=== PATIENT | male | born 1945 | race Caucasian/White ===

== ENCOUNTER 2023-10-25 20:20 | Outpatient (CLI) | payer MEDICARE, OTHER, SELFPAY ==
--- OUTSIDE RECORDS SUMMARY | 2023-10-25 20:26 | XMS_ITS | Encounter Summary ---
Author Name [facility] Organization [facility] Address [address] [place] [id number] Care Team Providers Care Graduate Rn Name Role Phone DEBBIE SYED Primary Care Provider Unavailabl e Insurance Providers: All historical and current Section Date Range: From patient's date of to the date document was created. This section includes the names of all active insurance providers for the patient. Insurance Provider Type of Coverage Plan Name Start of Policy Coverage End of Policy Coverage Group Number Member ID Insurance Provider's Telephone Number Policy Hawkins's Name Patient's Relationship to Policy Hawkins [employer]ICA [facility] (WNR) MEDICARE ADVANTAGE [facility] (WNR) Apr 10, 2021 [id number] KAT NAZARIO PATIENT MEDICARE (WNR) MEDICARE (M) PART A May 11, 1991 PART A [id number] [facility] [phone] KAT NAZARIO PATIENT MEDICARE (WNR) MEDICARE (M) PART B May 11, 1991 PART B [id number] KAT NAZARIO PATIENT Selected Encounter This section includes the information on record at [place] for the Encounter. Date/Time Encounter Type Encounter Description Reason Provider Source Mar 22, 2023 03:00 PM OFFICE O/P EST [place] 40-54 MIN PRIMARY CARE/MEDICINE ICD-10-CM I25.5 Ischemic cardiomyopathy MATTHEW SYED H I[facility] Encounter Template Text not used by [place] Assessments - Encounter Diagnoses This section includes the primary and secondary diagnoses documented for the Encounter. Date/Time Primary/Secondary Diagnosis Diagnosis Name Provider Source Mar 22, 2023 05:13 PM PRIMARY Ischemic cardiomyopathy MATTHEW SYED [facility] Mar 22, 2023 05:13 PM SECONDARY Acute embolism and thrombosis of unspecified vein MATTHEW SYED [facility] Mar 22, 2023 05:13 PM SECONDARY Athscl heart disease of [place] coronary artery w/o ang pctrs [facility] Mar 22, 2023 05:13 PM SECONDARY Stauffer's esophagus without dysplasia [facility] Mar 22, 2023 05:13 PM SECONDARY Chronic obstructive pulmonary disease, unspecified [facility] Mar 22, 2023 05:13 PM SECONDARY Essential (primary) hypertension YAHAIRAMATTHEW [facility] Mar 22, 2023 05:13 PM SECONDARY Hyperlipidemia, unspecified [facility] Mar 22, 2023 05:13 PM SECONDARY Hypokalemia [facility] Mar 22, 2023 05:13 PM SECONDARY terminal operations manager (current) use of anticoagulants MATTHEW SYED [facility] Mar 22, 2023 05:13 PM SECONDARY Nasal congestion [facility] Mar 22, 2023 05:13 PM SECONDARY Presence of aortocoronary bypass graft [facility] Plan of Treatment: Future Appointments (+ 6 months) and Future Tests (+/- 45 days) The Plan of Treatment section includes future care activities for the patient from all [facility]. This section includes future appointments and future orders which are active, pending or scheduled. Future Appointments This section includes appointments that were scheduled to occur 6 months from the date of the Encounter, up to a maximum of 20 appointments. The data comes from all [facility]. Appointment Date/Time Appointment Type Appointme nt Facility Name May 17, 2023 10:00 AM AMBULATORY - PS[facility]RY [facility] Jul 05, 2023 09:30 AM AM[facility] Jul 12, 2023 02:00 PM AMBULATORY - SURGERY [facility] Jul 12, 2023 03:00 PM AMBULATORY - PSYCHIATRY [facility] Sep 13, 2023 10:00 AM AMBULATORY - PSYCHIATRY [facility] Lab Results: +/- 30 days of the encounter This section includes the Chemistry and Hematology Lab Results on record with [place] for the patient. Radiology Reports and Pathology Reports are provided separately, in subsequent sections. Lab Results This section contains the Chemistry/Hematology Results that were resulted 30 days before or 30 daysafter the date of the Encounter. Date/Time Source Result Type Result - Unit Interpretation Reference Range Comment Mar 22, 2023 01:45 PM [facility] HEMOGLOBIN A1C Specimen Type: BLOOD Comment: Values obtained from A1C measurements can vary. For typical A1C assays, a reported value of 7.0 could actually be between 6.7 and 7.3 if measured by a reference method. A reported value of 9.0 could actually be between 8.7 and 9.3. Ref: http://www.ngs p.org/CAPdata. asp Ordering Provider: DUSTIN PIKE Report Released Date/Time: Mar 25, 2022 01:22 PM Reporting Lab: [facility] [id number] Performing Lab: [facility] [id number] HEMOGLOBIN A1C 4.9 4.0-6.0 Mar 22, 2023 01:45 PM [facility] LIPID PANEL,NON-FASTING Specimen Type: PLASMA No comment entered. Ordering Provider: DUSTIN PIKE Report Released Date/Time: Mar 25, 2022 01:22 PM Reporting Lab: [facility] [id number] Performing Lab: [facility] [id number] CHOLESTEROL 112 mg/dL <199 .HDL 50 mg/dL >40 LDL CALCULATION 42 mg/dL <99 VLDL CALCULATION 20 mg/dL <29 NON HDL CHOLESTEROL 62 mg/dL <129 TRIG(NON FASTING) 99 mg/dL <149 Mar 22, 2023 01:45 PM [facility] BASIC METABOLIC PANEL+MG Specimen Type: PLASMA No comment entered. Ordering Provider: DUSTIN PIKE Report Released Date/Time: Mar 25, 2022 01:22 PM Reporting Lab: [facility] [id number] Performing Lab: [facility] [id number] CREATININE 1.2 mg/dL 0.7-1.2 UREA NITROGEN 15 mg/dL 8-26 GLUCOSE 91 mg/dL 70-100 SODIUM 147 mmol/L H 136-145 POTASSIUM 2.8 mmol/L L 3.5-5.1 CHLORIDE 107 mmol/L 98-107 CO2 31 mmol/L H 22-29 CALCIUM 9.7 mg/dL 8.4-10.2 MAGNESIUM 2.1 mg/dL 1.6-2.6 ANION GAP 9 mmol/L 5-15 .CREAT EGFR(CKD-EPI) 63 >60 Vital Signs: All taken on the encounter date This section contains inpatient and outpatient Vital Signs collected on the date of the Encounter. Date/Time Temperature Pulse Blood Pressure Respiratory Rate SP02 Pain Height Weight Body Mass Index Source Mar 22, 2023 02:55 PM 97.3 F 91 /min 137/85 mm[Hg] 20 /min 91 % 0 66 in 248.5 lb 40 [place] [facility] Social History: Smoking Status (Most current) and Tobacco Use (All prior to encounter date) This section includes the most current, and the historical, smoking and tobacco- related health factors from the [place] facility where the Encounter took place. Current Smoking Status This section includes the most current smoking, or tobacco-related health factor, from the [place] facility where the Encounter took place. Date/Time Current Smoking Status Comment Facil ity Mar 22, 2023 03:00 PM VA-TOBACCO FORMER USER [facility] Tobacco Use History This section includes a history of the smoking, or tobacco-related health factors, that were collected on or before the date of the Encounter. The data comes from the [place] facility where the Encounter took place. Date/Time Smoking Status/Tobacco Use Comment F acility Mar 22, 2023 03:00 PM VA-TOBACCO QUIT 15 YRS OR MORE [facility] Mar 25, 2022 12:45 PM VA-TOBACCO FORMER USER [facility] Mar 25, 2022 12:45 PM VA-TOBACCO QUIT 15 YRS OR MORE [facility] Mar 18, 2021 10:00 AM VA-TOBACCO FORMER USER [facility] Mar 18, 2021 10:00 AM VA-TOBACCO QUIT 15 YRS OR MORE [facility] Oct 16, 2018 11:06 AM VA-TOBACCO FORMER USER [facility] Oct 16, 2018 11:06 AM VA-TOBACCO QUIT 15 YRS OR MORE [facility] Sep 08, 2017 10:30 AM FORMER TOBACCO USER 7Y OR JAKEE R [facility] September 02, 2016 10:04 AM FORMER TOBACCO USER 7Y OR GREATE R [facility] August 27, 2015 12:32 AM FORMER TOBACCO USER 7Y OR TASNEEM [place] [facility] August 28, 2014 08:53 AM FORMER TOBACCO USER 7Y OR TASNEEM R [facility] Sep 25, 2013 09:48 AM FORMER TOBACCO USER 7Y OR TASNEEM R [facility] Apr 25, 2006 10:07 AM FORMER TOBACCO USER 7Y OR [facility] [place] [facility] Advance Directives: All historical and current Section Date Range: From patient's date of to the date document was created. This section includes ALL of a patient's completed or amended [place] Advance and Rescinded Directives. The entries below indicate that a directive exists for the patient, but an actual copy is not included with this document. The data comes from all [place] facilities. Date Advance Directives Provider Source Apr 20, 2004 ADVANCE DIRECTIVE BABITA DIGGS [facility] Encounter Notes: All associated encounter notes This section contains the clinical notes associated to the Encounter. Date/Time Encounter Note(s) Provider Source Mar 22, 2023 02:58 PM INTERNAL MEDICINE OUTPATIENT NOTE: LOCAL TITLE: MEDICINE CLINIC NURSING NOTE STANDARD TITLE: INTERNAL MEDICINE OUTPATIENT NOTE DATE OF NOTE: MAR 22, 2023@14:58 ENTRY DATE: MAR 22, 2023@14:58:57 AUTHOR: BRE SOLANO COSIGNER: URGENCY: STATUS: COMPLETED TYPE OF VISIT: Appointment Check In Type of appointment: In-person appointment REASON FOR VISIT: annual check up ALLERGIES: LISINOPRIL (September 02, 2010) VITAL SIGNS: Blood Pressure: 137/85 (03/22/2023 14:55) Pulse: 91 (03/22/2023 14:55) Respiration: 20 (03/22/2023 14:55) Temperature: 97.3 F [36.3 C] (03/22/2023 14:55) Weight: 248.5 lb [112.72 kg] (03/22/2023 14:55) Height: 66 in [167.6 cm] (03/22/2023 14:55) BMI: 40.2 O2 Sat: 91% (03/22/2023 14:55) Pain: 0 (03/22/2023 14:55) PAIN SCREEN: Patient is not having significant pain that they wish to discuss with their provider today. MEDICATION Patient reports the following changes regarding the current pharmacy list of medications: stopped Multivitamins Over the Counter/Herbal Medications: The patient states that they take some outside medications and/or herbals. Nursing Annual Screening: Fall History Screen During the past 12 months, have you had any falls? Patient does not report any falls in the past 12 months. MEDICATIONS: Patient is on one of the following medication classes: Antihypertensives, Antidepressants, Antipsychotics, Diuretics, or Controlled substance medication used for pain. FALL RISK ADVICE: Fall Risk Advice provided. Handout entitled Fall Prevention At Home reviewed and given to patient and/or significant other. Script Talk Screen Are you able to read your prescription bottles with your glasses, magnifiers or other aids? Yes or patient not taking any prescriptions. Skin Screen Patient reports any current pressure ulcers, a history of pressure ulcers, or a wound from a medical biller or Patient is bed-confined or a wheelchair-user or Patient requires assistance to transfer/change position No, Skin Screen is Negative Home Abuse/Violence Screen Is your home free of abuse and violence? Yes MOVE! Program Screen Body Mass Index (BMI)= 40.2 [place]: Collection DT Specimen Test Name Result Units Ref Range 03/22/2023 13:45 BLOOD !! HEMOGLOBIN A1C 4.9 % 4.0 - 6.0 !! Indicates COMMENTS AVAILABLE...Refer to Interim Lab Report. [facility] Hgb A1C: No data available [place] Hgb A1C: No data available Point of Care Hgb A1C: POC HGB A1C____ Outpatient Nutrition Screen Body Mass Index (BMI)= 40.2 [place]: Collection DT Specimen Test Name Result Units Ref Range 03/22/2023 13:45 BLOOD !! HEMOGLOBIN A1C 4.9 % 4.0 - 6.0 !! Indicates COMMENTS AVAILABLE...Refer to Interim Lab Report. [facility]y Hgb A1C: No data available [place] Hgb A1C: No data available Point of Care Hgb A1C: POC HGB A1C____ Is patient's BMI less than 18.5? No Does patient have swallowing, coughing, or chewing problems affecting oral intake? No Has patient experienced unplanned weight loss or gain greater than 10 pounds over the last 2 months? No Is patient's Hgb A1C (Glycosylated Hemoglobin) greater than 9.5? No Is patient receiving Total Parenteral Nutrition (TPN) or Tube Feedings? No Patient Health Education Screen BARRIERS/SPECIAL NEEDS: Visual limitations PREFERRED STYLE OF LEARNING: Watching something Client Assistive Service (MARTHA) Screen Does the patient require assistance with outpatient visit? No Tobacco Use Screening: The patient is a former tobacco user. The patient quit fifteen or more years ago. Homelessness/Food Insecurity Screen: In the past 2 months, have you been living in stable housing that you own, rent, or stay in as part of a household? Yes - Living in stable housing. Are you worried or concerned that in the next 2 months you may NOT have stable housing that you own, rent, or stay in as part of a household? No - Not worried about housing near future The [place] reports the following: Within the past 12 months, you worried whether your food would run out before you got money to buy more. Never true Within the past 12 months, the food you bought just didn't last and you didn't have money to get more. Never true Food Insecurity Resources /es/ BRE SOLANO LPN LICENSED PRACTICAL NURSE Signed: 03/22/2023 15:02 BRE SOLANO [facility] Mar 22, 2023 02:30 PM INTERNAL MEDICINE NOTE: LOCAL TITLE: MEDICINE CLINIC NOTE STANDARD TITLE: INTERNAL MEDICINE NOTE DATE OF NOTE: MAR 22, 2023@14:30 ENTRY DATE: MAR 21, 2023@16:53:10 AUTHOR: DEBBIE SYED COSIGNER: URGENCY: STATUS: COMPLETED SUBJECT: CLINIC VISIT GENERAL INTERNAL MEDICINE CLINIC PROGRESS NOTE JANN NAZARIO is a 78 year old MALE with the following CHIEF COMPLAINT: ESTABLISH CARE WITH A NEW PHYSICIAN THIS AN ESTABLISHED PATIENT IN THE PRIMARY CARE CLINIC HPI: Jann has a medical history notable for CAD (x/p CABG 1997), Ischemic cardiomyopathy, HLD, HTN, Mental health conditions (PTSD, BPDO, Social phobia, Depression, Insomnia), AUD in remission, Obesity, ED, GAYLA, DVT LLE, On anticoagulation, Stauffer's esophagus, Venous insufficiency, COPD, Allergic rhinitis, Co-managed care Non [place] clinicians: Dr Bre Pham [facility] phone #[phone] Cardiology: ?name [place] clinicians following: Mental health Today, we reviewed 's health history in detail, outside records (if applicable and available), pertinent chart notes, medications, any need for refills, pertinent test results, and routine HCM. Additional concerns today included: Had left knee replaced in Dec. Recovering as anticipated. Today's potassium came back low. Asymptomatic. Reports his PCP prevously had him on a potassium supplement, but not currently. Has some nasal congestion/throat phlegm Wants fresh pair of compression stockings Tutor has made some med changes (unknown what exactly) The following preventive care screening and other chronic disease management records were reviewed: Immunizations: offered any vaccines that are due, see rooming staff note Blood pressure trends (home, clinic): reviewed BMI: Diet, Exercise: reviewed Labs: See test results section See nursing note regarding the following screening: Pain, suicide, depression, alcohol use, toxic exposures, fall risk, skin screen, home abuse/violence, nutriton, health education, tobacco use use. Today's nurse's notes were reviewed. Active problems - Computerized Problem List is the source for the followin. Posttraumatic stress disorder (SNOMED CT 78500526) 2. Obesity 3. CHRONIC PERIODONTITIS 4. UNSPECIFIED DENTAL CARIES 5. BROKEN TOOTH 6. UNSP ACQUIRED ABSENCE TEETH 7. Erectile dysfunction 8. Bipolar disorder 9. Nondependent alcohol abuse in remission 10. DENTAL DISORDER NOS 11. Social phobia 12. Ectropion, Unspec 13. Thromboembolism of vein - LLE x 3, on coumadin since 1994 14. Long-term current use of anticoagulant (SNOMED CT 353512144) 15. History of coronary artery bypass grafting 16. Tremor 17. Coronary arteriosclerosis (SNOMED CT 39523151) - CABG 3v 1997 at [facility] 18. Hyperlipidemia 19. Essential hypertension 20. Cataract nos 21. Depressive disorder 22. Peripheral venous insufficiency 23. Stauffer's esophagus (SNOMED CT 779735823) 24. Chronic obstructive lung disease (SNOMED CT 23478897) 25. ACCRETIONS ON TEETH 26. Sleep apnea - AVAPS: Min IPAP 24, Max 27, EPAP: 16, Vt: 560, Rate: 14, Med F20 27. Primary localised osteoarthrosis of shoulder region 28. Ischemic cardiomyopathy SURGICAL HISTORY: 12/19/2022 Left total knee arthroplasty FAMILY HISTORY: SOCIAL HISTORY: Relationship/Living situation: Children Occupation: Enjoys: Substance use history: Tobacco use, smoking: former, quit more than 15 years ago Smokeless tobacco use: Vaping: Alcohol use: dependence, in remission Recreational drug use: hx: Active and Recently Outpatient Medications (including Supplies): Active Outpatient Medications Status 1) ALBUTEROL 90MCG (CFC-F) 200D ORAL INHL INHALE 1-2 ACTIVE PUFFS 90MCG/ACTUAT BY INHALATION EVERY 4 HOURS NEEDED FOR SHORTNESS OF BREATH *SHAKE WELL* (FOR IMMEDIATE RELIEF) 2) BUPROPION HCL 150MG 12HR SA TAB TAKE ONE TABLET BY ACTIVE MOUTH TWICE A DAY FOR YOUR MOOD 3) BUSPIRONE HCL 10MG TAB TAKE TWO TABLETS BY MOUTH ACTIVE TWICE A DAY FOR ANXIETY -MAY ALSO TAKE TWO ADDITIONAL TABLETS DAILY IF NEEDED -MAXIMUM OF 6 TABLETS PER DAY 4) CARVEDILOL 12.5MG TAB TAKE ONE TABLET BY MOUTH TWICE ACTIVE A DAY FOR HEART FAILURE .FULL TAB, NOTE DOSE INCREASE 5) CHOLECALCIF 25MCG (D3-1,000UNIT) TAB TAKE ONE TABLET ACTIVE BY MOUTH EVERY MORNING 6) FLUTICASONE PROP 50MCG 120D NASAL INHL SPRAY 1 SPRAY ACTIVE IN EACH NOSTRIL EVERY MORNING USE REGULARLY FOR RELIEF OF ALLERGIES/CONGESTION 7) FUROSEMIDE 40MG TAB TAKE TWO TABLETS BY MOUTH TWICE A ACTIVE DAY 8) OLODATEROL/TIOTROP 2.5MCG/ACTUAT 60D INH INHALE 2 ACTIVE PUFFS BY INHALATION EVERY DAY TO PREVENT TROUBLE BREATHING 9) OMEPRAZOLE 20MG EC CAP TAKE ONE CAPSULE BY MOUTH ACTIVE EVERY DAY TO DECREASE STOMACH ACID -TAKE ON AN EMPTY STOMACH, AT LEAST 30 MINUTES BEFORE A MEAL 10) PRAVASTATIN NA 10MG TAB TAKE ONE TABLET BY MOUTH ACTIVE EVERY DAY CHOLESTEROL FOR CHOLESTEROL 11) PRIMIDONE 50MG TAB TAKE TWO TABLETS BY MOUTH EVERY ACTIVE DAY FOR TREMOR 12) SPIRONOLACTONE 25MG TAB TAKE ONE TABLET BY MOUTH ACTIVE EVERY MORNING 13) VANICREAM TOP CREAM APPLY A THIN LAYER TO DRY SKIN ACTIVE TOPICALLY TWICE A DAY XEROSIS TO MOISTURIZE 14) ZOLPIDEM TARTRATE 10MG TAB TAKE ONE TABLET BY MOUTH ACTIVE AT BEDTIME NEEDED FOR SLEEP Active Non-VA Medications Status 1) Non-VA FISH OIL 1000MG (500MG DHA/EPA) CAP 1GM MOUTH ACTIVE TWICE A DAY 2) Non-VA MULTIVITAMIN/MINERALS SENIOR FORMULA TAB 1 ACTIVE TABLET MOUTH EVERY DAY 3) Non-VA MULTIVITAMIN/OPTH AREDS SINGLE STR TAB 2 ACTIVE TABLETS MOUTH TWICE A DAY 4) Non-VA WARFARIN (COUMADIN) NA 5MG TAB 5MG MOUTH EVERY ACTIVE DAY MEDICATION RECONCILIATION: completed Allergies listed below were also reviewed/updated for accuracy. ALLERGIES: LISINOPRIL (September 02, 2010) EXAM: VITAL SIGNS: Blood Pressure: 137/85 (03/22/2023 14:55) Pulse: 91 (03/22/2023 14:55) Respiration: 20 (03/22/2023 14:55) Temperature: 97.3 F [36.3 C] (03/22/2023 14:55) Weight: 248.5 lb [112.72 kg] (03/22/2023 14:55) Height: 66 in [167.6 cm] (03/22/2023 14:55) BMI: 40.2 O2 Sat: 91% (03/22/2023 14:55) GEN: Alert, no acute distress EENT: Pupils equal, round, reactive to light. No icterus. Ear canals patent w/o significant cerumen, TM's normal,nasal passages clear w/normal appearing turbinates, oral mucosa moist,pharynx without erythema or exudate Neck: Full active ROM, no cervical lymphadenopathy,thyroid smooth, symmetric, no nodules Lungs: Clear to auscultation throughout Cardiac: Regular rate and rhythm, no murmurs, rubs or gallops, no carotid bruits, JVP: normal/not elevated Abdomen: Normal bowel sounds, soft, non tender,no hepatosplenomegaly or masses, no CVA tenderness or masses Extremities: No peripheral edema, is wearing his compression stockings DP pulses 2+ Skin: No rashes or suspicious lesions on exposed surfaces, no jaundice MSK: No joint deformities noted on hands Neuro: CN's 2-12 intact, able to get on/off exam table without assistance. Strength grossly intact. No tremor noted. Psych: actively engaged in conversation, full range of affect, no psychomotor slowing, no signs of agitation TEST RESULTS: Collection time: Mar 22, 2023@13:45 Test Name Result Units Range --------- ------ ----- ----- SODIUM 147 H mmol/L 136 - 145 POTASSIUM 2.8 L mmol/L 3.5 - 5.1 CHLORIDE 107 mmol/L 98 - 107 CO2 31 H mmol/L 22 - 29 ANION GAP 9 mmol/L 5 - 15 GLUCOSE 91 mg/dL 70 - 100 UREA NITROGEN 15 mg/dL 8 - 26 CREATININE 1.2 mg/dL 0.7 - 1.2 CALCIUM 9.7 mg/dL 8.4 - 10.2 MAGNESIUM 2.1 mg/dL 1.6 - 2.6 CHOLESTEROL 112 mg/dL Ref: <=199 TRIG(NON FASTING) 99 mg/dL Ref: <=149 .HDL 50 mg/dL Ref: >=40 LDL CALCULATION 42 mg/dL Ref: <=99 HEMOGLOBIN A1C 4.9 % 4.0 - 6.0 Collection time: Mar 25, 2022@11:39 Test Name Result Units Range --------- ------ ----- ----- SODIUM 143 mmol/L 136 - 145 POTASSIUM 4.1 mmol/L 3.5 - 5.1 CHLORIDE 106 mmol/L 98 - 107 CO2 28 mmol/L 22 - 29 ANION GAP 9 mmol/L 5 - 15 GLUCOSE 102 H mg/dL 70 - 100 UREA NITROGEN 22 mg/dL 8 - 26 CREATININE 1.2 mg/dL 0.7 - 1.2 .CREAT EGFR(CKD-EPI) 63 Ref: >=60 CALCIUM 9.3 mg/dL 8.4 - 10.2 MAGNESIUM 2.0 mg/dL 1.6 - 2.6 CHOLESTEROL 136 mg/dL Ref: <=199 TRIG(NON FASTING) 91 mg/dL Ref: <=149 .HDL 51 mg/dL Ref: >=40 LDL CALCULATION 67 mg/dL Ref: <=99 HEMOGLOBIN A1C 5.1 % 4.0 - 6.0 Specimen Collection Date: Jun 16, 1999@10:03 Test name Result units Ref. range Site Code ANTI-HEP C(EIA) NEGATIVE Ref: -neg- [618] Patient was informed of available lab, imaging, and other study results associated with today's visit. ASSESSMENT AND PLAN: CAD (x/p CABG 1997), Ischemic cardiomyopathy, HLD, HTN, Mental health conditions (PTSD, BPDO, Social phobia, Depression), AUD in remission, Obesity, ED, GAYLA, Hx DVT LLE, On anticoagulation, Stauffer's esophagus, Venous insufficiency, COPD, Hypokalemia on today's labs Nasal congestion Co-managed care Plan: Print out provided on potassium rich foods. Instructed to have BMP drawn by PCP in [facility] at next INR draw (4-6 weeks). PACT RN: please reach out to 's PCP office and inform them of the above plan regarding hypokalemia. See contact info above. Neti pot saline irrigation prn Prosthetics for replacement compression stockings Gave pamphlet on co-managed care, will need cardiology records if wants their prescriptions through [place] RTC one year Patient/Surrogate indicates readiness to learn, verbalizes understanding, agreement and satisfaction with the treatment plan. REMINDERS: Medication Reconciliation: Education Evaluations *Was medication education provided for NEW medications or CHANGES to medications? (including medication name, dose, route, reason for use, and potential side effects). No new medications or medication changes during this encounter. TERATOGENIC MED & CONTRACEPTION REVIEW (Optional)... === MEDICATION RECONCILIATION === Review Done: The medication list shown below was verified for accuracy and it includes all pending medications/active medications/all medications or discontinued within the last 90 days/all remote medications and non-VA medications. If a given category (i.e. remote meds) is not shown, that means that a patient doesn't have a medication(s) in that category. Allergies listed below were also reviewed/updated for accuracy. Allergies/ADR from [facility] may not display in CPRS. Use JLV MRT5 - Allergies/ADRs FACILITY ALLERGY/ADR -------- No Remote Allergy/ADR Data available for this patient [facility] LISINOPRIL Active and Recently Outpatient Medications (including Supplies): Issue Date Status Last Fill Active Outpatient Medications Refills Expiration 1) ALBUTEROL 90MCG (CFC-F) 200D ORAL INHL ACTIVE Issu:11-14-22 Qty: 2 for 50 days Sig: INHALE 1-2 Refills: 3 Last:12-14-22 PUFFS 90MCG/ACTUAT BY INHALATION EVERY Expr:11-15-23 4 HOURS NEEDED FOR SHORTNESS OF BREATH *SHAKE WELL* (FOR IMMEDIATE RELIEF) 2) BUPROPION HCL 150MG 12HR SA TAB Qty: ACTIVE Issu:11-09-22 180 for 90 days Sig: TAKE ONE TABLET Refills: 2 Last:01-28-23 BY MOUTH TWICE A DAY FOR YOUR MOOD Expr:11-10-23 3) BUSPIRONE HCL 10MG TAB Qty: 360 for 90 ACTIVE Issu:11-09-22 days Sig: TAKE TWO TABLETS BY MOUTH Refills: 3 Last:12-22-22 TWICE A DAY FOR ANXIETY -MAY ALSO TAKE Expr:11-10-23 TWO ADDITIONAL TABLETS DAILY IF NEEDED -MAXIMUM OF 6 TABLETS PER DAY 4) CARVEDILOL 12.5MG TAB Qty: 180 for 90 ACTIVE Issu:03-25-22 days Sig: TAKE ONE TABLET BY MOUTH Refills: 0 Last:12-13-22 TWICE A DAY FOR HEART FAILURE .FULL Expr:03-26-23 TAB, NOTE DOSE INCREASE 5) CHOLECALCIF 25MCG (D3-1,000UNIT) TAB ACTIVE Issu:03-25-22 Qty: 100 for 90 days Sig: TAKE ONE Refills: 0 Last:02-25-23 TABLET BY MOUTH EVERY MORNING Expr:03-26-23 6) FLUTICASONE PROP 50MCG 120D NASAL INHL ACTIVE Issu:03-25-22 Qty: 2 for 90 days Sig: SPRAY 1 SPRAY Refills: 2 Last:06-16-22 IN EACH NOSTRIL EVERY MORNING USE Expr:03-26-23 REGULARLY FOR RELIEF OF ALLERGIES/CONGESTION 7) FUROSEMIDE 40MG TAB Qty: 360 for 90 ACTIVE Issu:03-25-22 days Sig: TAKE TWO TABLETS BY MOUTH Refills: 1 Last:12-07-22 TWICE A DAY Expr:03-26-23 8) OLODATEROL/TIOTROP 2.5MCG/ACTUAT 60D INH ACTIVE Issu:03-25-22 Qty: 1 for 30 days Sig: INHALE 2 Refills: 6 Last:12-07-22 PUFFS BY INHALATION EVERY DAY TO Expr:03-26-23 PREVENT TROUBLE BREATHING 9) OMEPRAZOLE 20MG EC CAP Qty: 90 for 90 ACTIVE Issu:03-25-22 days Sig: TAKE ONE CAPSULE BY MOUTH Refills: 0 Last:02-01-23 EVERY DAY TO DECREASE STOMACH ACID Expr:03-26-23 -TAKE ON AN EMPTY STOMACH, AT LEAST 30 MINUTES BEFORE A MEAL 10) PRAVASTATIN NA 10MG TAB Qty: 90 for 90 ACTIVE Issu:03-25-22 days Sig: TAKE ONE TABLET BY MOUTH Refills: 2 Last:07-30-22 EVERY DAY CHOLESTEROL FOR CHOLESTEROL Expr:03-26-23 11) PRIMIDONE 50MG TAB Qty: 180 for 90 days ACTIVE Issu:12-16-22 Sig: TAKE TWO TABLETS BY MOUTH EVERY Refills: 3 Last:12-21-22 DAY FOR TREMOR Expr:12-17-23 12) SPIRONOLACTONE 25MG TAB Qty: 90 for 90 ACTIVE Issu:03-25-22 days Sig: TAKE ONE TABLET BY MOUTH Refills: 0 Last:02-01-23 EVERY MORNING Expr:03-26-23 13) VANICREAM TOP CREAM Qty: 454 for 60 ACTIVE Issu:03-25-22 days Sig: APPLY A THIN LAYER TO DRY Refills: 5 Last:03-28-22 SKIN TOPICALLY TWICE A DAY XEROSIS TO Expr:03-26-23 MOISTURIZE 14) ZOLPIDEM TARTRATE 10MG TAB Qty: 30 for ACTIVE Issu:03-10-23 30 days Sig: TAKE ONE TABLET BY MOUTH Refills: 2 Last:03-17-23 AT BEDTIME NEEDED FOR SLEEP Expr:09-10-23 Issue Date Status Last Fill Pending Outpatient Medications Refills Expiration 1) CARVEDILOL 12.5MG TAB Qty: 180 Sig: PENDING TAKE ONE TABLET BY MOUTH TWICE A DAY Refills: 0 .FULL TAB, NOTE DOSE INCREASE 2) CHOLECALCIF 25MCG (D3-1,000UNIT) TAB PENDING Qty: 100 Sig: TAKE ONE TABLET BY Refills: 0 MOUTH EVERY MORNING 3) FUROSEMIDE 40MG TAB Qty: 360 Sig: TAKE PENDING TWO TABLETS BY MOUTH TWICE A DAY Refills: 0 4) OLODATEROL/TIOTROP 2.5MCG/ACTUAT 60D INH PENDING Qty: 1 Sig: INHALE 2 PUFFS BY Refills: 0 INHALATION EVERY DAY TO PREVENT TROUBLE BREATHING 5) OMEPRAZOLE 20MG EC CAP Qty: 90 Sig: PENDING TAKE ONE CAPSULE BY MOUTH EVERY DAY TO Refills: 0 DECREASE STOMACH ACID -TAKE ON AN EMPTY STOMACH, AT LEAST 30 MINUTES BEFORE A MEAL 6) PRAVASTATIN NA 10MG TAB Qty: 90 Sig: PENDING TAKE ONE TABLET BY MOUTH EVERY DAY FOR Refills: 0 CHOLESTEROL 7) SPIRONOLACTONE 25MG TAB Qty: 90 Sig: PENDING TAKE ONE TABLET BY MOUTH EVERY MORNING Refills: 0 8) VANICREAM TOP CREAM Qty: 454 Sig: PENDING APPLY A THIN LAYER TO DRY SKIN Refills: 0 TOPICALLY TWICE A DAY TO MOISTURIZE Issue Date Status Last Fill Inactive Outpatient Medications Refills Expiration 1) ALBUTEROL 90MCG (CFC-F) 200D ORAL INHL DISCONTINUED Issu:12-24-21 Qty: 2 for 50 days Sig: INHALE 1-2 Refills: 0 Last:11-09-22 PUFFS 90MCG/ACTUAT BY INHALATION EVERY Expr:12-25-22 4 HOURS NEEDED FOR SHORTNESS OF BREATH *SHAKE WELL* (FOR IMMEDIATE RELIEF) 2) BUPROPION HCL 150MG 12HR SA TAB Qty: DISCONTINUED Issu:07-04-22 180 for 90 days Sig: TAKE ONE TABLET Refills: 3 Last:07-07-22 BY MOUTH TWICE A DAY FOR YOUR MOOD Expr:07-05-23 3) BUSPIRONE HCL 10MG TAB Qty: 360 for 90 DISCONTINUED Issu:07-04-22 days Sig: TAKE TWO TABLETS BY MOUTH Refills: 2 Last:09-23-22 TWICE A DAY FOR ANXIETY -MAY ALSO TAKE Expr:07-05-23 TWO ADDITIONAL TABLETS DAILY IF NEEDED -MAXIMUM OF 6 TABLETS PER DAY 4) LOSARTAN 50MG TAB Qty: 90 for 90 days Issu:12-24-21 Sig: TAKE ONE TABLET BY MOUTH EVERY Refills: 0 Last:09-14-22 DAY FOR BLOOD PRESSURE Expr:12-25-22 5) PRIMIDONE 50MG TAB Qty: 135 for 90 days DISCONTINUED Issu:08-17-22 Sig: TAKE ONE AND ONE-HALF TABLETS BY (EDIT) Last:12-07-22 MOUTH EVERY DAY FOR TREMOR Refills: 2 Expr:08-18-23 6) PRIMIDONE 50MG TAB Qty: 90 for 90 days DISCONTINUED Issu:03-25-22 Sig: TAKE ONE TABLET BY MOUTH EVERY Refills: 2 Last:07-27-22 MORNING Expr:03-26-23 7) ZOLPIDEM TARTRATE 10MG TAB Qty: 30 for DISCONTINUED Issu:02-21-23 30 days Sig: TAKE ONE TABLET BY MOUTH Refills: 2 Last:02-25-23 AT BEDTIME NEEDED FOR SLEEP Expr:08-24-23 Start Date Active Non-VA Medications Refills Expiration 1) Non-VA FISH OIL 1000MG (500MG DHA/EPA) ACTIVE CAP SiGM MOUTH TWICE A DAY 2) Non-VA MULTIVITAMIN/MINERALS SENIOR ACTIVE FORMULA TAB Si TABLET MOUTH EVERY DAY 3) Non-VA MULTIVITAMIN/OPTH AREDS SINGLE ACTIVE STR TAB Si TABLETS MOUTH TWICE A DAY 4) Non-VA WARFARIN (COUMADIN) NA 5MG TAB ACTIVE SiMG MOUTH EVERY DAY 33 Total Medications Time spent today, including reviewing prior VA- and non-VA notes and test results, independently obtaining history, performing a medically appropriate exam and/or evaluation, documenting clinical information in the EHR progress note, updating the EHR problem list, independently interpreting results, communicating results, counseling and educating patient/surrogate, coordinating care with other health team members, entering orders, completing reminders and coding the encounter: Total Time: 45 min Debbie Syed MD General Internal Medicine [facility] VINCENZO Mcginnis /es/ Debbie Syed MD Physician Signed: 03/22/2023 17:13 DEBBIE SYED [facility]
--- OUTSIDE RECORDS SUMMARY | 2023-10-25 20:26 | XMS_ITS | Encounter Summary ---
Author Organization [facility] Address [address] [place] [address] Care Team Providers Care Flask Handler Name Role Phone Bre Pham MD Primary Care Provider [phone] Encounter Details Date Type Department Care Team (Late st Contact Info) Description 08/03/2023 Office Communication [facility] [address] [place] [address] Angel Bains MD [address] [place] [address] Social History Tobacco Use Types Packs/Day Years Used Date Smoking Tobacco: Former Cigarettes 1 20 1 977 - 1996 Smokeless Tobacco: Never Alcohol Use Standard Drinks/Week Comments Not Currently 0 (1 standard drink = 0.6 oz pure alcohol) Stopped drinking 31 years ago Sex and Gender Information Value Date Recorded Sex Assigned at Not on file Gender Identity Not on file Sexual Orientation Not on file documented as of this encounter Miscellaneous Notes * Telephone Encounter - Abiodun Das - 08/03/2023 12:37 PM CDT Second call attempt made to reach the patient for scheduling. Mailed the Established Patient Letter to the patient to schedule 6 mos follow up in October with Dr. Bains. documented in this encounter Plan of Treatment Not on file documented as of this encounter Visit Diagnoses Not on filedocumented in this encounter Care Teams Flask Handler Relationship Specialty Start Date End Date Bre Pham MD [address] [facility] [place] [address] PCP - General Internal Medicine 04/16/23 documented as of this encounter
--- OUTSIDE RECORDS SUMMARY | 2023-10-25 20:26 | XMS_ITS | Encounter Summary ---
Author Organization [facility] Address [address] [place] [address] Care Team Providers Care Ultrasound Technologist Name Role Phone Bre Pham MD Primary Care Provider [phone] Encounter Details Date Type Department Care Team (Late st Contact Info) Description 08/03/2023 Office Communication [facility] [place] [address] [place] [address] Angel Bains MD [address] [place] [address] Social History Tobacco Use Types [...] Telephone Encounter - Abiodun Das - 08/03/2023 12:34 PM CDT Second call attempt made to reach the patient for scheduling. Mailed the Established Patient Letter to the patient to schedule 6 mos follow up with [address]. Bains. documented in this encounter Plan of Treatment Not on file documented as of this encounter Visit Diagnoses Not on filedocumented in this encounter Care Teams Ultrasound Technologist Relationship Specialty Start Date End Date Bre Pham MD [address] [place] [address] PCP - General Internal Medicine 04/16/23 documented as of this encounter
--- OUTSIDE RECORDS SUMMARY | 2023-10-25 20:26 | XMS_ITS | Encounter Summary ---
Author Name [facility] Organization [facility] Address [address] [place] [address] Care Team Providers Care Marklogic Developer Name Role Phone ZOLTAN SYED Primary Care Provider Unavailabl e Insurance [...] Name Patient's Relationship to Policy Hawkins MEDICA [facility] (WNR) MEDICARE ADVANTAGE [facility] (WNR) Apr 10, 2021 [id number] [phone] [place]AT [place] PATIENT MEDICARE (WNR) MEDICARE (M) PART A May 11, 1991 PART A [id number] KAT NAZARIO PATIENT MEDICARE (WNR) MEDICARE (M) PART B May 11, 1989 PART B [id number] [phone] KAT NAZARIODiana PATIENT Selected Encounter This section includes the information on record at [place] for the Encounter. Date/Time Encounter Type Encounter Description Reason Pro vider Source Nov 01, 2022 05:56 PM Outpatient Encounter COMMUNITY CARE CONSULT IHE Encounter Template Text not used by VA Plan of Treatment: Future Appointments (+ 6 months) and Future Tests (+/- 45 days) The Plan of Treatment section includes future care activities for the patient from all VA treatmentfacilities. This section includes future appointments and future orders which are active, pending or scheduled. Future Appointments This section includes appointments that were scheduled to occur 6 months from the date of the Encounter, up to a maximum of 20 appointments. The data comes from all [place] treatment facilities. Appointment Date/Time Appointment Type Appointme nt Facility Name Nov 09, 2022 09:30 AM [place] [facility] Jan 09, 2023 10:00 AM [place] [facility] Mar 08, 2023 09:30 AM [place] [facility] Mar 22, 2023 01:45 PM [place] [facility] Mar 22, 2023 02:00 PM [place] [facility] Mar 22, 2023 03:00 [facility] Social History: Smoking Status (Most current) and Tobacco Use (All prior to encounter date) This section includes the most current, and the historical, smoking and tobacco- related health factors from the [place] facility where the Encounter took place. Current Smoking Status This section includes the most current smoking, or tobacco-related health factor, from the [place] facility where the Encounter took place. Date/Time Current Smoking Status Comment Facil ity Mar 25, 2022 12:45 PM VA-TOBACCO FORMER USER [facility] Tobacco Use History This section includes a history of the smoking, or tobacco-related health factors, that were collected on or before the date of the Encounter. The data comes from the [place] facility where the Encounter took place. Date/Time Smoking Status/Tobacco Use Comment F acility Mar 25, 2022 12:45 PM VA-TOBACCO QUIT 15 YRS OR MORE [facility] Mar 18, 2021 10:00 AM VA-TOBACCO FORMER USER [facility] Mar 18, 2021 10:00 AM VA-TOBACCO QUIT 15 YRS OR MORE [facility] Oct 16, 2018 11:06 AM VA-TOBACCO FORMER USER [facility] Oct 16, 2018 11:06 AM VA-TOBACCO QUIT 15 YRS OR MORE [facility] Sep 08, 2017 10:30 AM FORMER TOBACCO USER 7Y OR GREATE R [facility] September 02, 2016 10:04 AM FORMER TOBACCO USER 7Y OR [facility] August 27, 2015 12:32 AM FORMER TOBACCO USER 7Y OR [facility] August 28, 2014 08:53 AM FORMER TOBACCO USER 7Y OR [facility] Sep 25, 2013 09:48 AM FORMER TOBACCO USER 7Y OR [facility] Apr 25, 2006 10:07 AM FORMER TOBACCO USER 7Y OR [facility] Advance Directives: All historical and current Section Date Range: From patient's date of to the date document was created. This section includes ALL of a patient's completed or amended [place] Advance and Rescinded Directives. The entries below indicate that a directive exists for the patient, but an actual copy is not included with this document. The data comes from all [place] facilities. Date Advance Directives Provider Source Apr 20, 2004 ADVANCE DIRECTIVE BABITA DIGGS [facility] Encounter Notes: All associated encounter notes This section contains the clinical notes associated to the Encounter. Date/Time Encounter Note(s) Provider Source Nov 01, 2022 05:56 PM PHARMACY NOTE: LOCAL TITLE: PHARMACY NON [place] CARE MEDICATIONS STANDARD TITLE: PHARMACY NOTE DATE OF NOTE: NOV 01, 2022@17:56 ENTRY DATE: NOV 01, 2022@17:56:58 AUTHOR: ENRIQUE HILARIO EXP COSIGNER: URGENCY: STATUS: COMPLETED The [facility] RECEIVED electronic prescription(s) faxed from a NON-[place] Provider: Bre Pham Regarding Patient: JANN NAZARIO Date of : Feb Regarding PRESCRIPTION(s) written on 10/31/22 for: Medication:Primidone 50mg tab Medication: Medication: The NON-VA provider is unauthorized to write prescription(s) through the [facility] pharmacy. Prescription request REDIRECTED via FAX to one of the following for review: [x][facility] []Other: [] [facility] [] [facility] ([place] [] [facility] [] [facility] /[place]/ ENRIQUE HILARIO Process Engineering Intern Signed: 11/01/2022 17:57 ENRIQUE HILARIO [facility]
--- OUTSIDE RECORDS SUMMARY | 2023-10-25 20:26 | XMS_ITS | Encounter Summary ---
Author Organization [facility] Address [address] [place] [address] Care Team Providers Care Cleaning Maid Name Role Phone Bre Pham MD Primary Care Provider [phone] Reason for Visit * Reason Comments Follow-up Encounter Details Date Type Department Care Team (Late st Contact Info) Description 10/17/2023 11:00 AM EDT Office Visit [facility] [address] [place] [address] Angel Bains MD [address] [place] [address] Stage 3a chronic kidney disease (HCC) (Primary Dx); Hyperkalemia; Chronic systolic congestive heart failure (HCC) Social History Tobacco Use Types Packs/Day Years Used Date Smoking Tobacco: Former Cigarettes 977 - 1996 Smokeless Tobacco: Never Tobacco Cessation:Counseling Given: Not Answered Alcohol Use Standard Drinks/Week Comments Not Currently 0 (1 standard drink = 0.6 oz pure alcohol) Stopped drinking 31 years ago Sex and Gender Information Value Date Recorded Sex Assigned at Not on file Gender Identity Not on file Sexual Orientation Not on file documented as of this encounter Last Filed Vital Signs Vital Sign Reading Time Taken Comments Blood Pressure 122/58 10/17/2023 10:39 AM CDT Pulse 62 10/17/2023 10:39 AM CDT Temperature - - Respiratory Rate - - Oxygen Saturation 85% 10/17/2023 10:39 AM CDT Inhaled Oxygen Concentration - - Weight 108 kg (237 lb) 10/17/2023 10:39 AM CDT Height 160 cm (5' 3) 10/17/2023 10:39 AM CDT Body Mass Index 41.98 10/17/2023 10:39 AM CDT documented in this encounter Patient Instructions * Patient Instructions* Sylwia Gomez - 10/17/2023 11:00 AM CDT It was very nice to see both you and your today. Continue your current medications as you are taking at this time. We will plan for you to have a blood test towards the end of this week as scheduled along with your INR testing to address your potassium as well as your kidney function. Specifically since you were restarted on the spironolactone. If you need to be seen sooner or rehab if you have questions or concerns in the meantime, please do not hesitate to contact me at any time. We will contact you to schedule your 1 year follow up when the schedule becomes available. Labs should be completed 1-2 weeks prior. They will be faxed to Claudia Bains/DIYA Dao documented in this encounter Progress Notes * Angel Bains MD - 10/17/2023 11:00 AM CDT Images from the original note were not included. Patient: Alirio Bocanegra Date of : 1945 Chart: [id number] PCP: Bre Pham MD Cardiology: Ryan Barnhart Date of Service: 10/17/2023 Chief Complaint: Alirio Bocanegra returns in follow-up for CKD. Subjective: Patient returns in follow-up of the above. He was originally seen by me as a new patient in April2023. At that visit we confirmed stability in GFR and asked that he continue his usual cardiovascular medications which included MRA and Entresto. Blood work at that visit showed a creatinine of 1.02and a potassium of 3.8. In the interim he was admitted for 3 days in late August 2023 with an episode of near syncope. Just prior to this he underwent right [facility] with his postoperativecourse complicated by hyperkalemia. He was discharged on Entresto and carvedilol. Imaging of the chest has shown potentially worsening COPD. August 2023 labs showed a potassium of 4.4 and creatinine of 0.91. I note that his spironolactone was restarted on 21 September but follow-up BMP has not been performed toaddress both creatinine and potassium. He reports feeling well. He is visiting with his blueprinter later today. Assessment & Plan Problem List Stage 3a chronic kidney disease (HCC) - Primary Overview Erratic value stretching between 0.9-1.4 range from 2009-January 2013. There are no urinary records. CT of the chest July 2020: Normal adrenal glands. Probable renal parenchymal thinning incompletelyvisualized. Suspect underlying CKD from small vessel disease, hypertensive nephrosclerosis, and possible physiologic impact from cardiorenal syndrome. Certainly more erratic GFR as result of combination ARB and aldosterone blockade. With respect to future cares, he would refuse long- term dialysis if/when indicated. On the other hand he would consent to dialysis on an emergency basis if it meant that there was a chance for his kidneys to return. Current Assessment & Plan Stable. Planning to repeat blood work later this week when he has his INR done to assure stability and both potassium and creatinine. Continue current medications as ordered at this time. Relevant Orders Basic metabolic panel Chronic systolic congestive heart failure (HCC) Overview Echocardiogram June 2021: EF 40-45% with grade 2 pattern of LV diastolic dysfunction with no significant valve disease and aortic valve sclerosis. Ischemic cardiomyopathy (status post CABG in 1997). Status post PPM (2017) with upgrade to biventricular pacemaker (March 2020) Current Assessment & Plan Stable. Well compensated. Continue current medication regimen including Entresto, spironolactone, and loop diuretic. Hyperkalemia (Chronic) Current Assessment & Plan As noted in the narrative with hyperkalemia in August. Renal lactone restarted on 21 September but follow-up BMP has not been performed. Will plan for this follow-up blood work later this week. Return in about 1 year (around 10/16/2024) for Recheck. Angel Bains MD [facility] The following portions of the patient's chart were reviewed in this encounter and updated as appropriate: Tobacco Allergies Meds Problems Med Hx Surg Hx Fam Hx Review of Systems All other systems reviewed and are negative. Comprehensive ROS was obtained and negative unless otherwise noted in HPI Active Problems Patient Active Problem List Diagnosis Hypertensive chronic kidney disease with stage 1 through stage 4 chronic kidney disease, or unspecified chronic kidney disease Stage 3a chronic kidney disease (HCC) Obesity Elevated prostate specific antigen (PSA) Peripheral vascular disease (HCC) Chronic systolic congestive heart failure (HCC) Deep venous thrombosis (HCC) Pulmonary fibrosis (HCC) Adult obstructive sleep apnea Hyperkalemia History of Present Illness Past Medical History: Diagnosis Date Coronary atherosclerosis of unspecified type of vessel, [place] or graft Essential hypertension Other and unspecified hyperlipidemia Sleep apnea Past Surgical History: Procedure Laterality Date CARDIAC PACEMAKER PLACEMENT Family History Problem Relation Age of Onset Hypertension Mother Macular degeneration Mother Arthritis Mother Cancer Father No Known Problems Sister Cancer Sister No Known Problems Mother's Sister No Known Problems Maternal Grandmother No Known Problems Maternal Grandfather No Known Problems Paternal Grandmother No Known Problems Paternal Grandfather Social History Tobacco Use Smoking status: Former Current packs/day: 0.00 Average packs/day: 1 pack/day for 20.0 years (20.0 ttl pk-yrs) Types: Cigarettes Start date: 1976 Quit date: 1996 Years since quittin.5 Smokeless tobacco: Never Vaping Use Vaping status: Never Used Substance Use Topics Alcohol use: Not Currently Comment: Stopped drinking 31 years ago Drug use: Never Taking? Provider LT acetaminophen (TYLENOL) 500 MG tablet Murali Arias MD Take 1,000 mg by mouth if needed albuterol HFA (PROVENTIL HFA;VENTOLIN HFA) 108 (90 Base) MCG/ACT inhaler Murali Arias MD Inhale 2 puffs 4 (four) times a day if needed amoxicillin (AMOXIL) 500 MG tablet Murali Arias MD Take 4 capsules by mouth 1 (one) time if needed Take 4 capsule by mouth 1 hour prior to any dental procedure, including routine cleaning brimonidine-timolol (Combigan) 0.2-0.5 % ophthalmic solution Murali Arias MD Administer 1 drop into affected eye(s) in the morning and 1 drop in the evening. buPROPion SR (WELLBUTRIN SR) 150 MG 12 hr tablet Murali Arias MD Take 150 mg by mouth in the morning and 150 mg in the evening. busPIRone (BUSPAR) 10 MG tablet Murali Arias MD Take 20 mg by mouth in the morning and 20 mg in the evening. carvedilol (COREG) 12.5 MG tablet Murali Arias MD Take 1 tablet by mouth in the morning and 1 tablet in the evening. Take with meals. cholecalciferol (VITAMIN D-3) 25 MCG (1000 UT) capsule Murali Arias MD Take 1,000 Units by mouth in the morning. COD LIVER OIL PO Murali Arias MD Take 1 tablet by mouth 1 (one) time each day Empagliflozin (Jardiance) 10 MG tablet Murali Arias MD Take 1 tablet by mouth 1 (one) time each day fluticasone (FLONASE) 50 MCG/ACT nasal spray Murali Arias MD Administer 2 sprays into affected nostril(s) if needed furosemide (LASIX) 40 MG tablet Murali Arias MD Take 40 mg by mouth in the morning and 40 mg in the evening. latanoprost (XALATAN) 0.005 % ophthalmic solution Murali Arias MD Administer 1 drop into both eyes 1 (one) time each day omeprazole (PriLOSEC) [address] capsule Murali Arias MD Take 20 mg by mouth in the morning. primidone (MYSOLINE) 50 MG tablet Murali Arias MD Take 50 mg by mouth in the morning and 50 mg in the evening. rosuvastatin (CRESTOR) 20 MG tablet Murali Arias MD Take 1 tablet by mouth at bed time sacubitril-valsartan (Entresto) 49-51 MG per tablet Murali Arias MD Take 1 tablet by mouth in the morning and 1 tablet in the evening. senna-docusate (PERICOLACE) 8.6-50 MG per tablet Murali Arias MD Take 1-4 tablets by mouth 2 (two) times a day if needed spironolactone (ALDACTONE) 25 MG tablet Murali Arias MD Take 25 mg by mouth 1 (one) time each day Thiamine Mononitrate 100 MG tablet Murali Arias MD Take 100 mg by mouth in the morning. Vitamin B1 tab. Tiotropium [place]-Olodaterol 2.5-2.5 MCG/ACT aerosol solution Murali Arias MD Inhale 2 puffs if needed warfarin (COUMADIN) 5 MG tablet Murali Arias MD Take 5 mg by mouth Monday, , Monday 5 mg (1 tab), Monday, Monday, Monday, Monday 2.5 mg (0.5 tabs) zolpidem (AMBIEN) 10 MG tablet Murali Arias MD Take 10 mg by mouth at bed time Patient not taking: Allergies Allergen Reactions Lisinopril Other (see comments) Physical Exam BP 122/58 (BP Location: Left upper arm, Patient Position: Sitting, BP Cuff Size: Adult) Pulse 62 Ht 5' 3 (1.6 m) Wt 237 lb (108 kg) SpO2 (!) 85% BMI 41.98 kg/m?? Vitals reviewed. Constitutional: He is oriented to person, place, and time. Cardiovascular: Normal rate and regular rhythm. He exhibits no edema. Pulmonary/Chest: Effort normal and breath sounds normal. Abdominal: Soft. Bowel sounds are normal. Musculoskeletal: Normal range of motion. Neurological: He is alert and oriented to person, place, and time. Skin: Skin is warm and dry. Psychiatric: He has a normal mood and affect. His behavior is normal. Judgment normal. Chemistry and Bone Mineral Lab Units 04/17/23 1400 02/07/23 0000 10/12/22 0000 SODIUM mmol/L 146 144 140 POTASSIUM mmol/L 3.8 4.6 3.2* CHLORIDE mmol/L 105 107 102 CO2 mmol/L 29 27 29 CALCIUM mg/dL 9.8 9.8 9.6 GLUCOSE mg/dL 83 107* 106* BUN mg/dL 14 23 19 CREATININE mg/dL 1.02 1.33* 1.39* EGFR mL/min/1.73m2 76 56* 53* No lab exists for component: GLUCOSEUR, BILIRUBINUR, SPECGRAV, RBCUR, LEUKOCYTESUR, NITRITE I have performed a complete review of pertinent lab results. documented in this encounter Miscellaneous Notes * Assessment & Plan Note - Angel Bains MD - 10/17/2023 12:51 PM CDTAssociated Problem(s): Chronic systolic congestive heart failure (HCC) Stable. Well compensated. Continue current medication regimen including Entresto, spironolactone, and loop diuretic. * Assessment & Plan Note - Angel Bains MD - 10/17/2023 12:51 PM CDTAssociated Problem(s): Hyperkalemia As noted in the narrative with hyperkalemia in August. Renal lactone restarted on 21 September but follow-up BMP has not been performed. Will plan for this follow-up blood work later this week. * Assessment & Plan Note - Angel Bains MD - 10/17/2023 12:51 PM CDTAssociated Problem(s): Stage 3a chronic kidney disease (HCC) Stable. Planning to repeat blood work later this week when he has his INR done to assure stability and both potassium and creatinine. Continue current medications as ordered at this time. documented in this encounter Plan of Treatment Scheduled Orders Name Type Priority Associated Diagnoses Orde r Schedule Basic metabolic panel Lab Routine Stage 3a chronic kidney disease (HCC) Expected: 10/16/2024 (Approximate), Expires: 11/16/2024 documented as of this encounter Visit Diagnoses Diagnosis Stage 3a chronic kidney disease (HCC)- Primary Hyperkalemia Chronic systolic congestive heart failure (HCC) documented in this encounter Care Teams Cleaning Maid Relationship Specialty Start Date End Date Bre Pham MD [address] [facility] [place] [id number] PCP - General Internal Medicine 04/16/23 documented as of this encounter
--- OUTSIDE RECORDS SUMMARY | 2023-10-25 20:26 | XMS_ITS | Continuity of Care Document ---
Author Name [facility] Organization [facility] Care Team Providers Care Rd Mechanical Engineer Name Role Phone [facility] Unavailable Unavailable Problems Combined list of problems from Department of Defense and [facility] Affairs facilities. It does not include entries that were removed or entered in error. Problem Status Onset Date Problem Type Date of Resolution Comments Source ACCRETIONS ON TEETH Active Condition [place] [facility] Alcohol dependence Active Condition D 2022 Entered By: ZOLTAN YSED Comment: in remission [facility] Allergic rhinitis Active Condition [facility] Stauffer's esophagus (SNOMED CT 409682257) Active Condition [facility]ipolar disorder Active Condition [facility] BROKEN TOOTH Active Condition [facility] Cataract nos Active Condition [facility] Chronic obstructive lung disease (SNOMED CT 47372484) Active Condition [facility] CHRONIC PERIODONTITIS Active Condition [facility] Coronary arteriosclerosis (SNOMED CT 01671095) Active Condition Mar 21, 2023 Entered By: ZOLTAN SYED Comment: CABG 3v 1997 at [facility] DENTAL DISORDER NOS Active Condition [facility] Depressive disorder Active Condition [facility] Ectropion, Unspec Active Condition [facility] Erectile dysfunction Active Condition [facility] Essential hypertension Active Condition [facility] Exposure to potentially hazardous substance Active Condition Mar 21, 2023 Entered By: ZOLTAN SYED Comment: Agent [place] [facility] History of coronary artery bypass grafting Active Condition [facility] Hyperlipidemia [facility] Insomnia Active Condition [facility] Ischemic cardiomyopathy Active Condition [facility] Long-term current use of anticoagulant (SNOMED CT 126916810) Active Condition [facility] Obesity Active Condition Feb 27 Entered By: FREDI FLOREZ Comment: 10 [address] 04-27-12 276.5 --> 08-17-12 270.5 lbs [facility] Peripheral venous insufficiency Active Condition [facility] Posttraumatic stress disorder (SNOMED CT 82195989) Active Condition [facility] 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 [place] [facility] Sleep apnea Active Condition Dec 13, 2022 Entered By: JOHNY YEPEZ Comment: AVAPS: Min IPAP 24, Max 27, EPAP: 16, Vt: 560, Rate: 14, Med F20 [facility] Social phobia [facility] Thromboembolism of vein Active Condition Jul 07, 2004 Entered By: LEVI BRYAN Comment: LLE x 3, on coumadin since 1994 [facility] Tremor Active Condition [facility] UNSP ACQUIRED ABSENCE TEETH Active Condition [facility] UNSPECIFIED DENTAL CARIES Active Condition [facility] Tardive Dyskinesia Inactive Condition 02/17/2004 [facility] Diagnosis: ICD-10-CM F43.12 Post-traumatic stress disorder, chronic Active Diagnosis [facility] Diagnosis: ICD-10-CM G47.30 Sleep apnea, unspecified Active Diagnosis [facility] Diagnosis: ICD-10-CM K08.131 Complete loss of teeth due to caries, class I [facility] Diagnosis: ICD-10-CM I25.5 Ischemic cardiomyopathy Active Diagnosis [facility] Diagnosis: ICD-10-CM G47.33 Obstructive sleep apnea (adult) (pediatric) Active Diagnosis [facility] Diagnosis: ICD-10-CM R60.9 Edema, unspecified Active Diagnosis [facility] Diagnosis: ICD-10-CM I12.9 Hypertensive chronic kidney disease w 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 Medication Details Route Status Patient Instructions Prescription Expires Prescription Number Last Dispense Date Ordering Provider Order Date Order Qty Source ALBUTEROL 90MCG/ACTUA T (CFC-F) INHL,ORAL,8 .5GM DOSE COUNTER ALBUTERO L 90MCG/AC TUAT (CFC-F) INHL,ORA L,8.5GM DOSE COUNTER Active INHALE 1-2 PUFFS 90MCG/AC TUAT BY INHALATI ON EVERY 4 HOURS NEEDED FOR SHORTNES S OF BREATH *SHAKE WELL* (FOR IMMEDIAT E RELIEF) Nov 14, 2022 2 Nov 15, 2023 [id number] September 02, 2023 YAHA[place]A ZOL[place]AN [place] [facility] RESPIR ATORY (INHAL ATION) ACTIVE 11/15/2023 [id number] ZOLTAN SYED 2022 2 [place] [facility] ALBUTEROL 90MCG/ACTUA T (CFC-F) INHL,ORAL,8 .5GM DOSE COUNTER ALBUTERO L 90MCG/AC TUAT (CFC-F) INHL,ORA L,8.5GM DOSE COUNTER Disconti nued INHALE 1-2 PUFFS 90MCG/AC TUAT BY INHALATI ON EVERY 4 HOURS NEEDED FOR SHORTNES S OF BREATH *SHAKE WELL* (FOR IMMEDIAT E RELIEF) Dec 24, 2021 2 Dec 25, 2022 [id number] Nov 09, 2022 MARCIE PIKE [facility] RESPIR ATORY (INHAL ATION) DISCONT INUED 12/25/2022 [id number] MARCIE PIKE 2021 2 [place] [facility] BUPROPION HCL 150MG 12HR TAB,SA BUPROPIO N HCL 150MG 12HR TAB,SA Active TAKE ONE TABLET BY MOUTH TWICE A DAY FOR YOUR MOOD Jul 05, 2023 180 Jul 05, 2024 [id number] F Sep 23, 2023 INES LINARES RA [place] [facility] ORAL ACTIVE 07/05/2024 [id number] 4 ALICJA CRUZ 2023 180 [facility] BUPROPION HCL 150MG 12HR TAB,SA BUPROPIO N HCL 150MG 12HR TAB,SA Disconti nued TAKE ONE TABLET BY MOUTH TWICE A DAY FOR YOUR MOOD Nov 09, 2022 180 Nov 10, 2023 [id number] E Jan 28, 2023 INES LINARES RA [place] [facility] ORAL DISCONT INUED 11/10/2023 [id number] 3 ALICJA CRUZ 2022 180 [facility] [facility] BUSPIRONE HCL 10MG TAB BUSPIRON E HCL 10MG TAB Active TAKE TWO TABLETS BY MOUTH TWICE A DAY FOR ANXIETY -MAY ALSO TAKE TWO ADDITION AL TABLETS DAILY IF NEEDED -MAXIMUM OF 6 TABLETS PER DAY Jul 05, 2023 360 Jul 05, 2024 [id number] F Sep 23, 2023 INES LINARES RA [place] [facility] ORAL ACTIVE 07/05/2024 [id number] 4 ALICJA CRUZ 2023 360 [place] [facility] BUSPIRONE HCL 10MG TAB BUSPIRON E HCL 10MG TAB Disconti nued TAKE TWO TABLETS BY MOUTH TWICE A DAY FOR ANXIETY -MAY ALSO TAKE TWO ADDITION AL TABLETS DAILY IF NEEDED -MAXIMUM OF 6 TABLETS PER DAY Nov 09, 2022 360 Nov 10, 2023 [id number] E Mar 27, 2023 [facility]ES [facility]ES [facility] ORAL DISCONT INUED 11/10/2023 [id number] 3 ALICJA CRUZ 2022 360 [place] [facility] BUSPIRONE HCL 10MG TAB BUSPIRON E HCL 10MG TAB Disconti nued TAKE TWO TABLETS BY MOUTH TWICE A DAY FOR ANXIETY -MAY ALSO TAKE TWO ADDITION AL TABLETS DAILY IF NEEDED -MAXIMUM OF 6 TABLETS PER DAY Jul 04, 2022 360 Jul 05, 2023 [id number] D Sep 23, 2022 INES LINARES RA [place] [facility] ORAL DISCONT INUED 07/05/2023 [id number] 3 ALICJA CRUZ 2022 360 [place] [facility] CARVEDILOL 12.5MG TAB CARVEDIL OL 12.5MG TAB Active TAKE ONE TABLET BY MOUTH TWICE A DAY FOR HEART FAILURE FOR HEART FAILURE Mar 22, 2023 180 Mar 22, 2024 [id number] A Aug 04, 2023 Z[place]TAN SYED [place] [facility] ORAL [facility]IVE 03/22/2024 [id number] ZOLTAN SYED 2022 180 [place] [facility] CARVEDILOL 12.5MG TAB CARVEDIL OL 12.5MG TAB Disconti nued TAKE ONE TABLET BY MOUTH TWICE A DAY FOR HEART FAILURE .FULL TAB, NOTE DOSE INCREASE FOR HEART FAILURE Mar 25, 2022 180 Mar 26, 2023 [id number] Dec 13, 2022 PIKEMARCIE Arnold [facility] ORAL DISCONT INUED 03/26/2023 [id number] MARCIE PIEK [place] 2021 180 [facility] CHOLECALCIF RINA 25MCG (1,000UNIT) TAB CHOLECAL CIFEROL 25MCG (1,000UN IT) TAB Active TAKE ONE TABLET BY MOUTH EVERY MORNING Mar 22, 2023 100 Mar 22, 2024 [id number] B May 16, 2023 Z[facility]AN SYED [facility] ORAL ACTIVE 03/22/2024 [id number] 4 ZOLTAN SYED 2023 100 [facility] CHOLECALCIF RINA 25MCG (1,000UNIT) TAB CHOLECAL CIFEROL 25MCG (1,000UN IT) TAB Disconti nued TAKE ONE TABLET BY MOUTH EVERY MORNING Mar 25, 2022 100 Mar 26, 2023 [id number] A Feb 25, 2023 PIKE ,[facility] ORAL DISCONT INUED 03/26/2023 [id number] PIKE, MARCIE A 2022 100 [facility] FISH OIL 1000MG (500MG DHA/EPA) CAP,ORAL FISH OIL 1000MG (500MG DHA/EPA) CAP,ORAL Non-VA TAKE 1 CAPSULE BY MOUTH TWICE A DAY Mar 26, 2009 Non-VA Document ed by: EVERETT POWELL Document ed at: [facility]AL [facility]IVE [place] 2008 [facility] FUROSEMIDE 40MG TAB FUROSEMI DE 40MG TAB Active TAKE TWO TABLETS BY MOUTH TWICE A DAY Mar 22, 2023 360 Mar 22, 2024 [id number] Mar 23, 2023 [facility]AN SYED [facility] 03/22/2024 [id number] ZOLTAN SYED 2022 360 [facility] FUROSEMIDE 40MG TAB FUROSEMI DE 40MG TAB Disconti nued TAKE TWO TABLETS BY MOUTH TWICE A DAY Mar 25, 2022 360 Mar 26, 2023 [id number] Dec 07, 2022 MARCIE PIKE [facility] ORAL DISCONT INUED 03/26/2023 [id number] 3 MARCIE PIKE 2021 360 [facility] LOSARTAN 50MG TAB LOSARTAN 50MG TAB TAKE ONE TABLET BY MOUTH EVERY DAY FOR BLOOD PRESSURE Dec 24, 2021 90 Dec 25, 2022 [id number] B Sep 14, 2022 MARCIE PIKE [facility] ORAL 12/25/2022 [id number] MARCIE PIKE 2021 90 [facility] MULTIVITAMI N/MINERALS SENIOR FORMULA TAB MULTIVIT PAZ/MIN ERALS SENIOR FORMULA TAB Non-VA TAKE ONE TABLET BY MOUTH EVERY DAY Mar 20, 2007 Non-VA Document ed by: RITESH KELLY Document ed at: [facility] ORAL ACTIVE Diana KELLY [facility] 2006 [facility] MULTIVITAMI N/OPTH AREDS SINGLE STRENGTH TAB MULTIVIT PAZ/OPT H AREDS SINGLE STRENGTH TAB Non-VA TAKE TWO TABLETS BY MOUTH TWICE A DAY Oct 08, 2007 Non-VA Document ed by: Arsh MOJICA Document ed at: [facility] ORAL ACTIVE [place] 2007 [facility] OLODATEROL 2.5MCG/TIOT ROPIUM 2.5MCG/ACTU AT INHL,ORAL,6 0D,4GM OLODATER OL 2.5MCG/T IOTROPIU M 2.5MCG/A CTUAT INHL,ORA L,60D,4G M Active INHALE 2 PUFFS BY INHALATI ON EVERY DAY TO PREVENT TROUBLE BREATHIN G Mar 22, 2023 1 Mar 22, 2024 [id number] Jul 26, 2023 ZOLTAN SYED [facility] RESPIR ATORY (INHAL ATION) ACTIVE 03/22/2024 [id number] ZOLTAN SYED 2022 1 [facility] OLODATEROL 2.5MCG/TIOT ROPIUM 2.5MCG/ACTU AT INHL,ORAL,6 0D,4GM OLODATER OL 2.5MCG/T IOTROPIU M 2.5MCG/A CTUAT INHL,ORA L,60D,4G M Disconti nued INHALE 2 PUFFS BY INHALATI ON EVERY DAY TO PREVENT TROUBLE BREATHIN G Mar 25, 2022 1 Mar 26, 2023 [id number] B Dec 07, 2022 MARCIE PIKE [facility] RESPIR ATORY (INHAL ATION) DISCONT INUED 03/26/2023 [id number] 3 MARCIE PIKE 2021 1 [facility] OMEPRAZOLE 20MG CAP,EC OMEPRAZO LE 20MG CAP,EC Active TAKE ONE CAPSULE BY MOUTH EVERY DAY TO DECREASE STOMACH ACID -TAKE ON AN EMPTY STOMACH, AT LEAST 30 MINUTES BEFORE A MEAL Mar 22, 2023 90 Mar 22, 2024 [id number] Jul 26, 2023 ZOLTAN SYED [facility] ORAL ACTIVE 03/22/2024 [id number] ZOLTAN SYED 2023 90 [facility] OMEPRAZOLE 20MG CAP,EC OMEPRAZO LE 20MG CAP,EC Disconti nued TAKE ONE CAPSULE BY MOUTH EVERY DAY TO DECREASE STOMACH ACID -TAKE ON AN EMPTY STOMACH, AT LEAST 30 MINUTES BEFORE A MEAL Mar 25, 2022 90 Mar 26, 2023 [id number] Feb 01, 2023 MARCIE PIKE [facility] ORAL DISCONT INUED 03/26/2023 [id number] MARCIE PIKE 2022 90 [facility] PRAVASTATIN NA 10MG TAB PRAVASTA TIN NA 10MG TAB Active TAKE ONE TABLET BY MOUTH EVERY DAY FOR CHOLESTE ROL FOR CHOLESTE ROL Mar 22, 2023 90 Mar 22, 2024 [id number] Mar 23, 2023 ZOLTAN SYED [facility] ORAL ACTIVE 03/22/2024 [id number] ZOLTAN SYED 2022 90 [facility] PRAVASTATIN NA 10MG TAB PRAVASTA TIN NA 10MG TAB Disconti nued TAKE ONE TABLET BY MOUTH EVERY DAY CHOLESTE ROL FOR CHOLESTE ROL CHOLESTE ROL Mar 25, 2022 90 Mar 26, 2023 [id number] Jul 30, 2022 MARCIE PIKE [facility] ORAL DISCONT INUED 03/26/2023 [id number] MARCIE PIKE 2022 90 [facility] PRIMIDONE 50MG TAB PRIMIDON E 50MG TAB Active TAKE TWO TABLETS BY MOUTH EVERY DAY FOR TREMOR FOR TREMOR Dec 16, 2022 180 Dec 17, 2023 [id number] Sep 11, 2023 ZOLTAN SYED [facility] ORAL ACTIVE 12/17/2023 [id number] ZOLTAN SYED 2022 180 [facility] PRIMIDONE 50MG TAB PRIMIDON E 50MG TAB Disconti nued TAKE ONE AND ONE-HALF TABLETS BY MOUTH EVERY DAY FOR TREMOR FOR TREMOR August 17, 2022 135 August 18, 2023 [id number] Dec 07, 2022 ZOLTAN SYED [facility] ORAL DISCONT INUED (EDIT) 08/18/2023 [id number] ZOLTAN SYED 2022 135 [facility] PRIMIDONE 50MG TAB PRIMIDON E 50MG TAB Disconti nued TAKE ONE TABLET BY MOUTH EVERY MORNING Mar 25, 2022 90 Mar 26, 2023 [id number] A Jul 27, 2022 MARCIE PIKE [facility] ORAL DISCONT INUED 03/26/2023 [id number] MARCIE PIKE 2022 90 [facility] SPIRONOLACT ONE 25MG TAB SPIRONOL ACTONE 25MG TAB Active TAKE ONE TABLET BY MOUTH EVERY MORNING Mar 22, 2023 90 Mar 22, 2024 [id number] B Oct 14, 2023 ZOLTAN SYED [facility] ORAL ACTIVE 03/22/2024 [id number] ZOLTAN SYED 2023 90 [facility] SPIRONOLACT ONE 25MG TAB SPIRONOL ACTONE 25MG TAB Disconti nued TAKE ONE TABLET BY MOUTH EVERY MORNING Mar 25, 2022 90 Mar 26, 2023 [id number] A Feb 01, 2023 MARCIE PIKE [facility] ORAL DISCONT INUED 03/26/2023 [id number] MARCIE PIKE 2022 90 [facility] VANICREAM VANICREA M Active APPLY A THIN LAYER TO DRY SKIN TOPICALL Y TWICE A DAY XEROSIS TO MOISTURI ZE XEROSIS Mar 22, 2023 454 Mar 22, 2024 [id number] A Mar 23, 2023 ZOLTAN SYED [facility] TOPICA L ACTIVE 03/22/2024 [id number] ZOLTAN SYED 2022 454 [facility] WARFARIN NA 5MG TAB WARFARIN NA 5MG TAB Non-VA TAKE ONE TABLET BY MOUTH EVERY DAY Feb 23, 2009 Non-VA Document ed by: RITESH KELLY Document ed at: [facility] ORAL ACTIVE Diana KELLY [facility] 2008 [facility] ZOLPIDEM TARTRATE 10MG TAB ZOLPIDEM TARTRATE 10MG TAB Active TAKE ONE TABLET BY MOUTH AT BEDTIME NEEDED FOR SLEEP FOR SLEEP Sep 13, 2023 30 Mar 15, 2024 [id number] U Sep 23, 2023 INES LINARES RA [facility] ORAL ACTIVE 03/15/2024 [id number] 4 ALICJA CRUZ 2023 30 [facility] ZOLPIDEM TARTRATE 10MG TAB ZOLPIDEM TARTRATE 10MG TAB Disconti nued TAKE ONE TABLET BY MOUTH AT BEDTIME NEEDED FOR SLEEP FOR SLEEP Jul 05, 2023 30 Jan 05, 2024 [id number] T August 24, 2023 INES LINARES RA [facility] ORAL DISCONT INUED 01/05/2024 [id number] ALICJA CRUZ 2023 30 [place] [facility] [facility] ZOLPIDEM TARTRATE 10MG TAB ZOLPIDEM TARTRATE 10MG TAB Disconti nued TAKE ONE TABLET BY MOUTH AT BEDTIME NEEDED FOR SLEEP FOR SLEEP Mar 08, 2023 30 Sep 10, 2023 [id number] S May 12, 2023 INES LINARES RA [place] [facility] [facility] ORAL DISCONT INUED 09/10/2023 [id number] ALICJA CRUZ P 2022 30 [place] [facility] [facility] ZOLPIDEM TARTRATE 10MG TAB ZOLPIDEM TARTRATE 10MG TAB Disconti nued TAKE ONE TABLET BY MOUTH AT BEDTIME NEEDED FOR SLEEP FOR SLEEP Feb 21, 2023August 24, 2023 [id number] R Feb 25, 2023 INES LINARES RA [place] [facility] ORAL DISCONT INUED 08/24/2023 [id number] ALICJA CRUZ P 2022 30 [place] [facility] [facility] ZOLPIDEM TARTRATE 10MG TAB ZOLPIDEM TARTRATE 10MG TAB Disconti nued TAKE ONE TABLET BY MOUTH AT BEDTIME NEEDED FOR SLEEP FOR SLEEP Nov 09, 2022 30 May 12, 2023 [id number] Q Jan 26, 2023 INES LINARES RA [place] [facility] ORAL DISCONT INUED 05/12/2023 [id number] ALICJA CRUZ P 2022 30 [place] [facility] ZOLPIDEM TARTRATE 10MG TAB ZOLPIDEM TARTRATE 10MG TAB Disconti nued TAKE ONE TABLET BY MOUTH AT BEDTIME NEEDED FOR SLEEP FOR SLEEP Oct 21, 2022 30 Nov 20, 2022 [id number] P Oct 23, 2022 BEN PAINTER T [place] [facility] ORAL DISCONT INUED 11/20/2022 [id number] MADELYN PAINTER T 2022 30 [place] [facility] ZOLPIDEM TARTRATE 10MG TAB ZOLPIDEM TARTRATE 10MG TAB Disconti nued TAKE ONE TABLET BY MOUTH AT BEDTIME NEEDED FOR SLEEP FOR SLEEP Jul 04, 2022 30 Jan 04, 2023 [id number] O Oct 03, 2022 INES LINARES RA [facility] ORAL DISCONT INUED 01/04/2023 [id number] ALICJA CRUZ 2022 30 [facility] Allergies, Adverse Reactions, Alerts Combined list of allergies from Department of Defense and Veterans Affairs facilities. It does not include entries that were removed or entered in error. Substance Category Reaction Severity Reaction type Status Date Reported Comments Source LISINOPRIL Propensity to adverse reactions to drug (finding) active 1 [facility] Immunizations Combined list of available immunizations from the Department of Defense and Veterans Affairs facilities. Immunization Series Date Given Administered By Site Reaction Lot Number CVX Code Drug Psychiatric Nursing Aide Status Comments Source COVID-19 (MODERNA), MRNA, LNP-S, PF, 50 MCG/0.5 ML (AGES 12+ YEARS) [address] [facility] INFLUENZA VACCINE, QUADRIVALENT, ADJUVANTED [address] [facility] COVID-19 (PFIZER), MRNA, LNP-S, BIVALENT BOOSTER, PF, 30 MCG/0.3 ML DOSE [address] [facility] INFLUENZA VACCINE, QUADRIVALENT, ADJUVANTED [address] [facility] INFLUENZA, UNSPECIFIED FORMULATION [address] [facility] COVID-19 (PFIZER), MRNA, LNP-S, PF, 30 MCG/0.3 ML DOSE, ADE-SUCROSE (AGES 12+ YEARS) [address] [facility] TDAP [address] [facility] COVID-19 (PFIZER), MRNA, LNP-S, PF, 30 MCG/0.3 ML DOSE [address] [facility] INFLUENZA VACCINE, QUADRIVALENT, ADJUVANTED [address] [facility] INFLUENZA, UNSPECIFIED FORMULATION [address] [facility] COVID-19 (PFIZER), MRNA, LNP-S, PF, 30 MCG/0.3 ML DOSE 2 2020 208 complet ed PFR; [id number]; 1 [facility] COVID-19 (Moov cc.), MRNA, LNP-S, PF, 30 MCG/0.3 ML DOSE 1 2020 208 complet ed PFR; [id number]; 1 [facility] INFLUENZA VACCINE, QUADRIVALENT, ADJUVANTED 2019 205 complet ed [facility] INFLUENZA, SEASONAL, INJECTABLE 2018 141 complet ed [facility] INFLUENZA, TRIVALENT, ADJUVANTED 2018 168 complet ed [facility] ZOSTER RECOMBINANT 2 2018 187 complet ed [facility] ZOSTER RECOMBINANT 1 2018 187 complet ed [facility] INFLUENZA, TRIVALENT, ADJUVANTED 2017 168 complet ed [facility] INFLUENZA, HIGH DOSE SEASONAL 2016 135 complet ed [facility] INFLUENZA, TRIVALENT, ADJUVANTED 2016 168 complet ed [facility] INFLUENZA, HIGH DOSE SEASONAL 2015 135 complet ed [facility] INFLUENZA, HIGH DOSE SEASONAL 2015 135 complet ed [facility] PNEUMOCOCCAL CONJUGATE PCV 13 2015 133 complet ed [facility] [id number] exp 11/24 [facility] INFLUENZA, HIGH DOSE SEASONAL 2014 135 complet ed [facility] INFLUENZA, SEASONAL, INJECTABLE 2014 141 complet ed [facility] INFLUENZA, HIGH DOSE SEASONAL 2013 135 complet ed [facility] INFLUENZA, UNSPECIFIED FORMULATION 2013 88 complet ed [facility] INFLUENZA, SEASONAL, INJECTABLE 2012 141 complet ed [facility] INFLUENZA, UNSPECIFIED FORMULATION 2012 88 complet ed [facility] PNEUMOCOCCAL, UNSPECIFIED FORMULATION 2012 109 complet ed [employer], Lot-[id number], Exp-07/15 [facility] PNEUMOCOCCAL POLYSACCHARID E [id number] 2012 33 complet ed [facility] INFLUENZA, SEASONAL, INJECTABLE 2011 141 complet ed [facility] INFLUENZA, UNSPECIFIED FORMULATION 2011 88 complet ed [facility] TDAP 2011 115 complet ed [employer] navarro,AC5 [id number] 05/04/12 [facility] INFLUENZA, SEASONAL, INJECTABLE, PRESERVATIVE FREE 2010 140 complet ed [facility] INFLUENZA, UNSPECIFIED FORMULATION 2010 88 complet ed [facility] INFLUENZA, UNSPECIFIED FORMULATION 2009 88 complet ed [facility] NOVEL INFLUENZA-H1N 1-09, ALL FORMULATIONS 2009 128 complet ed [facility] NOVEL INFLUENZA-H1N 1-09, ALL FORMULATIONS 2008 128 complet ed [facility] INFLUENZA, UNSPECIFIED FORMULATION 2008 88 complet ed [facility] ZOSTER LIVE 2008 121 complet ed [facility] HEP B, ADULT 2008 43 complet ed [facility] HEP B, ADULT 2007 43 complet ed [facility] INFLUENZA, SEASONAL, INJECTABLE 2007 141 complet ed [facility] INFLUENZA, UNSPECIFIED FORMULATION 2007 88 complet ed [facility] HEP B, ADULT 2007 43 complet ed [facility] TDAP 2007 115 complet ed [facility] ZOSTER LIVE 2007 121 complet ed [facility] INFLUENZA (HISTORICAL) 2006 88 complet ed [facility] INFLUENZA, SEASONAL, INJECTABLE 2006 141 complet ed [facility] INFLUENZA (HISTORICAL) 2005 88 complet ed [facility] INFLUENZA, SEASONAL, INJECTABLE 2005 141 complet ed [facility] INFLUENZA, SEASONAL, INJECTABLE 2004 141 complet ed [facility] TD(ADULT) UNSPECIFIED FORMULATION 2004 NONE 139 complet ed [facility] INFLUENZA, UNSPECIFIED FORMULATION 2003 88 complet ed [facility] PNEUMOCOCCAL, UNSPECIFIED FORMULATION 2003 109 complet ed [facility] INFLUENZA, SEASONAL, INJECTABLE [address] [facility] INFLUENZA, UNSPECIFIED FORMULATION 1998 STAFF,NURSE [address] [facility] INFLUENZA (HISTORICAL) 1997 STAFF,NURSE [address] [facility] Results Combined list of recent chemistry, hematology and other laboratory results from Department of Defense and Veterans Affairs, ranging from 15 months to all on record, depending upon the facility. Order Name Results Value Reference Range Date Interpretation Specimen Comments Source HEMOGLOBI N A1C HEMOGLOBIN A1C/HEMOGLO BIN.TOTAL IN BLOOD 4.9 4.0 - 6.0 03/22 Specimen Type: BLOOD Comment: Values obtained from A1C measurement s can vary. For typical A1C assays, a reported value of 7.0 could actually be between 6.7 and 7.3 if measured by a reference method. A reported value of 9.0 could actually be between 8.7 and 9.3. Ref: [email or web address]/[place] Pdata.asp Ordering Provider: ME WINSTON PIKE Report Released Date/Time: Mar 25, 2022 01:22 PM Reporting Lab: [facility] [id number] Performing Lab: [facility] [id number] [place] [facility] LIPID PANEL,NON -FASTING CHOLESTEROL [MASS/VOLUM E] IN SERUM OR PLASMA 112 mg/dL <199 - 199 03/22 Specimen Type: PLASMA No comment entered. Ordering Provider: ME WINSTON PIKE Report Released Date/Time: Mar 25, 2022 01:22 PM Reporting Lab: [facility] [address] Performing Lab: [facility] [address] [place] [facility] LIPID PANEL,NON -FASTING CHOLESTEROL IN HDL [MASS/VOLUM E] IN SERUM OR PLASMA 50 mg/dL 40 03/22 Specimen Type: PLASMA No comment entered. Ordering Provider: ME WINSTON PIKE Report Released Date/Time: Mar 25, 2022 01:22 PM Reporting Lab: [facility] [address] Performing Lab: [facility] [address] [place] [facility] LIPID PANEL,NON -FASTING CHOLESTEROL IN LDL [MASS/VOLUM E] IN SERUM OR PLASMA BY CALCULATION 42 mg/dL <99 - 99 03/22 Specimen Type: PLASMA No comment entered. Ordering Provider: ME WINSTON PIKE Report Released Date/Time: Mar 25, 2022 01:22 PM Reporting Lab: [facility] [address] Performing Lab: [facility] [address] [place] [facility] LIPID PANEL,NON -FASTING CHOLESTEROL IN VLDL [MASS/VOLUM E] IN SERUM OR PLASMA BY CALCULATION 20 mg/dL <29 - 29 03/22 Specimen Type: PLASMA No comment entered. Ordering Provider: ME WINSTON PIKE Report Released Date/Time: Mar 25, 2022 01:22 PM Reporting Lab: [facility] [address] Performing Lab: [facility] [address] [place] [facility] LIPID PANEL,NON -FASTING CHOLESTEROL NON HDL [MASS/VOLUM E] IN SERUM OR PLASMA 62 mg/dL <129 - 129 03/22 Specimen Type: PLASMA No comment entered. Ordering Provider: ME WINSTON PIKE Report Released Date/Time: Mar 25, 2022 01:22 PM Reporting Lab: [facility] [address] Performing Lab: [facility] [address] [place] [facility] LIPID PANEL,NON -FASTING TRIGLYCERID E [MASS/VOLUM E] IN SERUM OR PLASMA 99 mg/dL <149 - 149 03/22 Specimen Type: PLASMA No comment entered. Ordering Provider: ME WINSTON PIKE Report Released Date/Time: Mar 25, 2022 01:22 PM Reporting Lab: [facility] [address] Performing Lab: [facility] [address] [place] [facility] BASIC METABOLIC PANEL+MG CREATININE [MASS/VOLUM E] IN SERUM OR PLASMA 1.2 mg/dL 0.7 - 1.2 03/22 Specimen Type: PLASMA No comment entered. Ordering Provider: ME WINSTON PIKE Report Released Date/Time: Mar 25, 2022 01:22 PM Reporting Lab: [facility] [address] Performing Lab: [facility] [address] [place] [facility] BASIC METABOLIC PANEL+MG UREA NITROGEN [MASS/VOLUM E] IN SERUM OR PLASMA 15 mg/dL 8 - 26 03/22 Specimen Type: PLASMA No comment entered. Ordering Provider: ME WINSTON PIKE Report Released Date/Time: Mar 25, 2022 01:22 PM Reporting Lab: [facility] [address] Performing Lab: [facility] [address] [place] [facility] BASIC METABOLIC PANEL+MG GLUCOSE [MASS/VOLUM E] IN SERUM OR PLASMA 91 mg/dL 70 - 100 03/22 Specimen Type: PLASMA No comment entered. Ordering Provider: ME WINSTON PIKE Report Released Date/Time: Mar 25, 2022 01:22 PM Reporting Lab: [facility] [address] Performing Lab: [facility] [address] [place] [facility] BASIC METABOLIC PANEL+MG SODIUM [MOLES/VOLU ME] IN SERUM OR PLASMA 147 mmol/L 136 - 145 03/22 H Specimen Type: PLASMA No comment entered. Ordering Provider: ME WINSTON PIKE Report Released Date/Time: Mar 25, 2022 01:22 PM Reporting Lab: [facility] [address] Performing Lab: [facility] [address] [place] [facility] BASIC METABOLIC PANEL+MG POTASSIUM [MOLES/VOLU ME] IN SERUM OR PLASMA 2.8 mmol/L 3.5 - 5.1 03/22 L Specimen Type: PLASMA No comment entered. Ordering Provider: ME WINSTON PIKE Report Released Date/Time: Mar 25, 2022 01:22 PM Reporting Lab: [facility] [address] Performing Lab: [facility] [address] [place] [facility] BASIC METABOLIC PANEL+MG CHLORIDE [MOLES/VOLU ME] IN SERUM OR PLASMA 107 mmol/L 98 - 107 03/22 Specimen Type: PLASMA No comment entered. Ordering Provider: ME WINSTON PIKE Report Released Date/Time: Mar 25, 2022 01:22 PM Reporting Lab: [facility] [address] Performing Lab: [facility] [address] [place] [facility] BASIC METABOLIC PANEL+MG CARBON DIOXIDE, TOTAL [MOLES/VOLU ME] IN SERUM OR PLASMA 31 mmol/L 22 - 29 03/22 H Specimen Type: PLASMA No comment entered. Ordering Provider: ME WINSTON PIKE Report Released Date/Time: Mar 25, 2022 01:22 PM Reporting Lab: [facility] [address] Performing Lab: [facility] [address] [place] [facility] BASIC METABOLIC PANEL+MG CALCIUM [MASS/VOLUM E] IN SERUM OR PLASMA 9.7 mg/dL 8.4 - 10.2 03/22 Specimen Type: PLASMA No comment entered. Ordering Provider: ME WINSTON PIKE Report Released Date/Time: Mar 25, 2022 01:22 PM Reporting Lab: [facility] [address] Performing Lab: [facility] [address] [place] [facility] BASIC METABOLIC PANEL+MG MAGNESIUM [MASS/VOLUM E] IN SERUM OR PLASMA 2.1 mg/dL 1.6 - 2.6 03/22 Specimen Type: PLASMA No comment entered. Ordering Provider: ME WINSTON PIKE Report Released Date/Time: Mar 25, 2022 01:22 PM Reporting Lab: [facility] [address] Performing Lab: [facility] [address] [place] [facility] BASIC METABOLIC PANEL+MG ANION GAP IN SERUM OR PLASMA 9 mmol/L 5 - 15 03/22 Specimen Type: PLASMA No comment entered. Ordering Provider: ME WINSTON PIKE Report Released Date/Time: Mar 25, 2022 01:22 PM Reporting Lab: [facility] [address] Performing Lab: [facility] [address] [place] [facility] BASIC METABOLIC PANEL+MG GLOMERULAR FILTRATION RATE/1.73 SQ M.PREDICTED [VOLUME RATE/AREA] IN SERUM, PLASMA OR BLOOD BY CREATININE- BASED FORMULA (CKD-EPI 2020) 63 60 03/22 Specimen Type: PLASMA No comment entered. Ordering Provider: ME WINSTON PIKE Report Released Date/Time: Mar 25, 2022 01:22 PM Reporting Lab: [facility] [address] Performing Lab: [facility] [address] [place] [facility] HEMOGLOBI N A1C HEMOGLOBIN A1C/HEMOGLO BIN.TOTAL IN BLOOD 5.1 4.0 - 6.0 03/25 Specimen Type: BLOOD Comment: Values obtained from A1C measurement s can vary. For typical A1C assays, a reported value of 7.0 could actually be between 6.7 and 7.3 if measured by a reference method. A reported value of 9.0 could actually be between 8.7 and 9.3. Ref: http://www. ngsp.org/[place] Pdata.asp Ordering Provider: ME WINSTON PIKE Report Released Date/Time: Mar 18, 2021 04:39 PM Reporting Lab: [facility] [address] Performing Lab: [facility] [address] [place] [facility] LIPID PANEL,NON -FASTING CHOLESTEROL [MASS/VOLUM E] IN SERUM OR PLASMA 136 mg/dL <199 - 199 03/25 Specimen Type: PLASMA No comment entered. Ordering Provider: ME WINSTON PIKE Report Released Date/Time: Mar 18, 2021 04:39 PM Reporting Lab: [facility] [address] Performing Lab: [facility] [address] [place] [facility] LIPID PANEL,NON -FASTING CHOLESTEROL IN HDL [MASS/VOLUM E] IN SERUM OR PLASMA 51 mg/dL 40 03/25 Specimen Type: PLASMA No comment entered. Ordering Provider: ME WINSTON PIKE Report Released Date/Time: Mar 18, 2021 04:39 PM Reporting Lab: [facility] [address] Performing Lab: [facility] [address] [place] [facility] LIPID PANEL,NON -FASTING CHOLESTEROL IN LDL [MASS/VOLUM E] IN SERUM OR PLASMA BY CALCULATION 67 mg/dL <99 - 99 03/25 Specimen Type: PLASMA No comment entered. Ordering Provider: ME WINSTON PIKE Report Released Date/Time: Mar 18, 2021 04:39 PM Reporting Lab: [facility] [address] Performing Lab: [facility] [address] [place] [facility] LIPID PANEL,NON -FASTING CHOLESTEROL IN VLDL [MASS/VOLUM E] IN SERUM OR PLASMA BY CALCULATION 18 mg/dL <29 - 29 03/25 Specimen Type: PLASMA No comment entered. Ordering Provider: ME WINSTON PIKE Report Released Date/Time: Mar 18, 2021 04:39 PM Reporting Lab: [facility] [address] Performing Lab: [facility] [address] [place] [facility] LIPID PANEL,NON -FASTING CHOLESTEROL NON HDL [MASS/VOLUM E] IN SERUM OR PLASMA 85 mg/dL <129 - 129 03/25 Specimen Type: PLASMA No comment entered. Ordering Provider: ME WINSTON PIKE Report Released Date/Time: Mar 18, 2021 04:39 PM Reporting Lab: [facility] [address] Performing Lab: [facility] [address] [place] [facility] LIPID PANEL,NON -FASTING TRIGLYCERID E [MASS/VOLUM E] IN SERUM OR PLASMA 91 mg/dL <149 - 149 03/25 Specimen Type: PLASMA No comment entered. Ordering Provider: ME WINSTON PIKE Report Released Date/Time: Mar 18, 2021 04:39 PM Reporting Lab: [facility] [address] Performing Lab: [facility] [address] [place] [facility] BASIC METABOLIC PANEL+MG CREATININE [MASS/VOLUM E] IN SERUM OR PLASMA 1.2 mg/dL 0.7 - 1.2 03/25 Specimen Type: PLASMA No comment entered. Ordering Provider: ME WINSTON PIKE Report Released Date/Time: Mar 18, 2021 04:39 PM Reporting Lab: [facility] [address] Performing Lab: [facility] [address] [place] [facility] BASIC METABOLIC PANEL+MG UREA NITROGEN [MASS/VOLUM E] IN SERUM OR PLASMA 22 mg/dL 8 - 26 03/25 Specimen Type: PLASMA No comment entered. Ordering Provider: ME WINSTON PIKE Report Released Date/Time: Mar 18, 2021 04:39 PM Reporting Lab: [facility] [address] Performing Lab: [facility] [address] [place] [facility] BASIC METABOLIC PANEL+MG GLUCOSE [MASS/VOLUM E] IN SERUM OR PLASMA 102 mg/dL 70 - 100 03/25 H Specimen Type: PLASMA No comment entered. Ordering Provider: ME WINSTON PIKE Report Released Date/Time: Mar 18, 2021 04:39 PM Reporting Lab: [facility] [address] Performing Lab: [facility] [address] [place] [facility] BASIC METABOLIC PANEL+MG SODIUM [MOLES/VOLU ME] IN SERUM OR PLASMA 143 mmol/L 136 - 145 03/25 Specimen Type: PLASMA No comment entered. Ordering Provider: ME WINSTON PIKE Report Released Date/Time: Mar 18, 2021 04:39 PM Reporting Lab: [facility] [address] Performing Lab: [facility] [address] [place] [facility] BASIC METABOLIC PANEL+MG POTASSIUM [MOLES/VOLU ME] IN SERUM OR PLASMA 4.1 mmol/L 3.5 - 5.1 03/25 Specimen Type: PLASMA No comment entered. Ordering Provider: ME WINSTON PIKE Report Released Date/Time: Mar 18, 2021 04:39 PM Reporting Lab: [facility] [address] Performing Lab: [facility] [address] [place] [facility] BASIC METABOLIC PANEL+MG CHLORIDE [MOLES/VOLU ME] IN SERUM OR PLASMA 106 mmol/L 98 - 107 03/25 Specimen Type: PLASMA No comment entered. Ordering Provider: ME WINSTON PIKE Report Released Date/Time: Mar 18, 2021 04:39 PM Reporting Lab: [facility] [address] Performing Lab: [facility] [address] [place] [facility] BASIC METABOLIC PANEL+MG CARBON DIOXIDE, TOTAL [MOLES/VOLU ME] IN SERUM OR PLASMA 28 mmol/L 22 - 29 03/25 Specimen Type: PLASMA No comment entered. Ordering Provider: ME WINSTON PIKE Report Released Date/Time: Mar 18, 2021 04:39 PM Reporting Lab: [facility] [address] Performing Lab: [facility] [address] [place] [facility] BASIC METABOLIC PANEL+MG CALCIUM [MASS/VOLUM E] IN SERUM OR PLASMA 9.3 mg/dL 8.4 - 10.2 03/25 Specimen Type: PLASMA No comment entered. Ordering Provider: ME WINSTON PIKE Report Released Date/Time: Mar 18, 2021 04:39 PM Reporting Lab: [facility] [address] Performing Lab: [facility] [address] [place] [facility] BASIC METABOLIC PANEL+MG MAGNESIUM [MASS/VOLUM E] IN SERUM OR PLASMA 2.0 mg/dL 1.6 - 2.6 03/25 Specimen Type: PLASMA No comment entered. Ordering Provider: ME WINSTON PIKE Report Released Date/Time: Mar 18, 2021 04:39 PM Reporting Lab: [facility] [address] Performing Lab: [facility] [address] [place] [facility] BASIC METABOLIC PANEL+MG ANION GAP IN SERUM OR PLASMA 9 mmol/L 5 - 15 03/25 Specimen Type: PLASMA No comment entered. Ordering Provider: ME WINSTON PIKE Report Released Date/Time: Mar 18, 2021 04:39 PM Reporting Lab: [facility] [address] Performing Lab: [facility] [address] [place] [facility] BASIC METABOLIC PANEL+MG GLOMERULAR FILTRATION RATE/1.73 SQ M.PREDICTED [VOLUME RATE/AREA] IN SERUM, PLASMA OR BLOOD BY CREATININE- BASED FORMULA (CKD-EPI) 63 60 03/25 Specimen Type: PLASMA No comment entered. Ordering Provider: ME WINSTON PIKE Report Released Date/Time: Mar 18, 2021 04:39 PM Reporting Lab: [facility] [address] Performing Lab: [facility] [address] [facility] Vital Signs Combined list of inpatient and outpatient Vital Signs from Department of Defense and Veterans Affairs, ranging from 12 months to all on record, depending upon the facility. Vital Sign Value Date Comments Source Encounters Combined list of: 1) Encounters from Department of Veterans Affairs facilities going back up to thelast 18 months. 2) Encounters from the Department of Defense facilities going back up to 280 months. Location Location Details Encounter Type Encounter Number Reason For Visit Attending Provider ADM Date DC Date Status Disposition Source [facility] PRO PHONE CALL 5-10 MIN [id number] Diagnos is: ICD-10- CM I12.9 Hyperte nsive chronic kidney disease w stg 1-4/uns p chr kdny
SHADES,MAR TY W 04/21 [facility] HC PRO PHONE CALL 11-20 MIN [id number] Diagnos is: ICD-10- CM I12.9 Hyperte nsive chronic kidney disease w stg 1-4/uns p chr kdny
SHADES,MAR TY W 05/09 [facility] Outpatient Encounter [id number] SA XIOMARA RA R 05/10 [facility] ORTHC/PROS TC MGMT SBSQ ENC [id number] Diagnos is: ICD-10- CM R60.9 Edema, unspeci fied
BETH MARTIN 05/13 [facility] PSYTX W PT 45 MINUTES [id number] Diagnos is: ICD-10- CM F43.12 Post-tr aumatic stress disorde r, chronic
Keith HILL 06/24 [facility] OFFICE O/P EST SF 10-19 MIN [id number] Diagnos is: ICD-10- CM F43.12 Post-tr aumatic stress disorde r, chronic
ALICJA ESPINO P 07/04 [facility] REPLACE SEMI PREC ATTACH [id number] Diagnos is: ICD-10- CM K08.131 Complet e loss of teeth due to caries, class I
DIYA LUX RY E 07/12 [facility] Outpatient Encounter [id number] Diagnos is: ICD-10- CM G47.33 Obstruc tive sleep apnea (adult) (pediat cj)
ALICIA PARKS AHAAlejandro 07/13 [facility] Outpatient Encounter [id number] 08/01 [facility] Outpatient Encounter [id number] 08/17 [facility] PSYTX W PT 45 MINUTES [id number] Diagnos is: ICD-10- CM F43.12 Post-tr aumatic stress disorde r, chronic
SERGIO,B TRISH 08/23 [facility] PSYTX W PT 45 MINUTES [id number] Diagnos is: ICD-10- CM F43.12 Post-tr aumatic stress disorde r, chronic
SERGIO,B TRISH 10/26 [facility] Outpatient Encounter [id number] 11/01 [facility] OFFICE O/P EST SF 10-19 MIN [id number] Diagnos is: ICD-10- CM F43.12 Post-tr aumatic stress disorde r, chronic
JAYASEKERA ,ALICJA P 11/09 [place] [facility] [place] [facility] Outpatient Encounter [id number] 12/13 [place] [facility] PT EDUCATION NOC INDIVID [id number] Diagnos is: ICD-10- CM G47.30 Sleep apnea, unspeci fied
JOHNY YEPEZ 12/13 [place] [facility] [place] [facility] Outpatient Encounter [id number] 12/16 [place] [facility] [place] [facility] Outpatient Encounter [id number] 12/19 [place] [facility] [place] [facility] Outpatient Encounter [id number] CAMERONVONDA [facility] 12/21 [place] [facility] PSYTX W PT 45 MINUTES [id number] Diagnos is: ICD-10- CM F43.12 Post-tr aumatic stress disorde r, chronic
Keith HILL TRISH 01/09 [facility] Outpatient Encounter [id number] 01/[address] [place] [address] [facility] Outpatient Encounter [id number] 02/14 [place] [facility] OFFICE O/P EST LOW 20-29 MIN [id number] Diagnos is: ICD-10- CM F43.12 Post-tr aumatic stress disorde r, chronic
ALICJA ESPINO P 03/08 [place] [facility] PSYTX W PT 45 MINUTES [id number] Diagnos is: ICD-10- CM F43.12 Post-tr aumatic stress disorde r, chronic
Keith HILL TRISH 03/22 [facility] OFFICE O/P EST HI 40-54 MIN [id number] Diagnos is: ICD-10- CM I25.5 Ischemi c cardiom yopathy
YAHAIRAJez ALLEGRA H 03/22 [facility] PSYTX W PT 45 MINUTES [id number] Diagnos is: ICD-10- CM F43.12 Post-tr aumatic stress disorde r, chronic
SERGIO,B TRISH 05/17 [facility] OFFICE O/P EST SF 10 MIN [id number] Diagnos is: ICD-10- CM F43.12 Post-tr aumatic stress disorde r, chronic
ALICJA ESPINO P 07/04 [facility] REPLACE SEMI PREC ATTACH [id number] Diagnos is: ICD-10- CM K08.131 Complet e loss of teeth due to caries, class I
DIYA LUX RY E 07/11 [facility] PSYTX W PT 45 MINUTES [id number] Diagnos is: ICD-10- CM F43.12 Post-tr aumatic stress disorde r, chronic
SERGIO,B TRISH 07/11 [facility] HC PRO PHONE CALL 11-20 MIN [id number] Diagnos is: ICD-10- CM G47.30 Sleep apnea, unspeci fied
MARTHA ROUSE S 08/17 [facility] PSYTX W PT 45 MINUTES [id number] Diagnos is: ICD-10- CM F43.12 Post-tr aumatic stress disorde r, chronic
SERGIO,B TRISH 09/12 [facility] Social History Combined list of available smoking, tobacco, and other social history from Department of Defense and [facility] Affairs facilities. Social History Type Response Date Comment Sourc e Tobacco smoking status NHIS VA-TOBACCO QUIT 15 YRS OR MORE 03/22/2023 [facility] History of tobacco use VA-TOBACCO FORMER USER 03/22/2023 [facility] History of tobacco use VA-TOBACCO FORMER USER 03/25/2022 [facility] History of tobacco use VA-TOBACCO FORMER USER 03/18/2021 [facility] History of tobacco use VA-TOBACCO QUIT 1 5 YRS OR MORE 10/16/2018 [facility] History of tobacco use FORMER TOBACCO US ER 7Y OR GREATER 09/08/2017 [facility] History of tobacco use FORMER TOBACCO US ER 7Y OR GREATER 09/02/2016 [facility] History of tobacco use FORMER TOBACCO US ER 7Y OR GREATER 08/27/2015 [facility] History of tobacco use FORMER TOBACCO US ER 7Y OR GREATER 08/28/2014 [facility] History of tobacco use FORMER TOBACCO US ER 7Y OR GREATER 09/25/2013 [facility] History of tobacco use FORMER TOBACCO US ER 7Y OR GREATER 04/25/2006 [facility] Plan of Care List of future care activities from Department [facility] facilities. Additional future care activities may be listed in the Assessment and Plan section. Date/Time Care Activity Care Activity Detail Facili ty 11/01/2023 AMBULATORY - PSYCHIATRY AMBULATORY - [facility] 11/29/2023 AMBULATORY - PSYCHIATRY AMBULATORY - [facility] Advance Directives List of completed, amended, or rescinded Advance Directives on record at Department [facility] Affairs facilities. An actual copy of the Directive is not included. Date Advance Directive Provider Source 04/20/2004 ADVANCE DIRECTIVE BABITA DIGGS [facility]
--- OUTSIDE RECORDS SUMMARY | 2023-10-25 20:26 | XMS_ITS | Encounter Summary ---
Author Name [facility] [place] Organization [facility] [place] Address [address] [place] [address] Care Team Providers Care Rough Rounder Machine Name Role Phone ZOLTAN SYED Primary Care [...] Name Patient's Relationship to Policy Hawkins MEDICA [facility] (WNR) MEDICARE ADVANTAGE [facility] (WNR) Apr 10, 2021 [id number] [phone] KAT NAZARIO PATIENT MEDICARE (WNR) MEDICARE (M) PART A May 11, 1991 PART A [id number] [facility] [phone] KAT NAZARIO PATIENT MEDICARE (WNR) MEDICARE (M) PART B May 11, 1989 PART B [id number] [facility] [phone] KAT NAZARIODiana PATIENT Selected Encounter This section includes the information on record at [place] for the Encounter. Date/Time Encounter Type Encounter Description Reason Provider Source Mar 08, 2023 09:30 AM OFFICE O/P EST LOW 20-29 MIN [facility] ICD-10-CM F43.12 Post-traumatic stress disorder, chronic CHASE ESPINO IHEmeli Encounter Template Text not used by ME Assessments - Encounter Diagnoses This section includes the primary and secondary diagnoses documented for the Encounter. Date/Time Primary/Secondary Diagnosis Diagnosis Name Provider Source Mar 24, 2023 03:25 PM PRIMARY Post-traumatic stress disorder, chronic CHASE ESPINO [facility] Plan of Treatment: Future Appointments (+ 6 months) and Future Tests (+/- 45 days) The Plan of Treatment section includes future care activities for the patient from all [place] treatmentfacilities. This section includes future appointments and future orders which are active, pending or scheduled. Future Appointments This section includes appointments that were scheduled to occur 6 months from the date of the Encounter, up to a maximum of 20 appointments. The data comes from all [place] treatment facilities. Appointment Date/Time Appointment Type Appointme nt Facility Name Mar 22, 2023 01:45 PM [facility] NONE [facility] Mar 22, 2023 02:00 PM AMBULATORY - PSYCHIATRY [facility] Mar 22, 2023 03:00 PM [facility] May 17, 2023 10:00 AM AMBULATORY - PSYCHIATRY [facility] Jul 05, 2023 09:30 AM AMBULATORY - PSYCHIATRY [facility] Jul 12, 2023 02:00 PM AMBULATORY - SURGERY [facility] Jul 12, 2023 03:00 PM AMBULATORY - PSYCHIATRY [facility] Lab Results: +/- 30 days of the encounter This section includes the Chemistry and Hematology Lab Results on record with ME for the patient. Radiology Reports and Pathology Reports are provided separately, in subsequent sections. Lab Results This section contains the Chemistry/Hematology Results that were resulted 30 days before or 30 daysafter the date of the Encounter. Date/Time Source Result Type Result - Unit Interpretation Reference Range Comment Mar 22, 2023 01:45 PM [facility] HEMOGLOBIN A1C Specimen Type: BLOOD [...] Mar 25, 2022 01:22 PM Reporting Lab: [facility] [id number] Performing Lab: [facility] [id number] HEMOGLOBIN A1C 4.9 4.0-6.0 Mar 22, 2023 01:45 PM [facility] LIPID PANEL,NON-FASTING Specimen Type: PLASMA No comment entered. Ordering Provider: DUSTIN PIKE Report Released Date/Time: Mar 25, 2022 01:22 PM Reporting Lab: [facility] [id number] Performing Lab: [facility] [id number] CHOLESTEROL 112 mg/dL <199 .HDL 50 mg/dL >40 LDL CALCULATION 42 mg/dL <99 VLDL CALCULATION 20 mg/dL <29 NON HDL CHOLESTEROL 62 mg/dL <129 TRIG(NON FASTING) 99 mg/dL <149 Mar 22, 2023 01:45 PM [facility] BASIC METABOLIC PANEL+MG Specimen Type: PLASMA No comment entered. Ordering Provider: DUSTIN PIKE Report Released Date/Time: Mar 25, 2022 01:22 PM Reporting Lab: [facility] [id number] Performing Lab: [facility] [id number] CREATININE 1.2 mg/dL 0.7-1.2 UREA NITROGEN 15 mg/dL 8-26 GLUCOSE 91 mg/dL 70-100 SODIUM 147 mmol/L H 136-145 POTASSIUM 2.8 mmol/L L 3.5-5.1 CHLORIDE 107 mmol/L 98-107 CO2 31 mmol/L H 22-29 CALCIUM 9.7 mg/dL 8.4-10.2 MAGNESIUM 2.1 mg/dL 1.6-2.6 ANION GAP 9 mmol/L 5-15 .CREAT EGFR(CKD-EPI) 63 >60 Social History: Smoking Status (Most current) and Tobacco Use (All prior to encounter date) This section includes the most current, and the historical, smoking and tobacco- related health factors from the [place] facility where the Encounter took place. Current Smoking Status This section includes the most current smoking, or tobacco-related health factor, from the [place] facility where the Encounter took place. Date/Time Current Smoking Status Lamonte sauer Mar 25, 2022 12:45 PM VA-TOBACCO FORMER USER [facility] Tobacco Use History This section includes a history of the smoking, or tobacco-related health factors, that were collected on or before the date of the Encounter. The data comes from the [place] facility where the Encounter took place. Date/Time Smoking Status/Tobacco Use Comment F acility Mar 25, 2022 12:45 PM ME-TOBACCO QUIT 15 YRS OR MORE [facility] Mar 18, 2021 10:00 AM VA-TOBACCO FORMER USER [facility] Mar 18, 2021 10:00 AM VA-TOBACCO QUIT 15 YRS OR MORE [facility] Oct 16, 2018 11:06 AM VA-TOBACCO FORMER USER [facility] Oct 16, 2018 11:06 AM VA-TOBACCO QUIT 15 YRS OR MORE [facility] Sep 08, 2017 10:30 AM FORMER TOBACCO USER 7Y OR GREATE R [facility] September 02, 2016 10:04 AM FORMER TOBACCO USER 7Y OR GREATE R [facility] August 27, 2015 12:32 AM FORMER TOBACCO USER 7Y OR GREATE R [facility] August 28, 2014 08:53 AM FORMER TOBACCO USER 7Y OR GREATE R [facility] Sep 25, 2013 09:48 AM FORMER TOBACCO USER 7Y OR GREATE R [facility] Apr 25, 2006 10:07 AM FORMER TOBACCO USER 7Y OR GREATE R [facility] Advance Directives: All historical and current Section Date Range: From patient's date of to the date document was created. This section includes ALL of a patient's completed or amended [place] Advance and Rescinded Directives. The entries below indicate that a directive exists for the patient, but an actual copy is not included with this document. The data comes from all [facility]. Date Advance Directives Provider Source Apr 20, 2004 ADVANCE DIRECTIVE BABITA DIGGS [facility] Encounter Notes: All associated encounter notes This section contains the clinical notes associated to the Encounter. Date/Time Encounter Note(s) Provider Source Mar 08, 2023 09:42 AM PSYCHIATRY E & M N OTE: LOCAL TITLE: PSYCHIATRIC EVALUATION & MANAGEMENT STANDARD TITLE: PSYCHIATRY E & M NOTE DATE OF NOTE: MAR 08, 2023@09:42 ENTRY DATE: MAR 08, 2023@09:42:13 AUTHOR: ALICJA ESPINO COSIGNER: URGENCY: STATUS: COMPLETED Medication management and supportive psychotherapy appointment Video visit; pt consented to format and confirmed location Time spent: 11 minutes Supportive Psychotherapy: 9 minutes ID: is a male with a history of PTSD who has been seen at the [facility] for many years. Subjective: Remains stable. No evidence of decompensation. Continues to utilize medications appropriately. No evidence of any SI/intent/plan. Deals with longstanding PTSD symptoms, but not of how to manage them. Continues to utilize sedative-hypnotic appropriately. We will continue with current regimen. Medications: Active Outpatient Medications (including Supplies): Active Outpatient Medications [...] TWICE ACTIVE A DAY FOR HEART FAILURE 5) CHOLECALCIF 25MCG (D3-1,000UNIT) TAB TAKE ONE TABLET ACTIVE (S) BY MOUTH EVERY MORNING 6) FLUTICASONE PROP [...] CAP TAKE ONE CAPSULE BY MOUTH ACTIVE (S) EVERY DAY TO DECREASE STOMACH ACID -TAKE ON AN EMPTY STOMACH, AT LEAST 30 MINUTES BEFORE A MEAL 10) PRAVASTATIN NA 10MG TAB TAKE ONE TABLET BY MOUTH ACTIVE EVERY DAY FOR CHOLESTEROL 11) PRIMIDONE 50MG TAB TAKE TWO TABLETS BY MOUTH EVERY ACTIVE DAY FOR TREMOR 12) SPIRONOLACTONE 25MG TAB TAKE ONE TABLET BY MOUTH ACTIVE (S) EVERY MORNING 13) VANICREAM TOP CREAM APPLY [...] 5MG TAB 5MG MOUTH EVERY ACTIVE DAY 18 Total Medications PSYCHIATRIC MEDICATION RECONCILIATION: Psychiatric medications were reviewed, list above is accurate Mental Status Exam (video): Speech: Clear and fluent. Mood: I am doing pretty good Affect: Nonlabile. Thought process: Linear. Thought content: No evidence of SI/HI/AH/VH. No delusions or paranoia elicited. Cognition: Appropriate. Insight: Appropriate. Judgment: Appropriate Risk assessment: (Unchanged from prior) Patient with history of PTSD, prior suicide attempt years ago via overdose, history of alcohol abuse in the past. However, no evidence of suicidal ideation, intent, or plan, patient remains active in [facility], has remained sober for many years. He is able to recognize his triggers and address them by seeking help. In a stable relationship, housing stable, patient engaged in many activities which he enjoys. As such the patient is deemed to be at low-risk for imminent self- harm and and chronic low risk for self-harm. Diagnosis: PTSD; alcohol dependence in full sustained remission Assessment and plan: [place] is a male with a history of PTSD and alcohol dependence in full sustained remission who presents for routine follow up appointment. Patient continues to manage well on his regimen, managing longstanding PTSD symptoms well, no evidence of abuse of sedative-hypnotic. Tolerating sedative-hypnotic well. Plan: -Continue bupropion 150 mg sustained action twice daily - Continue Buspar, Zolpidem, as prescribed above - Patient to continue therapy with SHELBIE Rzaa - Follow-up in 4 months via video - Patient has clinic contact information if experiencing decompensation. Alcohol Use Screen (AUDIT-C): Alcohol Screen: SCREEN FOR ALCOHOL (AUDIT-C) An alcohol screening test (AUDIT-C) was negative (score=0). 1. How often did you have a drink containing alcohol in the past year? Never 2. How many drinks containing alcohol did you have on a typical day when you were drinking in the past year? Response not required due to responses to other questions. 3. How often did you have six or more drinks on one occasion in the past year? Response not required due to responses to other questions. /francisco/ ALICJA ESPINO MD PSYCHIATRIST Signed: 03/24/2023 15:25 ALICJA ESPINO [facility]
--- OUTSIDE RECORDS SUMMARY | 2023-10-25 20:26 | XMS_ITS | Encounter Summary ---
Author Organization [facility] Address [address] [place] [address] Care Team Providers Care Hoseman Name Role Phone Bre Pham MD Primary Care Provider [phone] Encounter Details Date Type Department Care Team (Late st Contact Info) Description 09/22/2023 Office Communication [facility] [address] [place] [address] Sylwia Gomez [address] [place] [address] Social History Tobacco Use Types Packs/Day Years [...] encounter Miscellaneous Notes * Telephone Encounter - Sylwia Gomez - 10/10/2023 10:17 AM CDT Provider kuldip for pvls no orders received yet. RTC 10/16. Do they need pvls? * Telephone Encounter - Sylwia Gomez - 09/22/2023 2:59 PM CDT Patient RTC with you 10/16. Please order PVL if needed. documented in this encounter Plan of Treatment Not on file documented as of this encounter Visit Diagnoses Not on filedocumented in this encounter Care Teams Hoseman Relationship Specialty Start Date End Date Bre Pham MD [address] [place] [address] PCP - General Internal Medicine 04/16/23 documented as of this encounter
--- OUTSIDE RECORDS SUMMARY | 2023-10-25 20:26 | XMS_ITS | Encounter Summary ---
Author Name [facility] [place] Organization [facility] [place] Address [address] [place] [address] Care Team Providers Care Day Care Provider Name Role Phone ZOLTAN SYED Primary Care [...] Name Patient's Relationship to Policy Hawkins MEDICA [facility] (WNR) MEDICARE ADVANTAGE [facility] (WNR) Apr 10, 2021 [id number] KAT NAZARIO PATIENT MEDICARE (WNR) MEDICARE (M) PART A May 11, 1989 PART A [id number] [facility] [phone] KAT NAZARIO PATIENT MEDICARE (WNR) MEDICARE (M) PART B May 11, 1989 PART B [id number] [facility] [phone] KAT NAZARIO MIGUE PATIENT Selected Encounter This section includes the information on record at [place] for the Encounter. Date/Time Encounter Type Encounter Description Reason Provider Source Nov 09, 2022 09:30 AM OFFICE O/P EST SF 10-19 MIN [facility] ICD-10-CM F43.12 Post-traumatic stress disorder, chronic CHASE LEÓN IHEmeli Encounter Template Text not used by [place] Assessments - Encounter Diagnoses This section includes the primary and secondary diagnoses documented for the Encounter. Date/Time Primary/Secondary Diagnosis Diagnosis Name Provider Source Nov 09, 2022 10:19 AM PRIMARY Post-traumatic stress disorder, chronic CHASE LEÓN [facility] Plan of Treatment: Future Appointments (+ 6 months) and Future Tests (+/- 45 days) The Plan of Treatment section includes future care activities for the patient from [facility] [place] [facility]. This section includes future appointments and future orders which are active, pending or scheduled. Future Appointments This section includes appointments that were scheduled to occur 6 months from the date of the Encounter, up to a maximum of 20 appointments. The data comes from all [place] treatment facilities. Appointment Date/Time Appointment Type Appointme nt Facility Name Jan 09, 2023 10:00 AM AMBULATORY - PSYCHIATRY [facility] Mar 08, 2023 09:30 AM AMBULATORY - PSYCHIATRY [facility] Mar 22, 2023 01:45 PM [facility] Mar 22, 2023 02:00 PM AMBULATORY - PSYCHIATRY [facility] Mar 22, 2023 03:00 PM AMBULATORY - MEDICINE [facility] Social History: Smoking Status (Most current) and Tobacco Use (All prior to encounter date) This section includes the most current, and the historical, smoking and tobacco- related health factors from the [place] facility where the Encounter took place. Current Smoking Status This section includes the most current smoking, or tobacco-related health factor, from the [place] facility where the Encounter took place. Date/Time Current Smoking Status Comment Facil ity Mar 25, 2022 12:45 PM VA-TOBACCO FORMER USER [facility] Tobacco Use History This section includes a history of the smoking, or tobacco-related health factors, that were collected on or before the date of the Encounter. The data comes from the [place] facility where the Encounter took place. Date/Time Smoking Status/Tobacco Use Comment F acility Mar 25, 2022 12:45 PM VA-TOBACCO QUIT 15 YRS OR MORE [facility] Mar 18, 2021 10:00 AM VA-TOBACCO FORMER USER [facility] Mar 18, 2021 10:00 AM VA-TOBACCO QUIT 15 YRS OR MORE [facility] Oct 16, 2018 11:06 AM VA-TOBACCO FORMER USER [facility] Oct 16, 2018 11:06 AM VA-TOBACCO QUIT 15 YRS OR MORE [facility] Sep 08, 2017 10:30 AM FORMER TOBACCO USER 7Y OR GREATE R [facility] September 02, 2016 10:04 AM FORMER TOBACCO USER 7Y OR GREATE R [facility] August 27, 2015 12:32 AM FORMER TOBACCO USER 7Y OR GREATE R [facility] August 28, 2014 08:53 AM FORMER TOBACCO USER 7Y OR GREATE R [facility] Sep 25, 2013 09:48 AM FORMER TOBACCO USER 7Y OR GREATE R [facility] Apr 25, 2006 10:07 AM FORMER TOBACCO USER 7Y OR GREATE R [facility] Advance Directives: All historical and current Section Date Range: From patient's date of to the date document was created. This section includes ALL of a patient's completed or amended [place] Advance and Rescinded Directives. The entries below indicate that a directive exists for the patient, but an actual copy is not included with this document. The data comes from all [place] facilities. Date Advance Directives Provider Source Apr 20, 2004 ADVANCE DIRECTIVE BABITA DIGGS [facility] Encounter Notes: All associated encounter notes This section contains the clinical notes associated to the Encounter. Date/Time Encounter Note(s) Provider Source Nov 09, 2022 10:20 AM ACCOUNTING OF DISC LOSURES NOTE: LOCAL TITLE: STATE PRESCRIPTION DRUG MONITORING PROGRAM STANDARD TITLE: ACCOUNTING OF DISCLOSURES NOTE DATE OF NOTE: NOV 09, 2022@10:20:15 ENTRY DATE: NOV 09, 2022@10:20:15 AUTHOR: HEIDI LEÓN EXP COSIGNER: URGENCY: STATUS: COMPLETED This PDMP query was submitted by eHidi León MD. The clinical justification for this PDMP query is to review controlled substances prescribed outside of the [place], and any additional information that may become available, as an important component of standard clinical care, and in accordance with [facility] policy. Patient information was shared with the PDMP [place]. No prescription(s) for controlled substances outside the [place] were found in the last 90 days. /francisco/ HEIDI LEÓN MD PSYCHIATRIST Signed: 11/09/2022 10:20 HEIDI LEÓN [facility] Nov 09, 2022 09:35 AM PSYCHIATRY E & M N OTE: LOCAL TITLE: PSYCHIATRIC EVALUATION & MANAGEMENT STANDARD TITLE: PSYCHIATRY E & M NOTE DATE OF NOTE: NOV 09, 2022@09:35 ENTRY DATE: NOV 09, 2022@09:35:21 AUTHOR: HEIDI LEÓN COSIGNER: URGENCY: STATUS: COMPLETED Medication management and supportive psychotherapy appointment Video visit; pt consented to format and confirmed location Time spent: 18 minutes Supportive Psychotherapy: 16 minutes ID: [place] is a male with a history of PTSD who has been seen at the [facility] for many years. Subjective: Patient remained stable, managing PTSD symptoms, finding med regimen helpful. No evidence of abuse of medications, no sleepwalking with sedative hypnotic. Wishing to continue on his regimen. Clinical reminders completed. Remains active socially. Medications: Active Outpatient Medications (including Supplies): Active [...] BY MOUTH TWICE A ACTIVE DAY 8) LOSARTAN 50MG TAB TAKE ONE TABLET BY MOUTH EVERY DAY ACTIVE FOR BLOOD PRESSURE 9) OLODATEROL/TIOTROP 2.5MCG/ACTUAT 60D INH INHALE 2 ACTIVE PUFFS BY INHALATION EVERY DAY TO PREVENT TROUBLE BREATHING 10) OMEPRAZOLE 20MG EC CAP TAKE ONE CAPSULE BY MOUTH ACTIVE EVERY DAY TO DECREASE STOMACH ACID -TAKE ON AN EMPTY STOMACH, AT LEAST 30 MINUTES BEFORE A MEAL 11) PRAVASTATIN NA 10MG TAB TAKE ONE TABLET BY MOUTH ACTIVE EVERY DAY CHOLESTEROL FOR CHOLESTEROL 12) PRIMIDONE 50MG TAB TAKE ONE AND ONE-HALF TABLETS BY ACTIVE MOUTH EVERY DAY FOR TREMOR 13) SPIRONOLACTONE 25MG TAB TAKE ONE TABLET BY MOUTH ACTIVE EVERY MORNING 14) VANICREAM TOP CREAM APPLY A THIN LAYER TO DRY SKIN ACTIVE TOPICALLY TWICE A DAY XEROSIS TO MOISTURIZE 15) ZOLPIDEM TARTRATE 10MG TAB TAKE ONE TABLET [...] 5MG TAB 5MG MOUTH EVERY ACTIVE DAY 19 Total Medications PSYCHIATRIC MEDICATION RECONCILIATION: Psychiatric medications were reviewed, list above is accurate Mental Status Exam (video): Speech: Clear and fluent. Mood: I am doing fine Affect: Nonlabile. Thought process: Linear. Thought content: No evidence of SI/HI/AH/VH. No delusions or paranoia elicited. Cognition: Appropriate. Insight: Appropriate. Judgment: Appropriate Risk assessment: (Unchanged from prior) Patient with history of PTSD, prior suicide attempt years ago via overdose, history of alcohol abuse in the past. However, no evidence of suicidal ideation, intent, or plan, patient remains active in [facility], has remained sober for many years. He is able to recognize his triggers and address them by seeking help. In a stable relationship, housing stable, patient engaged in many activities which he enjoys. As such the patient is deemed to be at low-risk for imminent self- harm. Diagnosis: PTSD; alcohol dependence in full sustained remission Assessment and plan: [place] is a male with a history of PTSD and alcohol dependence in full sustained remission who presents for routine follow up appointment. Patient continues to function well on his regimen, no evidence of any abuse of sedative-hypnotic or any significant side effects -- willing to continue on his regimen, amenable to 4 tyrell f/u. Plan: -Continue bupropion 150 mg sustained action twice daily - Continue Buspar, Zolpidem, as prescribed above - Patient to continue therapy with SHELBIE Raza - Follow-up in 4 months via video - Patient has clinic contact information if experiencing decompensation. --------clinical reminders Suicide Screen: C-SSRS Screening Archuleta-Suicide Severity Rating Scale (C-SSRS Screener) 1. Over the past month, have you wished you were or wished you could go to sleep and not wake up? No 2. Over the past month, have you had any actual thoughts of killing yourself? No 3. Over the past month, have you been thinking about how you might do this? Response not required due to responses to other questions. 4. Over the past month, have you had these thoughts and had some intention of acting on them? Response not required due to responses to other questions. 5. Over the past month, have you started to work out or worked out the details of how to kill yourself? Response not required due to responses to other questions. 6. If yes, at any time in the past month did you intend to carry out this plan? Response not required due to responses to other questions. 7. In your lifetime, have you ever done anything, started to do anything, or prepared to do anything to end your life (for example, collected pills, obtained a gun, gave away valuables, went to the roof but didn't jump)? No 8. If YES, was this within the past 3 months? Response not required due to responses to other questions. Depression Screening: Perform PHQ-2 A PHQ-2 screen was performed. The score was 0 which is a negative screen for depression. Over the past two weeks, how often have you been bothered by the following problems? 1. Little interest or pleasure in doing things Not at all 2. Feeling down, depressed, or hopeless Not at all /es/ HEIDI LEÓN MD PSYCHIATRIST Signed: 11/09/2022 10:19 HEIDI LEÓN [facility]
--- OUTSIDE RECORDS SUMMARY | 2023-10-25 20:26 | XMS_ITS | Clinical Summary ---
Author Organization [facility] Address [place], [place] [address] Care Team Providers Care Lifter/Driver Name Role Phone Bre Pham MD Primary Care Provider [phone] Иван Pena MD Unavailable NaraAngel harris MD Unavailable [phone] Allergies Active Allergy Reactions Criticality Noted Date Comments Lisinopril Cough 07/14/2010 Medications Medication Sig Dispensed Refills Start Date End Date Status albuterol HFA (PRO-AIR,VENTOLIN, PROVENTIL) 90 mcg/Actuation inhaler Inhale 2 Puffs by mouth 4 times daily if needed. 1 Inhaler 0 08/25/19 11 Active omeprazole (PRILOSEC) 20 mg capsuleIndications :Stauffer esophagus Take 20 mg by mouth once daily before a meal. 60 capsule 0 08/28/19 11 Active zolpidem (AMBIEN) 10 mg tablet Take 10 mg by mouth at bedtime if needed for Sleep. Active busPIRone (BUSPAR) 10 mg tablet Take 20 mg by mouth 2 times daily. Take 2 additional tablets daily if needed (Maximum of 6 tablets per day) Active cholecalciferol (VITAMIN D3) 1,000 unit tablet Take 1,000 Units by mouth once daily. Active buPROPion (WELLBUTRIN SR) 150 mg Sustained-Release tabletIndications: Anxiety Take 1 tablet by mouth 2 times daily. 60 tablet 03/13/20 19 Active latanoprost (XALATAN) 0.005 % ophthalmic solution Place 1 Drop into right eye at bedtime. 02/18/20 20 Active artificial tears, peg 400-propylene glycol, (SYSTANE, PROPYLENE GLYCOL,) 0.4-0.3 % drop ophthalmicIndicati ons:Dry eyes Place 1 Drop into right eye 2 times daily if needed for Dry Eyes (When Patient eyes are feeling dry). 0.1 mL 03/17/20 20 Active dimethicone-zinc oxide (Vanicream Diaper Rash) 1.1-40 % oint 2 times daily if needed. 07/07/19 21 Active Combigan 0.2-0.5 % ophthalmic solution Place 1 Drop into right eye 2 times daily if needed. 11/13/19 21 Active fluticasone (50 mcg per actuation) nasal solution (FLONASE)Indicatio ns:Nasal congestion Inhale 2 Sprays to both nostrils once daily. 16 g 5 02/11/20 21 Active thiamine mononitrate, vit B1, (VITAMIN B1) 100 mg tabletIndications: Chronic systolic heart failure (HC) Take 1 Tablet (100 mg) by mouth once daily. 30 Tablet 11 07/14/19 23 Active primidone (MYSOLINE) 50 mg tabletIndications: Essential tremor Take 1 Tablet (50 mg) by mouth two times daily. 60 Tablet 11/19/19 23 Active rosuvastatin (CRESTOR) 20 mg tabletIndications: Other hyperlipidemia Take 1 Tablet (20 mg) by mouth at bedtime. 90 Tablet 3 03/24/20 23 Active empagliflozin (Jardiance) 10 mg tabletIndications: Chronic systolic heart failure (HC) TAKE ONE TABLET BY MOUTH EVERY DAY 90 Tablet 3 06/13/19 24 Active cod liver oiL cap Take 1 Capsule by mouth once daily. Active oxygen-air delivery systems (HOME OXYGEN)Indications :Pulmonary fibrosis (HC) Portable Oxygen concentrator for home use. Liters per minute: 3L pulse dose with activity. Frequency of use: Continuous with portability.;. Length of need: 99 Months. 08/14/19 24 Active BIPAPIndications:O bstructive sleep apnea New bPAP auto machine for home use at pressure: I: max 20 E min 5, PS4 cmw , Heated humidifier x 1 q 5 yr, Humidifier chamber x 1 q 6 mo, Full face mask x1 q 3mos, with cushion x 1 q mo, Heated tubing x 1 q 3 mo, Headgear x 1 q 6 mo, Filters: Disposable x 2 q mo non-disposable filters x1 q 6mo, O2 fed into bipap at 3L/min via full face mask Length of Need: 99 months, Frequency of use: Daily 1 Each 08/24/19 24 Active tiotropium-olodate roL (STIOLTO RESPIMAT) 2.5-2.5 mcg/actuation inhaler Inhale 2 Puffs by mouth once daily. Active acetaminophen (TYLENOL EXTRA STRGTH) 500 mg tabletIndications: Status post right knee replacement Take 2 Tablets (1,000 mg) by mouth every 6 hours. Max acetaminophen dose: 4000mg in 24 hrs. 100 Tablet 08/31/19 24 Active sennosides-docusat e (SENOKOT S) (8.6-50 mg) tabletIndications: Status post right knee replacement Take 1-3 Tablets by mouth two times daily. 100 Tablet 08/31/19 24 Active sacubitril-valsart an (ENTRESTO 49 MG-51 MG TABLET) 49-51 mg tabletIndications: Chronic systolic heart failure (HC) Take 1 Tablet by mouth two times daily. 09/08/19 24 Active carvediloL (COREG) 12.5 mg tablet Take 12.5 mg by mouth two times daily. 03/22/20 23 Active furosemide (LASIX) 40 mg tabletIndications: Chronic systolic heart failure (HC) Take 2 Tablets (80 mg) by mouth once daily in the morning. 09/22/19 24 Active warfarin (COUMADIN) 5 mg tabletIndications: History of deep venous thrombosis (DVT) of distal vein of left lower extremity,Anticoag ulation monitoring, INR range 2-3 Take by mouth 5 mg (5 mg x 1) every Mon, Elizabeth, Sat; 2.5 mg (5 mg x 0.5) all other days in the evening OR as directed 65 Tablet 10/19/19 24 Active warfarin (COUMADIN) 5 mg tabletIndications: History of deep venous thrombosis (DVT) of distal vein of left lower extremity,Anticoag ulation monitoring, INR range 2-3 Take by mouth; 5 mg every Mon, Elizabeth, Sat; 2.5 mg all other days OR as directed 09/01/19 24 024 Discontinued pravastatin (PRAVACHOL) 10 mg tablet Take 1 Tablet by mouth once daily. 03/22/20 024 Discontinued(*D iscontinued by another clinician) spironolactone (ALDACTONE) 25 mg tabletIndications: Ischemic cardiomyopathy,Chr onic systolic heart failure (HC) Take 1 Tablet (25 mg) by mouth once daily in the morning. 09/22/19 024 Discontinued(*A llergic/Adverse Rxn/Side Effects) Active Problems Problem Noted Date Diagnosed Date Near syncope 09/01/2023 Near syncope 09/01/2023 Primary osteoarthritis of right knee 08/30/2023 Asymmetrical sensorineural hearing loss 11/09/19 Restrictive lung disease 06/30/2022 Arthritis of left knee 03/28/2022 Arthritis of right knee 03/28/2022 Primary osteoarthritis of left knee 10/04/2021 Chronic pain of left knee 10/04/2021 Cardiac resynchronization th erapy pacemaker (BARREL LOADER-P) in place 07/31/2020 Pulmonary fibrosis 07/31/2020 GAYLA (obstructive sleep apnea) 03/13/2020 Overview: Diagnosed in [place]. Uses BiPap Anxiety 03/11/2019 Pacemaker 03/07/2018 Overview: -dual chamber PPM placed for CHB 05/22/2017 - 04/09/2020 upgrade to BARREL LOADER-P due to RV pacing induced CMP *attempts at CS/LV lead placement aborted with placement of a His/Purkinge RV lead instead *small pericardial effusion post procedure (challenging CS lead attempt) Chronic left shoulder pain 01/26/2018 Arthritis of shoulder 01/26/2018 Impingement syndrome of left shoulder 01/26/2018 Complete heart block 05/21/2017 Overview: S/p dual-chamber pacemaker placement Venous insufficiency 01/16/2017 History of deep venous throm bosis (DVT) of distal vein of left lower extremity 08/13/2014 Overview: 05/22/09: Evidence of valvular incompetence and reflux were noted in the left common femoral vein, popliteal and posterior tibial veins of the left leg. No reflux could be identified in the mid femoral vein. However, reflux is also noted throughout the greater saphenous vein and at the junction of the greater saphenous vein and common femoral vein. Reflux is noted throughout the greater saphenous and lesser saphenous veins. Anticoagulation monitoring, INR range 2-3 2012 Elevated diaphragm, right 08/28/2010 ACP (advance care planning) 12/25/2009 Overview: Patient has identified Health Care Agent(s): Yes Add Health Care Agents: Yes Health Care Agent(s): Primary Health Care Agent: Audie Stephens Relationship: sister Secondary Health Care Agent: Relationship: Phone: Conservator: Relationship: Phone: Guardian: Relationship: Phone: Patient has Advanced Care Plan Documents (Health Care Directive, POLST): Yes Advance Care Plan Documents: Health Care Directive Patient has identified Specific Treatment Preferences: Patient states that he has in his [facility] which he will bring to [facility] 01/01/10 to be scanned into his medical record. 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 Complete heart block. S/P BARREL LOADER implant 07/24/2020 Cardiomyopathy, ischemic 12/01/2009 Stauffer esophagus 12/01/2009 HTN (hypertension) 11/27/2009 PTSD (post-traumatic stress disorder) 11/27/2009 Overview: From [place]. On bupropion for anxiety and zolpidem for nightmares Intention tremor 11/27/2009 Overview: On propranolol Hyperlipidemia Resolved Problems Problem Noted Date Diagnosed Date Resolved Date Stauffer's esophagus determined by endoscopy 07/04/2023 08/13/2023 Obesity, morbid 09/14/2021 05/04/2023 Stage 3b chronic kidney disease 04/16/2020 02/22/2021 Acute deep vein thrombosis ( DVT) of femoral vein of left lower extremity 03/14/2020 04/16/2020 Postthrombotic syndrome with ulcer of left lower extremity 03/18/2019 04/23/2019 Acute congestive heart failure 03/11/2019 03/18/2019 Hypoxia 03/11/2019 04/23/2019 Viral pneumonia 03/11/2019 03/18/2019 Dyspnea on exertion 03/10/2019 03/18/20 19 Left leg cellulitis 01/16/2017 07/23/19 20 Venous ulcer-leg syndrome, left 01/16/2017 03/13/2018 GI bleed 11/27/2009 12/04/2009 Chest Pain 01/16/2017 Overview: hemoglobin 5.7 due to duodenal ulcer 12/01/09 Nuclear Stress test: Deep vein thrombosis (DVT) 0 09/22/2014 Overview: Recurrent deep vein thromboses Encounters Date Type Department Care Team Description 10/25/2023 Nurse Triage [address] [address] Bre Pham MD 10/20/2023 9:50 AM CDT Orders Only [address] [address] Lab, [facility] 10/20/[address] [place] [address] Ahsan Stallings MD Lab (Improved BMP--august resume Rx) 10/20/2023 Travel 10/19/2023 [address] [address] Bre Pham MD Refill Request (Warfarin) 10/18/2023 Telephone [facility] [address] [place] [address] Ahsan Stallings MD Results (Worsening renal functions. Advisements to hold aldactone, lasix, and entresto. Repeat labs on Monday.) 10/18/2023 Anticoagulation (warfarin) [address] [place] [address] 1, [facility] Anticoagulation 10/17/2023 2:30 PM CDT Orders Only [facility] [address] [place] [address] Lab, [place] [facility] 10/17/2023 2:00 PM CDT Office Visit [facility] [address] [place] [phone] Ahsan Stallings MD Follow Up (6 month follow up) 10/17/2023 Travel 10/17/2023 Orders Only [facility] [address] [place] [address] Angel Bains MD <No scans attached> 10/05/2023 Home Care Visit [place] [address] [place] [phone] Ruth Tam, RN SN - DISCIPLINE DISCHARGE 10/04/2023 3:00 PM CDT Orders Only [facility] [address] [place] [address] 1 scan: (1-Ord) ECHO TTE COMPLETE WO CONTRAST ([id number]) 10/03/2023 10:15 AM CDT Home Care Visit [place] [address] [place] [phone] Rena Keene, PT PT - OASIS DISCHARGE 10/03/2023 Home Care Visit [place] [address] [place] [phone] Ila Alexandra, OT OT - DISCIPLINE DISCHARGE 10/03/2023 Travel 09/30/2023 7:30 AM CDT Home Care Visit [place] [address] [place] [phone] Ruth Tam, RN SN - MISSED VISIT 09/29/2023 Telephone [facility] [address] [place] [address] Dorys Drummond, BUSINESS PROCESS MODELER Questions 09/27/2023 Home Care Visit [place] [address] [place] [phone] Ila Alexandra, OT CARE COORDINATION 09/26/2023 4:00 PM CDT Home Care Visit [facility] [address] [facility] [place] [address] Heidy Murguia COTA OT - HOME VISIT 09/26/2023 10:45 AM CDT Home Care Visit [facility] [address] [facility] [place] [address] Rena Keene, PT PT - HOME VISIT 09/26/2023 Travel 09/22/2023 2:15 PM CDT Home Care Visit [facility] [address] [facility] [place] [address] Aye Page WEB PRODUCTION ARTIST PT - HOME VISIT 09/22/2023 10:40 AM CDT Office Visit [address] [address] Bre Pham MD Follow Up (Knee Replacement.) 09/22/2023 Anticoagulation (warfarin) [address] [address] 1, [facility] Anticoagulation 09/22/2023 Travel 09/21/[address] [address] Bre Pham MD Anticoagulation (CHART UPDATE ) 09/20/2023 8:30 AM CDT Home Care Visit [facility] [address] [place] [address] Norah Rockwell RN SN - MISSED VISIT 09/18/2023 11:30 AM CDT Home Care Visit [facility] [address] [facility] [place] [address] Rena Keene, PT PT - HOME VISIT 09/18/2023 9:00 AM CDT Home Care Visit [facility] [address] [facility] [place] [address] Ila Alexandra, DEBRA OT - INITIAL ASSESSMENT 09/14/2023 12:45 PM CDT Home Care Visit [facility] [address] [facility] [place] [address] Rena Keene, PT PT - HOME VISIT 09/14/2023 4:00 AM CDT Home Care Visit [facility] [address] [facility] [place] [address] Ruth Tam, RN SN - MISSED VISIT 09/14/2023 Travel 09/12/2023 1:45 PM CDT Ancillary Procedure [facility] [address] [place] [address] 09/12/2023 1:30 PM CDT Office Visit [facility] [address] [place] [address] Maureen Knight PA Post-op (2 week post op right TKA 08/30/23) 09/12/2023 Home Care Visit [facility] [address] [facility] [place] [address] Ruth Tam, RN CARE COORDINATION 09/11/2023 10:15 AM CDT Home Care Visit [facility] [address] [facility] [place] [address] Rena Keene, PT PT - HOME VISIT 09/11/2023 Home Care Visit [facility] [address] [facility] [place] [address] Ila Alexandra, OT CARE COORDINATION 09/11/2023 Travel 09/09/2023 11:00 AM CDT Home Care Visit [facility] [address] [facility] [place] [address] Tony Barrios, RN SN - INITIAL ASSESSMENT 09/08/2023 10:40 AM CDT Office Visit [address] [place] [address] Bre Pham MD Hospital F/U (Knee Procedure. Fall at home) 09/07/2023 10:15 AM CDT Home Care Visit [facility] [address] [place] [address] Rena Keene, PT PT - HOME VISIT 09/07/2023 Home Care Visit [facility] [address] [place] [address] Ila Alexandra, OT CARE COORDINATION 09/07/2023 Travel 09/05/2023 11:30 AM CDT Home Care Visit [facility] [address] [place] [address] Rena Keene, PT PT - OASIS START OF CARE 09/05/2023 Telephone [facility] [address] [place] [address] Rena Keene, PT Home Care (Requesting additional homecare orders; /Severe medication interactions; /and O2 Sats below [facility]'s norms) 09/05/2023 Plan of Care Documentation [facility] [address] [place] [address] 09/05/2023 Home Care Visit [facility] [address] [place] [address] Donna Malloy, PT CARE COORDINATION 09/05/[address] [address] Bre Pham MD Hospital F/U 09/05/2023 Patient Outreach [address] [address] Emili Hurst RN Primary RN Care Management (Hospital DC: 09/01/23/LACE: 64/Arthritis of Right Knee also readmit for near syncope); Hospital F/U 09/03/2023 Home Care Visit [facility] [address] [place] [address] Lucila Modi, RN NOT TAKEN UNDER HOME CARE 09/02/2023 Travel 09/01/2023 5:48 PM CDT - 09/04/2023 4:21 PM CDT Hospital Encounter [facility] [address] [place] [address] Wilson Livingston MD Qadri, SOSA Hutton Marc Tollef, MD Cudak, Sarwat Ibrahim, DO Pantoja, Marva Rodriguez NP Syncope, unspecified syncope type (Primary Dx); Fall, initial encounter; Injury of head, initial encounter; Cardiomyopathy, ischemic; Chronic systolic heart failure (HC); Primary osteoarthritis of right knee Discharge Disposition: Home Health 09/01/2023 Telephone [facility] [address] [place] [address] Dorys Drummond NP Telehealth 08/30/2023 11:00 AM CDT - 08/30/2023 1:57 PM CDT Surgery [facility] [address] [place] [address] Minesh Carpenter MD RIGHT TOTAL KNEE ARTHROPLASTY 08/30/2023 10:52 AM CDT Anesthesia Event [facility] [address] [place] [address] Moe Roe MD Howard, Darwin Thomas, CRNA 08/30/2023 8:32 AM CDT - 09/01/2023 2:51 PM CDT Hospital Encounter [facility] [address] [place] [address] Minesh Carpenter MD [facility] NP Larsen, Brian David, MD Arthritis of right knee (Primary Dx); Status post right knee replacement; History of deep venous thrombosis (DVT) of distal vein of left lower extremity; Anticoagulation monitoring, INR range 2-3; Ischemic cardiomyopathy; Chronic systolic heart failure (HC) Discharge Disposition: Home Health 08/29/2023 Travel 08/23/2023 1:30 PM CDT Telemedicine [facility] [address] [place] [address] [facility] [address] [place] [address] Dorys Drummond NP Telehealth 08/23/2023 Travel 08/18/2023 Telephone [facility] [address], [place] [address] Bre Pham MD Questions 08/16/[address], [place] [address] Bre Pham MD Anticoagulation (Review orders) 08/16/2023 Travel 08/15/2023 Orders Only [address], [place] [address] Bre Pham MD 1 scan: (1-Ord) 08/14/2023 08/14/2023 2:15 PM CDT Ancillary Procedure [address] [place] [address] 08/14/2023 1:40 PM CDT Preop Visit [address], [place] [address] Bre Pham MD Preoperative Exam (Right Knee replacement, 08/30/23, Dr. Carpenter) 08/14/2023 Anticoagulation (warfarin) [address] [place] [address], [facility] Anticoagulation (Chart update) 08/14/2023 Travel 08/07/2023 11:40 AM CDT Orders Only [address] [place] [address] Lab [facility] Lab 08/07/2023 Anticoagulation (warfarin) [address] [place] [address] 1, [facility] Anticoagulation 08/07/2023 Travel 08/02/2023 11:45 AM CDT Office Visit [address] [place] [address] Alicja Massey MD congestion 08/02/2023 11:10 AM CDT Orders Only [address] [place] [address] Lab, [facility] 08/02/2023 Anticoagulation (warfarin) [facility] [address] [place] [address] 1, [facility] Anticoagulation (Office Visit ) 08/02/2023 Travel 08/01/2023 Telephone [facility] [address] [place] [address] Belinda Jasso, BENNY Preoperative Exam (Right total knee arthroplasty 08/30/23) 07/29/2023 Travel from Last 3 Months Immunizations Name Administration Dates Next Due COVID-19 Vaccine Spikevax (M oderna 50mcg/0.5mL) 12YO+ 9738-2827 Formula PF 01/25/2023 COVID-19 vaccine (Pfizer-Bio NTech 30mcg/0.3mL) 12YO+ BIVALENT PF, MDV 12/29/2021 COVID-19 vaccine (Pfizer-Bio NTech 30mcg/0.3mL) 12YO+ ADE-SUCROSE PF, MDV 07/16/2021 COVID-19 vaccine (Pfizer-Bio NTech 30mcg/0.3mL) PF, MDV 07/04/2020,06/13/2020 Hepatitis B (Adult) 06/02/2008,01/21/2008,200701/23/2008 Influenza A (H1N1), Inactivated 2009 Influenza A (H1N1), Inactiva carmelita (Age >=3 Years) 04/13/2009 Influenza Virus, Unspecified 12/27/2021, 01/15/2021,01/11/2020,12/09,01/17/2011,01/08/2011,01/09/2008 ,01/22/2007,02/17/2006,02/10/1998 Influenza, High-dose Inactivated 01/04/2016,01/09,01/13/2014 Influenza, IIV3 (Age >=3 years) 01/09/20 15,02/04/2013,12/26/2011,01/17,01/21/2008,01/22/2007,02/06/2006 ,01/31/2005,01/21/2003 Influenza, Inactivated AIIV4 (Age 65+ Years) Preserv Free 01/25/2023,12/27/2021,01/15/2021,01/10 Influenza, Inactivated IIV3 (Age 65+ Years) Preserv Free 01/08/2019,01/19/2018,01/11/2017,12/09 Pneumococcal Poly,23-Valent (Pneumovax) 08/22/2012,02/08/2004 Pneumococcal conj 13-Valent (Prevnar 13) 10/06/2015 Pneumococcal, Unspecified 08/24/2012,02/02/2004 TD, UNSPECIFIED 07/07/2004 Tdap 03/18/2021,08/24/2011,12/07/2007 Zoster (Shingrix-RZV, recombinant) 09/13/2018, Zoster (Zostavax-ZVL, live) 05/14/2007 Family History Medical History Relation Name Comments Cancer-pancreatic Father Arthritis Mother Macular degeneration Mother Lung cancer Sister 1 Lissett twin Relation Name Status Comments Father (Age 67) Mother (Age 82) Sister 1 Lissett Sister 2 Julia Alive Social History Tobacco Use Types Packs/Day Years Used Date Smoking Tobacco: Former Cigarettes 1 35 0 05/09/1961 - 05/09/1996 Smokeless Tobacco: Never Tobacco Cessation:Counseling Given: Yes Alcohol Use Standard Drinks/Week Comments No 0 (1 standard drink = 0.6 oz pur e alcohol) Quit 33 years ago PHQ-2 Answer Date Recorded PHQ-2 TOTAL SCORE 6 09/08/2023 Social Connections Answer Date Recorded Frequency of Communication with Friends and Fami ly 0 07/29/2023 Financial Resource Strain Answer Date R ecorded Difficulty of Paying Living Expenses 3 07/29/2023 Difficulty of Paying Living Expenses Not on file 07/29/2023 Food Insecurity Answer Date Recorded Worried About Running Out of Food in the Last Ye ar 1 07/29/2023 Transportation Needs Answer Date Record ed Lack of Transportation (Medical) 1 07/29/2023 Housing Stability Answer Date Recorded Unable to Pay for Housing in the Last Year 1 07/29/2023 Sex and Gender Information Value Date Recorded Sex Assigned at Not on file Gender Identity Not on file Sexual Orientation Not on file Obstetrics History Last Filed Vital Signs Vital Sign Reading Time Taken Comments Blood Pressure 93/63 10/17/2023 1:59 PM CDT Pulse 70 10/17/2023 1:59 PM CDT Temperature 36.3 ??C (97.4 ??F) 10/03/2023 10:28 AM C DT Respiratory Rate 18 10/03/2023 10:28 AM CDT Oxygen Saturation 90% 10/17/2023 1:59 PM CDT Inhaled Oxygen Concentration - - Weight 109 kg (240 lb 3.2 oz) 10/17/2023 1:59 PM CDT Height 160 cm (5' 3) 09/01/2023 5:57 PM CDT Body Mass Index 42.55 09/01/2023 5:57 PM CDT Plan of Treatment Upcoming Encounters Date Type Department Care Team (Late st Contact Info) Description 11/22/2023 2:20 PM CDT Office Visit [address] [address] Bre Pham MD [address] [place] [address] 11/29/2023 12:30 PM CDT Orders Only [address] [address] Lab, [facility] 11/29/2023 3:30 PM CDT Office Visit [facility] [address] [place] [address] Nelson Muller MD [address] [place] [place] [address] 12/14/2023 Cardiac Device Check [facility] [place] [facility] [place] [phone] Health Maintenance Due Date Last Done Comments Medicare Wellness for age 65+ 03/14/2019 03/13/2018 COVID-19 vaccine series ( season) 2023 01/25/2023, 12/29/2021, 07/16/2021, Additional history exists Influenza for age 65+ 12/10/2023 01/25/2023 , 12/27/2021, 12/27/2021, Additional history exists BMI (ht and wt on same day) for age 18+ 06/11/2024 06/12/2023, 05/03/2023, 02/10/2023, Additional history exists Depression screening for age 12+ 09/11/2024 09/12/2023, 09/08/2023, 09/05/2023, Additional history exists Tetanus booster 03/18/2031 03/18/2021, 08/08, 12/07/2007, Additional history exists Pneumococcal series for age 65+ Completed 10/06/2015, 08/24/2012, 08/22/2012, Additional history exists Hepatitis C screening for ag e 18-79 Completed 03/13/2018 Zoster (shingles) series for age 50+ Completed 09/13/2018, 06/19/2018, 05/14/2007 Tdap Completed 03/18/2021, 08/08, 12/07/2007 Medical Devices Implanted Type Area Telecasting Engineer Device Identifier Shelf Expiration Date Model / Serial / Lot Baseplate Tib Lt Sz 6 Carmen Ii Titnm Non Pors - [id number] Implanted:Qty: 1 on 12/19/2022 by Minesh Carpenter MD at [facility] Ortho Total Joint Left: Knee [employer] 07/22/2032 [id number] / / [id number] Baseplate Tib Rt Sz 6 Carmen Ii Titnm Non Pors - [id number] Implanted:Qty: 1 on 08/30/2023 by Minesh Carpenter MD at [facility] Ortho Total Joint Right: Knee [employer] 03/02/2032 [id number] / / [id number] Cmnt Bone 40g Simplex P Non Atb Mv - [id number] Implanted:Qty: 2 on 12/19/2022 by Minesh Carpenter MD at [facility] Left: Knee [employer] 11/07/2024 [id number] / / [id number] Bone Matrix 10cc Stimulan Kitrapid Cure - [id number] Implanted:Qty: 1 on 12/19/2022 by Minesh Carpenter MD at [facility] Left: Knee [employer] 08/07/2025 [id number] / / [id number] Fem Lt Sz 7 Legion Cruc Ret Cocr Non Pors - [id number] Implanted:Qty: 1 on 12/19/2022 by Minesh Carpenter MD at [facility] Left: Knee [employer] 08/13/2032 [id number] / / [id number] Patella 38mm Carmen Ii Resurf - [id number] Implanted:Qty: 1 on 12/19/2022 by Minesh Carpenter MD at [facility] Left: Knee [employer] 02/08/2032 [id number] / / [id number] Insert Knee Sz 5-6 12mm Legion Cruc Ret High Flex Xlpe - [id number] Implanted:Qty: 1 on 12/19/2022 by Minesh Carpenter MD at [facility] Left: Knee [employer] 09/30/2028 [id number] / / [id number] Carmen Ii Long Stem [id number] Implanted:Qty: 1 on 12/19/2022 by Minesh Carpenter MD at [facility] Left: Knee [id number] / / Description:CARMEN II LONG STEM [id number] Patella 35x7.5mm Carmen Ii Resurf - [id number] Implanted:Qty: 1 on 08/30/2023 by Minesh Carpenter MD at [facility] Right: Knee [employer] 05/14/2033 [id number] / / [id number] Fem Rt Sz 7 Legion Cruc Ret Cocr Non Pors - [id number] Implanted:Qty: 1 on 08/30/2023 by Minesh Carpenter MD at [facility] Right: Knee [employer] 01/25/2032 [id number] / / [id number] Insert Knee Sz 5-6 10mm Legion Cruc Ret High Flex Xlpe - [id number] Implanted:Qty: 1 on 08/30/2023 by Minesh Carpenter MD at [facility] Right: Knee [employer] 01/29/2033 [id number] / / [id number] Stem Long Carmen Ii Implanted:Qty: 1 on 08/30/2023 by Minseh Carpenter MD at [facility] Right: Knee 04/30/2033 [id number] / / [id number] Description:STEM LONG GENESI S II Cmnt Bone 40g Simplex P Non Atb Mv - [id number] Implanted:Qty: 2 on 08/30/2023 by Minesh Carpenter MD at [facility] Right: Knee [employer] 05/10/2025 [id number] / / [id number] Bone Matrix 10cc Stimulan [employer]ure - [id number] Implanted:Qty: 1 on 08/30/2023 by Minesh Carpenter MD at [facility] Right: Knee [employer] 04/09/2026 [id number] / / [id number] Procedures Procedure Name Priority Date/Time Associated Diagnosis Comments BASIC METABOLIC PANEL Routine 10/20/2023 9:19 AM CDT Chronic systolic heart failure (HC) PROTIME-INR STAT 10/17/2023 2:47 PM CDT History of deep venous thrombosis (DVT) of distal vein of left lower extremity Anticoagulation monitoring, INR range 2-3 BASIC METABOLIC PANEL Routine 10/17/2023 2:47 PM CDT Chronic systolic heart failure (HC) ECHO TTE COMPLETE WO CONTRAST Routine 10/04/2023 4:07 PM CDT Cardiomyopathy, ischemic PROTIME-INR STAT 09/22/2023 10:38 AM CDT History of deep venous thrombosis (DVT) of distal vein of left lower extremity Anticoagulation monitoring, INR range 2-3 SPINAL BLOCK Routine 09/15/2023 8:59 AM CDT XR KNEE WB 2 VIEWS BILATERAL AND 1 VIEW RIGHT Routine 09/12/2023 1:46 PM CDT Status post total right knee replacement with Dr. Carpenter 08/30/23 PROTIME-INR Routine 09/08/2023 12:47 PM CDT Anticoagulation monitoring, INR range 2-3 BASIC METABOLIC PANEL Routine 09/08/2023 12:47 PM CDT Chronic systolic heart failure (HC) HEMOGLOBIN Routine 09/08/2023 12:47 PM CDT Normocytic anemia SCAN-CARDIAC STRIP 09/04/2023 7: 57 AM CDT HEMOGLOBIN Early AM 09/04/2023 6:49 AM CDT CREATININE Early AM 09/04/2023 6:49 AM CDT POTASSIUM Early AM 09/04/2023 6:49 AM CDT SODIUM Early AM 09/04/2023 6:49 AM CDT PROTIME-INR Early AM 09/04/2023 6:49 AM CDT SCAN-CARDIAC STRIP 09/03/2023 9: 22 AM CDT ELECTROLYTE PANEL Early AM 09/03/2023 6:4 3 AM CDT PROCALCITONIN Early AM 09/03/2023 6:43 AM CDT HEMOGLOBIN Early AM 09/03/2023 6:43 AM CDT CREATININE Early AM 09/03/2023 6:43 AM CDT PROTIME-INR Early AM 09/03/2023 6:43 AM CDT HEPATIC FUNCTION PANEL NITA 09/02/2023 12:48 PM CDT BLOOD GAS,VENOUS Today 09/02/2023 12:48 PM CDT LACTATE VENOUS Today 09/02/2023 12:48 PM CDT HEMOGLOBIN Today 09/02/2023 12:48 PM CDT POTASSIUM Today 09/02/2023 12:48 PM CDT SCAN-CARDIAC STRIP 09/02/2023 8: 19 AM CDT PROTIME-INR Early AM 09/02/2023 7:00 AM CDT PLATELET COUNT Early AM 09/02/2023 7:00 AM CDT HEMOGLOBIN Early AM 09/02/2023 7:00 AM CDT BASIC METABOLIC PANEL Early AM 09/02/2023 7:00 AM CDT TYPE & SCREEN Today 09/02/2023 3:06 AM CDT HEMOGLOBIN Today 09/02/2023 3:06 AM CDT SCAN-CARDIAC STRIP 09/02/2023 2: 04 AM CDT CORTISOL TOTAL Timed 09/02/2023 12:09 AM CDT TROPONIN T (HS) ONE TIME Timed 09/01/2023 9:[address] SPINE CERVICAL WO STAT 09/01/2023 7:[address] HEAD BRAIN WO STAT 09/01/2023 7:[address] CHEST PE STUDY STAT 09/01/2023 7:0 7 PM CDT PROTIME-INR STAT 09/01/2023 6:44 PM CDT PRO-BNP STAT 09/01/2023 6:44 PM CDT TROPONIN T (HS) ACUTE W/2HR REFLEX STAT 09/01/2023 6:44 PM CDT LACTATE VENOUS Today 09/01/2023 6:44 PM CDT BASIC METABOLIC PANEL STAT 09/01/2023 6:44 PM CDT CBC W PLT NO DIFF STAT 09/01/2023 6:4 4 PM CDT BEDSIDE US STUDY ARCHIVE Routine 09/01/2023 6:02 PM CDT EKG 12 LEAD STAT 09/01/2023 5:55 PM CDT CREATININE Early AM 09/01/2023 8:52 AM CDT POTASSIUM Early AM 09/01/2023 8:52 AM CDT SODIUM Early AM 09/01/2023 8:52 AM CDT PROTIME-INR Early AM 09/01/2023 8:52 AM CDT HEMOGLOBIN Early AM 09/01/2023 8:52 AM CDT SCAN-PACER 09/01/2023 12:00 AM CDT SCAN-PACER 09/01/2023 12:00 AM CDT POTASSIUM STAT 08/31/2023 5:14 PM CDT POTASSIUM Today 08/31/2023 10:44 AM CDT CREATININE Early AM 08/31/2023 6:37 AM CDT POTASSIUM Early AM 08/31/2023 6:37 AM CDT SODIUM Early AM 08/31/2023 6:37 AM CDT HEMOGLOBIN Early AM 08/31/2023 6:37 AM CDT PROTIME-INR Early AM 08/31/2023 6:37 AM CDT Arthritis of right knee XR KNEE 2 VIEWS RIGHT PORTABLE NITA 08/30/2023 2:05 PM CDT ARTHROPLASTY KNEE Elective 08/30/2023 10:36 AM CDT Primary osteoarthritis of right knee Case Notes SPINAL/ADDUCTOR CANAL SINGLE SHOT BLOCKSUPINE ON REGULAR TABLESMITH AND NEPHEW LEGION/INHOUSE Special Needs Will need consent day of surgery.BMI 42.91 PERIPHERAL BLOCK Routine 08/30/2023 10:35 AM CDT PERIPHERAL BLOCK Routine 08/30/2023 10:35 AM CDT GLUCOSE METER Timed 08/30/2023 9:46 AM CDT GLUCOSE METER Timed 08/30/2023 9:37 AM CDT PROTIME-INR Today 08/30/2023 9:15 AM CDT BEDSIDE US STUDY ARCHIVE Routine 08/30/2023 9:00 AM CDT SCAN-CARDIAC STRIP 08/30/2023 12:00 AM CDT XR CHEST 2 VIEWS PA AND LATERAL Routine 08/14/2023 2:37 PM CDT OLIVAS (dyspnea on exertion) CBC W PLT NO DIFF Routine 08/14/2023 2:1 3 PM CDT OLIVAS (dyspnea on exertion) BASIC METABOLIC PANEL Routine 08/14/2023 2:13 PM CDT Cardiomyopathy, ischemic EKG 12 LEAD Routine 08/14/2023 12:00 AM CDT Cardiomyopathy, ischemic PROTIME-INR STAT 08/07/2023 11:38 AM CDT 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 SODIUM 140 136 - 145 mmol/L 10/20/2023 10:15 AM [facility] POTASSIUM 4.4 3.5 - 5.1 mmol/L 10/20/2023 10:15 AM [facility] CHLORIDE 105 98 - 107 mmol/L 10/20/2023 10:15 AM [facility] CO2,TOTAL 27 22 - 29 mmol/L 10/20/2023 10:15 AM [facility] ANION GAP 8 5 - 18 10/20/2023 10:15 AM [facility] GLUCOSE 106(H) 70 - 99 mg/dL 10/20/2023 10:15 AM [facility] CALCIUM 10.3(H) 8.8 - 10.2 mg/dL 10/20/2023 10:15 AM [facility] BUN 30(H) 8 - 23 mg/dL 10/20/2023 10:15 AM [facility] CREATININE 1.10 0.70 - 1.20 mg/dL 10/20/2023 10:15 AM [facility] BUN/CREAT RATIO 27(H) 10 - 20 10:15 AM [facility] eGFR 70(L) >90 mL/min/1.7 3m2 10/20/2023 10:15 AM [facility] Comment:As of 2021, eG FR is calculated by the CKD-EPI creatinine equation without race adjustment. ??eGFR can be influenced by muscle mass, exercise, and diet. ??The reported eGFR is an estimation only and is only applicable if the renal function is stable. Blood BLOOD SPECIMEN / Unknown Venipuncture / Unknown 10/20/2023 9:19 AM CDT 10/20/2023 9:41 AM CDT Ahsan Stallings MD CHEMISTRY Performing Organization Address [facility]/ZIP Co de Phone Number [facility] [address] [place] [address] * (ABNORMAL) PROTIME-INR (10/17/2023 2:47 PM CDT) Only the most recent of12 resultswithin the time period is included. INR 2.9(H) <1.3 10/17/2023 10:08 PM CDT [facility] PROTIME 31.2(H) 10.3 - 12.3 sec 10/17/2023 10:08 PM CDT [facility] Blood BLOOD SPECIMEN / Unknown Venipuncture / Unknown 10/17/2023 2:47 PM CDT 10/17/2023 2:48 PM CDT Narrative [facility] - 10/17/2023 10:08 PM CDT ?Therapeutic Range 2.0-3.0 for most anticoagulated patients 2.5-3.5 or 4.0 for high risk patients The INR is only used for patients on stable oral anticoagulant therapy. It makes no significant contribution to the diagnosis or treatment of patients whose Protime is prolonged for other reasons. INR results are increased when heparin levels exceed 1.0 U/mL, which corresponds to an aPTT >125 seconds if the patient is on UFH. Bre Pham MD HEMATOLOGY Performing Organization Address [facility]/ZIP Co de Phone Number [facility] [address] [place] [address], * ECHO TTE COMPLETE WO CONTRAST (10/04/2023 4:07 PM CDT) AORTIC VALVE MEAN PG 4 mmHg PEAK TR VELOCITY 3.1 m/s LVEDD 5.5 cm EJECTION FRACTION 50 - 55% Anatomical Region Laterality Modality Ultrasound 10/04/2023 3:10 PM CDT Narrative 10/04/2023 4:54 PM CDT ECHOCARDIOGRAM JANN NAZARIO ? Accession#: ?? [id number] : ?1945 78 years Study Date: ?? 10/04/2023 3:10:32 PM Gender: M ?BP: ? 110/60 mmHg Height: 160.00 cm ?BSA: ?2.13 m? ? ? Weight: 114.00 kg ?Tech: ? MBW ? Referring MD: BRE PHAM Site: ? [facility] Reading Location: Mobile-OP Patient Location: Outpatient. Procedure: 2D, Color Doppler and Spectral Doppler. Indication for study: Cardiomyopathy, ischemic (Pacemaker) Cardiac Rhythm: Regular.Study quality: Technically limited. Imaging limitations: This study was subject to imaging limitations due to being supine (pt unable to lay on left side due to shoulder pain). Final Impressions: 1. Technically limited exam. 2. Normal LV size, low normal global systolic function with an estimated EF of 50%. 3. Right ventricular cavity size is normal, global systolic RV function is mildly reduced. 4. Mildly enlarged left atrium. 5. Moderate tricuspid regurgitation. Comparison Compared to prior exam of , there has been no significant change. Chamber Sizes and Function Normal left ventricular size, borderline wall thickness, low normal global systolic function with an estimated EF of 50 - 55%. Left atrial size is mildly enlarged. Right ventricular cavity size is normal, global systolic RV function is mildly reduced. Pacing wire/catheter visualized in the right ventricle. The right atrium is normal. Right atrial area is 21 cm? ? ?. The pulmonary artery is not well visualized. The sinus of Valsalva is normal sized. The ascending aorta is normal sized. Valves, RV Pressures and Diastolic Function The aortic valve is normal in structure and trileaflet, no stenosis and no regurgitation. The mitral valve is normal in structure, trace mitral regurgitation. Indeterminate pattern of LV diastolic filling. The tricuspid valve is not well visualized. Tricuspid regurgitation is moderate. The tricuspid regurgitant velocity is 3.1 m/s, the estimated right ventricular systolic pressure is 38 mmHg plus right atrial pressure. The pulmonic valve is not well visualized. Mild pulmonary regurgitation. Masses, Effusion, Shunts There is no pericardial effusion. The inferior vena cava is not well visualized, respiratory size variation not well visualized. Interatrial septum is not well visualized. MEASUREMENTS AND CALCULATIONS 2-D Measurements and LV Function: LVID (d) 5.5 cm LV FS% (2D) ?? 23 % LVID (s) 4.2 cm LVOT diameter 2.1 cm IVS (d) ??1.2 cm HR ?72 bpm LVPW (d) 0.9 cm LA Vol index ??30 ml/m2 Ao Sinus 3.6 cm RA area ? 21 cm? ? ? Asc Ao ?? 3.8 cm RV Max 4C (d) 4.4 cm LA ? 5.1 cm Diastology: Mitral ?Tissue Doppler E Peak 0.7 m/s ??e', Septum ? 0.07 m/s A Peak 0.8 m/s ??e', Lateral ?0.08 m/s E/A ?0.9 ?E/e' Average ?? 9.43 DT ? 196 msec Aortic Valve: Vmax ? 1.5 m/s ??JANIYA (V) ?? 2.45 cm? ? ? VTI ?0.29 m ?? JANIYA (I) ?? 2.29 cm? ? ? LVOT V max ? 1.0 m/s ??Max PG ?8 mmHg LVOT VTI ? 0.19 m ?? Mean PG ?? 4 mmHg SV ? 65 ml ?Dim Index 0.67 SV index ? 31 ml/m? ? ? CO ?4.7 l/min AV Ejection Time 0.30 sec CI ?2.2 l/min/m? ? ? AV Flow Rate ? 215 ml/s Mitral Valve: MVA ? 3.9 cm? ? ? MV P 1/2 ??57 msec MV Mean G 1 mmHg MV VTI ?0.22 m Tricuspid Valve and estimated PA pressures: TR Vmax 3.1 m/s TAPSE 1.9 cm TR maxG 38 mmHg . This study was interpreted by an [facility] accredited facility. ??Final ?? Procedure Note Reginaldo Stern MD - 10/04/2023 ECHOCARDIOGRAM JANN NAZARIO : 1945 78 years Study Date: 10/04/2023 3:10:32 PM Gender: M BP: 110/60 mmHg Height: 160.00 cm BSA: 2.13 m? ? ? Weight: 114.00 kg Tech: CIARRA Referring MD: BRE PHAM Site: [facility] Reading Location: Mobile-OP Patient Location: Outpatient. Procedure: 2D, Color Doppler and Spectral Doppler. Indication for study: Cardiomyopathy, ischemic (Pacemaker) Cardiac Rhythm: Regular.Study quality: Technically limited. Imaging limitations: This study was subject to imaging limitations due tobeing supine (pt unable to lay on left side due to shoulder pain). Final Impressions: 1. Technically limited exam. 2. Normal LV size, low normal global systolic function with an estimatedEF of 50%. 3. Right ventricular cavity size is normal, global systolic RV functionis mildly reduced. 4. Mildly enlarged left atrium. 5. Moderate tricuspid regurgitation. Comparison Compared to prior exam of , there has been no significant change. Chamber Sizes and Function Normal left ventricular size, borderline wall thickness, low normal globalsystolic function with an estimated EF of 50 - 55%. Left atrial size ismildly enlarged. Right ventricular cavity size is normal, global systolicRV function is mildly reduced. Pacing wire/catheter visualized in theright ventricle. The right atrium is normal. Right atrial area is 21 cm? ? ?.The pulmonary artery is not well visualized. The sinus of Valsalva isnormal sized. The ascending aorta is normal sized. Valves, RV Pressures and Diastolic Function The aortic valve is normal in structure and trileaflet, no stenosis and noregurgitation. The mitral valve is normal in structure, trace mitralregurgitation. Indeterminate pattern of LV diastolic filling. Thetricuspid valve is not well visualized. Tricuspid regurgitation ismoderate. The tricuspid regurgitant velocity is 3.1 m/s, the estimatedright ventricular systolic pressure is 38 mmHg plus right atrial pressure.The pulmonic valve is not well visualized. Mild pulmonary regurgitation. Masses, Effusion, Shunts There is no pericardial effusion. The inferior vena cava is not wellvisualized, respiratory size variation not well visualized. Interatrialseptum is not well visualized. MEASUREMENTS AND CALCULATIONS 2-D Measurements and LV Function: LVID (d) 5.5 cm LV FS% (2D) 23 % LVID (s) 4.2 cm LVOT diameter 2.1 cm IVS (d) 1.2 cm HR 72 bpm LVPW (d) 0.9 cm LA Vol index 30 ml/m2 Ao Sinus 3.6 cm RA area 21 cm? ? ? Asc Ao 3.8 cm RV Max 4C (d) 4.4 cm LA 5.1 cm Diastology: Mitral Tissue Doppler E Peak 0.7 m/s e', Septum 0.07 m/s A Peak 0.8 m/s e', Lateral 0.08 m/s E/A 0.9 E/e' Average 9.43 DT 196 msec Aortic Valve: Vmax 1.5 m/s JANIYA (V) 2.45 cm? ? ? VTI 0.29 m JANIYA (I) 2.29 cm? ? ? LVOT V max 1.0 m/s Max PG 8 mmHg LVOT VTI 0.19 m Mean PG 4 mmHg SV 65 ml Dim Index 0.67 SV index 31 ml/m? ? ? CO 4.7 l/min AV Ejection Time 0.30 sec CI 2.2 l/min/m? ? ? AV Flow Rate 215 ml/s Mitral Valve: MVA 3.9 cm? ? ? MV P 1/2 57 msec MV Mean G 1 mmHg MV VTI 0.22 m Tricuspid Valve and estimated PA pressures: TR Vmax 3.1 m/s TAPSE 1.9 cm TR maxG 38 mmHg . This study was interpreted by an [facility] accredited facility. Final Bre Pham MD ECHO ORD * HCHG TRAY PR10 (09/15/2023 8:59 AM CDT) Narrative Moe Roe MD - 09/15/2023 8:59 AM CDT Moe Roe MD ? 09/15/2023 ??9:01 AM Spinal Block Patient location during procedure: OR Start time: 08/30/2023 10:57 AM End time: 08/30/2023 3:09 PM Reason for block: primary anesthetic PreProcedure Checklist Completed: patient identified, risks and benefits discussed, timeout performed, hand hygiene performed, chloraprep used and completely dried prior to procedure, IV checked, surgical consent and hand hygiene performed Spinal Block Patient position: sitting Prep: chloraprep Patient monitoring: continuous pulse oximetry, ECG and blood pressure Supplemental O2: yes Approach: midline Skin Infiltration: lidocaine 1% Location: L3-4 Needle Needle type: pencil-point Needle gauge: 24 G Needle length: 3.5 in Assessment Sensory level: T8 Events: no complications. Additional Notes SAB actually performed on 08/30/2023. [facility] doesn't allow charting a procedure greater than 25 hours in arrears Moe Roe MD ANESTHESIA P X NOTE ORDERABLES * XR KNEE WB 2 VIEWS BILATERAL AND 1 VIEW RIGHT (09/12/2023 1:46 PM CDT) Anatomical Region Laterality Modality KNEES, KNEE R Digital Radiogra phy Impressions 09/12/2023 3:17 PM CDT Stable right total knee arthroplasty without complication (DOS: 08/30/23) Maureen Knight PA-C 09/12/2023 Narrative 09/12/2023 3:17 PM CDT This radiology exam was performed at [facility] and interpreted by Maureen Knight PA-C HISTORY: A 78 y.o. year - old male with history of right TKA (DOS: 08/30/23) ?? TECHNIQUE Three views of the right knee were obtained today including: weightbearing bilateral AP, lateral and sunrise views. FINDINGS: Right S&N TKA in acceptable alignment. No change in position as compared to previous films. ??No obvious evidence of loosening. ??Patella is resurfaced. ??Patellar tracking within normal limits. ??No acute fracture or dislocation. ? [facility] * HEMOGLOBIN (09/08/2023 12:47 PM CDT) Only the most recent of8 resultswithin the time period is included. HEMOGLOBIN 13.5 13.5 - 17.5 g/dL 09/08/2023 1:03 PM CDT [facility] MCV 97 80 - 100 fL 09/08/2023 1:03 PM CDT [facility] Blood BLOOD SPECIMEN / Unknown Venipuncture / Unknown 09/08/2023 12:47 PM CDT 09/08/2023 12:47 PM CDT Bre Pham MD HEMATOLOGY Performing Organization Address [facility] Co de Phone Number [facility] [address] [place] [address] * SCAN-CARDIAC STRIP (09/04/2023 7:57 AM CDT) Scanner OTHER * SODIUM (09/04/2023 6:49 AM CDT) Only the most recent of3 resultswithin the time period is included. SODIUM 141 136 - 145 mmol/L 09/04/2023 7:39 AM CDT [facility] Blood BLOOD SPECIMEN / Unknown Venipuncture / Unknown 09/04/2023 6:49 AM CDT 09/04/2023 6:58 AM CDT Sarwat Gonzalez DO CHEMISTRY Performing Organization Address [facility]/ZIP Co de Phone Number [facility] [address] [place] [address] * POTASSIUM (09/04/2023 6:49 AM CDT) Only the most recent of6 resultswithin the time period is included. Pathologist [facility] POTASSIUM 4.4 3.5 - 5.1 mmol/L 09/04/2023 7:39 AM CDT [facility] Blood BLOOD SPECIMEN / Unknown Venipuncture / Unknown 09/04/2023 6:49 AM CDT 09/04/2023 6:58 AM CDT Sarwat Dextermaegan Barrazacorona CHEMISTRY Performing Organization Address [facility] Co de Phone Number [facility] [address] [place] [address] * CREATININE (09/04/2023 6:49 AM CDT) Only the most recent of4 resultswithin the time period is included. [facility] eGFR >90 >90 mL/min/1.7 3m2 09/04/2023 7:39 AM CDT [facility] Comment:As of 2021, eG FR is calculated by the CKD-EPI creatinine equation without race adjustment. ??eGFR can be influenced by muscle mass, exercise, and diet. ??The reported eGFR is an estimation only and is only applicable if the renal function is stable. CREATININE 0.82 0.70 - 1.20 mg/dL 09/04/2023 7:39 AM CDT [facility] Blood BLOOD SPECIMEN / Unknown Venipuncture / Unknown 09/04/2023 6:49 AM CDT 09/04/2023 6:58 AM CDT Sarwat Dextermaegan Carlos CHEMISTRY Performing Organization Address City/[facility]/ZIP Co de Phone Number [facility] [address] [place] [address] * SCAN-CARDIAC STRIP (09/03/2023 9:22 AM CDT) Scanner OTHER * PROCALCITONIN (09/03/2023 6:43 AM CDT) [facility] PROCALCITONIN 0.08 ng/ml 09/03/2023 7:46 AM CDT [facility] Blood BLOOD SPECIMEN / Unknown Venipuncture / Unknown 09/03/2023 6:43 AM CDT 09/03/2023 6:58 AM CDT [facility] - 09/03/2023 7:46 AM CDT Procalcitonin for initial assessment of Lower Respiratory Tract Infection: Results Interpretation <0.10 ng/mL Antibiotic therapy strongly discoraged. ??Indicates absent of bacterial infection. * 0.10 - 0.25 ng/mL Antibiotic therapy discouraged. ??Bacterial infection unlikely. * 0.26 - 0.50 ng/mL Antibiotic therapy encouraged. ??Bacterial infection possible. >0.50 ng/mL Antibiotic therapy strongly encouraged. ??Suggestive of presence of bacterial infection. *Antibiotic therapy should be considered regardless of PCT result if the patient is clinically unstable, is at high risk for adverse outcome, has strong evidence of bacterial pathogen, or the clinical context indicates antibiotic therapy is warranted. ??If antibiotics are withheld, reassess if symptoms persist/worsen and/or repeat PCT measurement within 6-24 hours. ? In order to assess treatment success and to support a decision to discontinue antibiotic therapy, follow up samples should be tested once every 1-2 days, based upon physician discretion taking into account patient's evolution and progress. Procalcitonin for initial assessment of severe sepsis risk: Results Interpretation <0.5 ng/ml A PCT level below 0.5 ng/ml on the first day of ICU admission is associated with a low risk for progression to severe sepsis and/or septic shock. > 2.0 ng/mL A PCT level above 2.0 ng/mL on the first day of ICU admission is associated with a high risk for progression to severe sepsis and/or septic shock. Note: Concentrations < 0.5 ng/mL do not exclude an infection, on account of localized infections (without systemic signs) which can be associated with such low concentrations, or a systemic infection in its initial stages(< 6 hours). Furthermore, increased procalcitonin can occur without infection. PCT concentrations between 0.5 and 2.0 ng/mL should be interpreted taking into account the patient's history. It is recommended to retest PCT within 6-24 hours if any concentrations < 2 ng/mL are obtained. Sarwat Gonzalez DO SEND OUTS Performing Organization Address [facility] de Phone Number [facility] [address] [place] [address] * ELECTROLYTE PANEL (09/03/2023 6:43 AM CDT) SODIUM 140 136 - 145 mmol/L 09/03/2023 7:33 AM CDT [facility] POTASSIUM 4.5 3.5 - 5.1 mmol/L 09/03/2023 7:33 AM CDT [facility] CHLORIDE 107 98 - 107 mmol/L 09/03/2023 7:33 AM CDT [facility] CO2,TOTAL 25 22 - 29 mmol/L 09/03/2023 7:33 AM CDT [facility] ANION GAP 8 5 - 18 09/03/2023 7:33 AM CDT [facility] Blood BLOOD SPECIMEN / Unknown Venipuncture / Unknown 09/03/2023 6:43 AM CDT 09/03/2023 6:58 AM CDT Sarwat Isaccmaeagn Buidonyacorona [facility] CHEMISTRY Performing Organization Address [facility] de Phone Number [facility] [address] [place] [address] * LACTATE VENOUS (09/02/2023 12:48 PM CDT) Only the most recent of2 resultswithin the time period is included. LACTATE,VENOUS 0.8 0.5 - 2.0 mmol/L 09/02/2023 1:14 PM CDT [facility] Blood BLOOD SPECIMEN / Unknown Venipuncture / Unknown 09/02/2023 12:48 PM CDT 09/02/2023 12:51 PM CDT Sarwat Ericfab Buijanette CHEMISTRY Performing Organization Address [facility] Co de Phone Number [facility] [address] [place] [address] * (ABNORMAL) BLOOD GAS,VENOUS (09/02/2023 12:48 PM CDT) PH, VENOUS 7.31(L) 7.32 - 7.43 09/02/2023 1:03 PM CDT [facility] PCO2, VENOUS 52(H) 41 - 51 mmHg 09/02/2023 1:03 PM T [facility] PO2, VENOUS 78(H) 35 - 40 mmHg 09/02/2023 1:03 PM T [facility] HCO3,VENOUS 26 22 - 29 mmol/L 09/02/2023 1:03 PM T [facility] BASE EXCESS, VENOUS, POCT -0.8 -2.0 - 3.0 09/02/2023 1:03 PM T [facility] O2 SATURATION, VENOUS 97(H) 70 - 75 % 09/02/2023 1:03 PM T [facility] PATIENT TEMPERATURE 37.0 Degrees C 09/02/2023 1:03 PM [facility] Blood VENOUS BLOOD SPECIMEN / Unknown Venipuncture / Unknown 09/02/2023 12:48 PM CDT 09/02/2023 12:51 PM CDT Sarwat Gonzalez DO CHEMISTRY Performing Organization Address [facility]/ZIP Co de Phone Number [facility] [address] [place] [address] * (ABNORMAL) HEPATIC FUNCTION PANEL (09/02/2023 12:48 PM CDT) ALBUMIN 3.4(L) 4.0 - 4.9 g/dL 09/02/2023 3:24 PM CDT [facility] PROTEIN,TOTAL 5.6(L) 6.0 - 8.0 g/dL 09/02/2023 3:24 PM CDT [facility] BILIRUBIN,TOTAL 0.8 0.0 - 1.2 mg/dL 09/02/2023 3:24 PM CDT [facility] BILIRUBIN,DIRECT 0.3 0.0 - 0.3 mg/dL 09/02/2023 3:24 PM CDT [facility] BILIRUBIN,INDIRE CT 0.5 0.2 - 0.8 mg/dL 09/02/2023 3:24 PM CDT [facility] ALK PHOSPHATASE 55 40 - 129 IU/L 09/02/2023 3:24 PM CDT [facility] ALT (SGPT) <5(L) 10 - 50 IU/L 09/02/2023 3:24 PM CDT [facility] AST (SGOT) 23 10 - 50 IU/L 09/02/2023 3:24 PM CDT [facility] Blood BLOOD SPECIMEN / Unknown Venipuncture / Unknown 09/02/2023 12:48 PM CDT 09/02/2023 12:51 PM CDT Sarwat Gonzalez DO CHEMISTRY [facility] [address] [place] [address] * SCAN-CARDIAC STRIP (09/02/2023 8:19 AM CDT) Scanner OTHER * (ABNORMAL) PLATELET COUNT (09/02/2023 7:00 AM CDT) Pathologist [facility] PLATELET COUNT 111(L) 140 - 440 thou/cu mm 09/02/2023 8:20 AM CDT [facility] MPV 11.2(H) 6.5 - 11.0 fL 09/02/2023 8:20 AM CDT [facility] Blood BLOOD SPECIMEN / Unknown Butterfly / Unknown 09/02/2023 7:00 AM CDT 09/02/2023 7:16 AM CDT Ty Skinnerdri [facility] Performing Organization Address City/[facility]/ZIP Co de Phone Number [facility] [address] [place] [address] * TYPE & SCREEN (09/02/2023 3:06 AM CDT) ABORH A Rh Positive 09/02/2023 3:59 AM CDT [facility] BLOOD BANK ANTIBODY SCREEN Negative Negative 09/02/2023 3:59 AM CDT [facility] BLOOD BANK SPECIMEN EXPIRATION DATE/TIME 09/05/23 23:59 09/02/2023 3:59 AM CDT [facility] BLOOD BANK Blood BLOOD SPECIMEN / Unknown Butterfly / Unknown 09/02/2023 3:06 AM CDT 09/02/2023 3:13 AM CDT Ty Griggs [facility] BLOOD BANK Performing Organization Address City/[facility]/ZIP Co de Phone Number [facility] BLOOD BANK [address] [place] [address] * SCAN-CARDIAC STRIP (09/02/2023 2:04 AM CDT) Scanner OTHER * CORTISOL TOTAL (09/02/2023 12:09 AM CDT) Pathologist [facility] CORTISOL,TOTAL 6.1 ug/dL 09/02/2023 2:48 PM CDT [facility] Blood BLOOD SPECIMEN / Unknown Butterfly / Unknown 09/02/2023 12:09 AM CDT 09/02/2023 12:31 AM CDT Narrative [facility] - 09/02/2023 2:48 PM CDT Cortisol ?Morning Hours ?6:00 ??AM - 10:00 AM ?(4.8-19.5 ug/dL) Cortisol ?Afternoon Hours ??4:00 ??PM - ??8:00 PM ?(2.5-11.9 ug/dL) ? Biotin supplements may cause clinically significant interference for this test assay. ??If interference is suspected, it is strongly recommended that biotin is discontinued for at least one week prior to retesting. Donald Reeves MD CHEMISTRY [facility] [address] [place] [address], * (ABNORMAL) TROPONIN T (HS) ONE TIME (09/01/2023 9:05 PM CDT) TROPONIN T HS 26(H) 6-15 ng/L ng/L 09/01/2023 9:30 PM CDT [facility] Blood BLOOD SPECIMEN / Unknown Butterfly / Unknown 09/01/2023 9:05 PM CDT 09/01/2023 9:08 PM CDT Wilson Livingston MD CHEMISTRY Performing Organization Address [facility]/ZIP Co de Phone Number [facility] [address] [place] [address] * CT SPINE CERVICAL WO (09/01/2023 7:09 PM CDT) Anatomical Region Laterality Modality CERVICAL SPINE, NECK, Spine Comp uted Tomography 09/01/2023 7:28 PM CDT Narrative 09/01/2023 7:28 PM CDT For Patients: ??As a result of the Century Cures Act, medical imaging exams and procedure reports are released immediately into your electronic medical record. ??You may view this report before your referring provider. ??If you have questions, please contact your health care provider. Indication: fall Technique: Noncontrast axial CT of the cervical spine with coronal and sagittal reformats are provided. Comparison: No prior studies available for comparison at this institution. Findings: Degenerative retrolisthesis at C3-4 anterolisthesis at C4-5 and C7-T1. No acute osseous or ligamentous abnormality. The craniocervical junction is unremarkable. Severe disc height loss at C3-4, C5-6 and C6-7. Moderate interspace narrowing at C4-5. C1-2: No spinal canal stenosis C2-3: Advanced right and moderate left facet arthrosis. Uncovertebral joint hypertrophy. No significant spinal canal stenosis. Moderate left and mild to moderate right neural foraminal narrowing. C3-4: Disc osteophyte complex, retrolisthesis, severe disc height loss, uncovertebral joint hypertrophy and facet arthrosis. Severe right and moderate severe left neural foraminal narrowing. Moderate-severe central canal stenosis. C4-5: Grade 1 anterolisthesis. Advanced disc height loss. Uncovertebral joint hypertrophy and facet arthrosis. Moderate left and mild right neural foraminal narrowing. Mild spinal canal stenosis. C5-6: Severe disc height loss. Disc osteophyte complex and uncovertebral joint hypertrophy. Moderate right neural foraminal narrowing. Moderate spinal canal stenosis. C6-7: Severe disc height loss. Uncovertebral joint hypertrophy. Severe left and mild right neural foramen narrowing. Moderate facet arthrosis. C7-T1: Grade 1 anterolisthesis. Advanced right and mild left facet arthrosis. No significant spinal canal stenosis or neural foraminal narrowing. Centrilobular emphysema partially visualized in the lungs bilaterally. Partially visualized cardiac pulse generator wires in the left anterior chest. Impression: 1. No convincing radiographic evidence of acute osseous injury. 2. Scattered degenerative changes of the cervical spine. Please note that all CT scans at this facility use dose modulation, iterative reconstruction, and/or weight-based dosing when appropriate to reduce radiation dose to as low as reasonably achievable. Dictated by Abiodun Law MD @ 09/01/2023 7:28:35 PM (Electronically Signed) Procedure Note Abiodun Law MD - 09/01/2023 For Patients: As a result of the 21st Century Cures Act, medical imagingexams and procedure reports are released immediately into your electronicmedical record. You may view this report before your referring provider.If you have questions, please contact your health care provider. Indication: fall Technique: Noncontrast axial CT of the cervical spine with coronal and sagittalreformats are provided. Comparison: No prior studies available for comparison at this institution. Findings: Degenerative retrolisthesis at C3-4 anterolisthesis at C4-5 and C7-T1. Noacute osseous or ligamentous abnormality. The craniocervical junction isunremarkable. Severe disc height loss at C3-4, C5-6 and C6-7. Moderateinterspace narrowing at C4-5. C1-2: No spinal canal stenosis C2-3: Advanced right and moderate left facet arthrosis. Uncovertebraljoint hypertrophy. No significant spinal canal stenosis. Moderate left andmild to moderate right neural foraminal narrowing. C3-4: Disc osteophyte complex, retrolisthesis, severe disc height loss,uncovertebral joint hypertrophy and facet arthrosis. Severe right andmoderate severe left neural foraminal narrowing. Moderate-severe centralcanal stenosis. C4-5: Grade 1 anterolisthesis. Advanced disc height loss. Uncovertebraljoint hypertrophy and facet arthrosis. Moderate left and mild right neuralforaminal narrowing. Mild spinal canal stenosis. C5-6: Severe disc height loss. Disc osteophyte complex and uncovertebraljoint hypertrophy. Moderate right neural foraminal narrowing. Moderatespinal canal stenosis. C6-7: Severe disc height loss. Uncovertebral joint hypertrophy. Severeleft and mild right neural foramen narrowing. Moderate facet arthrosis. C7-T1: Grade 1 anterolisthesis. Advanced right and mild left facetarthrosis. No significant spinal canal stenosis or neural foraminalnarrowing. Centrilobular emphysema partially visualized in the lungs bilaterally.Partially visualized cardiac pulse generator wires in the left anteriorchest. Impression: 1. No convincing radiographic evidence of acute osseous injury. 2. Scattered degenerative changes of the cervical spine. Please note that all CT scans at this facility use dose modulation,iterative reconstruction, and/or weight-based dosing when appropriate toreduce radiation dose to as low as reasonably achievable. Dictated by Abiodun Law MD @ 09/01/2023 7:28:35 PM (Electronically Signed) Wilson Livingston MD CT * CT HEAD BRAIN WO (09/01/2023 7:07 PM CDT) Anatomical Region Laterality Modality HEAD, BRAIN Computed Tomogra phy 09/01/2023 7:23 PM CDT Narrative 09/01/2023 7:23 PM CDT Indication: Fall Technique: CT of the head without contrast. Coronal and sagittal reformats. Bone and soft tissue windows. Comparison: No prior studies available for comparison at this institution. Findings: No acute intracranial hemorrhage or extra-axial collection. No evidence of acute cortical infarction. No mass effect or midline shift. Normal cerebral volume. The ventricles are normal in size, shape and contour. There is normal snell and white matter differentiation. Carotid siphon atherosclerosis. There is a right scleral buckle. ??No calvarial fractures. No lytic or sclerotic osseous lesions within the calvarium or skull base. Scalp and other imaged soft tissue structures are normal. ??Mastoid air cells are clear. Paranasal sinuses are well aerated. Impression: No acute intracranial abnormality. Please note that all CT scans at this facility use dose modulation, iterative reconstruction, and/or weight-based dosing when appropriate to reduce radiation dose to as low as reasonably achievable. Dictated by Abiodun Law MD @ Sep 01 2023 ??7:23PM (Electronically Signed) Neuroradiologist ?? Procedure Note Abiodun Law MD - 09/02/2023 Indication: Fall Technique: CT of the head without contrast. Coronal and sagittal reformats. Bone andsoft tissue windows. Comparison: No prior studies available for comparison at this institution. Findings: No acute intracranial hemorrhage or extra-axial collection. No evidence ofacute cortical infarction. No mass effect or midline shift. Normalcerebral volume. The ventricles are normal in size, shape and contour.There is normal snell and white matter differentiation. Carotid siphonatherosclerosis. There is a right scleral buckle. No calvarial fractures.No lytic or sclerotic osseous lesions within the calvarium or skull base.Scalp and other imaged soft tissue structures are normal. Mastoid aircells are clear. Paranasal sinuses are well aerated. Impression: No acute intracranial abnormality. Please note that all CT scans at this facility use dose modulation,iterative reconstruction, and/or weight-based dosing when appropriate toreduce radiation dose to as low as reasonably achievable. Dictated by Abiodun Law MD @ Sep 01 2023 7:23PM (Electronically Signed) Neuroradiologist Wilson Livingston MD CT * CT CHEST PE STUDY (09/01/2023 7:07 PM CDT) Anatomical Region Laterality Modality CHEST, THORAX, HEART Computed To mography 09/01/2023 7:57 PM CDT Narrative 09/01/2023 7:57 PM CDT For Patients: ??As a result of the Cures Act, medical imaging exams and procedure reports are released immediately into your electronic medical record. ??You may view this report before your referring provider. ??If you have questions, please contact your health care provider. Indication: syncope, fall, recent knee replacement Technique: CTA chest, pulmonary embolism protocol, utilizing 100 mL Omnipaque 350 Comparison: CT chest on July 17, 2020 Findings: No thyroid nodules. No pathologically enlarged lymph nodes throughout the thorax. The heart is at the upper limits of normal in size. No pericardial effusion. Coronary artery calcifications. Left chest wall 3 lead pacemaker. The thoracic aorta and pulmonary artery are normal in caliber. No central pulmonary embolism. Regions of decreased attenuation within the left lower lobe segmental pulmonary arteries are favored to represent contrast mixing artifact, and less likely small pulmonary emboli. No focal airspace consolidation, pleural effusion, or pneumothorax. Atelectatic changes in the right lung base with elevation of the right hemidiaphragm. Progression of emphysematous and fibrotic changes compared to prior exam. No suspicious pulmonary nodules or masses. The airways are clear. The visualized upper abdomen is without acute process. Bilateral gynecomastia. Degenerative changes of the spine. Postsurgical changes of median sternotomy with multiple fractured sternal wires. Impression: 1. No central pulmonary embolism. Regions of decreased attenuation within the left lower lobe segmental pulmonary arteries are favored to represent contrast mixing artifact, and less likely small pulmonary emboli. 2. Progression of emphysematous and fibrotic changes of the lung. Please note that all CT scans at this facility use dose modulation, iterative reconstruction, and/or weight-based dosing when appropriate to reduce radiation dose to as low as reasonably achievable. Dictated by Vitaly Faria MD @ 09/01/2023 7:57:11 PM (Electronically Signed) Procedure Note Vitaly Faria MD - 09/01/2023 For Patients: As a result of the Cures Act, medical imagingexams and procedure reports are released immediately into your electronicmedical record. You may view this report before your referring provider.If you have questions, please contact your health care provider. Indication: syncope, fall, recent knee replacement Technique: CTA chest, pulmonary embolism protocol, utilizing 100 mL Omnipaque 350 Comparison: CT chest on July 17, 2020 Findings: No thyroid nodules. No pathologically enlarged lymph nodes throughout thethorax. The heart is at the upper limits of normal in size. No pericardialeffusion. Coronary artery calcifications. Left chest wall 3 leadpacemaker. The thoracic aorta and pulmonary artery are normal in caliber.No central pulmonary embolism. Regions of decreased attenuation within theleft lower lobe segmental pulmonary arteries are favored to representcontrast mixing artifact, and less likely small pulmonary emboli. No focal airspace consolidation, pleural effusion, or pneumothorax.Atelectatic changes in the right lung base with elevation of the righthemidiaphragm. Progression of emphysematous and fibrotic changes comparedto prior exam. No suspicious pulmonary nodules or masses. The airways areclear. The visualized upper abdomen is without acute process. Bilateral gynecomastia. Degenerative changes of the spine. Postsurgicalchanges of median sternotomy with multiple fractured sternal wires. Impression: 1. No central pulmonary embolism. Regions of decreased attenuation withinthe left lower lobe segmental pulmonary arteries are favored to representcontrast mixing artifact, and less likely small pulmonary emboli. 2. Progression of emphysematous and fibrotic changes of the lung. Please note that all CT scans at this facility use dose modulation,iterative reconstruction, and/or weight-based dosing when appropriate toreduce radiation dose to as low as reasonably achievable. Dictated by Vitaly Faria MD @ 09/01/2023 7:57:11 PM (Electronically Signed) Wilson Livingston MD CT * (ABNORMAL) TROPONIN T (HS) ACUTE W/2HR REFLEX (09/01/2023 6:44 PM CDT) TROPONIN T HS 30(H) 6-15 ng/L ng/L 09/01/2023 7:16 PM CDT [facility] Blood BLOOD SPECIMEN / Unknown Butterfly / Unknown 09/01/2023 6:44 PM CDT 09/01/2023 6:48 PM CDT [facility] - 09/01/2023 7:16 PM CDT hs-cTnT (Elecsys Troponin T Gen 5) concentration (s) above the sex-specific 99th percentile (16 ng/L or greater for males or 11 ng/L or greater for females) are indicative of myocardial injury. If initial hs-cTnT <=100 ng/L at presentation, a 0h/2h ABSOLUTE (ng/L) delta change (rising or falling) of >=10 ng/L suggests a significant change, whereas a 0h/2h delta change <=3 ng/L suggests no significant change. If initial hs-cTnT >100 ng/L at presentation, a 0h/2h/ RELATIVE (percent, %) delta change of 20% is suggested to distinguish patients with acute vs. chronic myocardial injury. There are multiple etiologies that can cause hs-cTnT increases above the 99th percentile (myocardial injury) other than acute myocardial infarction. Clinical context and careful clinical evaluation are critical for diagnosis and risk-stratification. The diagnosis of acute myocardial infarction requires a rising and/or falling pattern in hs-cTnT concentrations with at least one value above the sex-specific 99th percentile PLUS at least one of the following clinical criteria: ischemic symptoms, new or presumed new significant ST-T wave changes or new LBBB, development of pathological Q waves, imaging evidence of new loss of viable myocardium or new regional wall motion abnormality, or identification of intracoronary atherothrombosis or an acute angiographic culprit on coronary angiography. In appropriate low-risk patients with a non-ischemic electrocardiogram without active chest pain with a symptom onset >3-hours without recurrence, a single initial hs-cTnT<6 ng/L identifies patient with a very low risk in emergency department patient population. Wilson Livingston MD CHEMISTRY [facility] [address] [place] [address] * (ABNORMAL) CBC W PLT NO DIFF (09/01/2023 6:44 PM CDT) Only the most recent of2 resultswithin the time period is included. WHITE BLOOD COUNT 8.9 4.5 - 11.0 thou/cu mm 09/01/2023 6:51 PM CDT [facility] RED BLOOD COUNT 4.47 4.30 - 5.90 mil/cu mm 09/01/2023 6:51 PM CDT [facility] HEMOGLOBIN 13.7 13.5 - 17.5 g/dL 09/01/2023 6:51 PM CDT [facility] HEMATOCRIT 44.4 37.0 - 53.0 % 09/01/2023 6:51 PM CDT [facility] MCV 99 80 - 100 fL 09/01/2023 6:51 PM CDT [facility] MCH 30.6 26.0 - 34.0 pg 09/01/2023 6:51 PM T [facility] MCHC 30.9(L) 32.0 - 36.0 g/dL 09/01/2023 6:51 PM T [facility] RDW 16.5(H) 11.5 - 15.5 % 09/01/2023 6:51 PM T [facility] PLATELET COUNT 114(L) 140 - 440 thou/cu mm 09/01/2023 6:51 PM T [facility] MPV 11.3(H) 6.5 - 11.0 fL 09/01/2023 6:51 PM T [facility] Blood BLOOD SPECIMEN / Unknown Butterfly / Unknown 09/01/2023 6:44 PM CDT 09/01/2023 6:48 PM CDT Wilson Livingston MD HEMATOLOGY Performing Organization Address City/State/[facility] Co de Phone Number [facility] [address] [place] [phone] * (ABNORMAL) PRO-BNP (09/01/2023 6:44 PM CDT) [facility] PRO-BNP 471(H) <450 pg/mL 09/01/2023 7:19 PM CDT [facility] Blood BLOOD SPECIMEN / Unknown Butterfly / Unknown 09/01/2023 6:44 PM CDT 09/01/2023 6:48 PM CDT Narrative [facility] - 09/01/2023 7:19 PM CDT The following cut-points have been suggested for the use of proBNP for the diagnostic evaluation of heart failure (HF) in patient with acute dyspnea. Patients with eGFR >= 60 Diagnosis (rule in CHF) ? <50 Years Old ?450 pg/mL 50 - 75 Years Old ?900 pg/mL >75 Years Old ? 1800 pg/mL Exclusion (rule out CHF) Age Independent ?300 pg/mL A cutoff of 1200 pg/mL for patients with an eGFR <60 yields a diagnostic sensitivity of 89% and specificity of 72% for acute congestive heart failure. ? Wilson Livingston MD SEND OUTS [facility] [address] [place] [address] * EKG 12 LEAD (09/01/2023 5:55 PM CDT) Only the most recent of2 resultswithin the time period is included. Interpretation Atrial-sensed ventricular-pa oskar rhythm Biventricular pacemaker detected Abnormal ECG When compared with ECG of 25-JUL-2020 06:45, No significant change was found BEYOND NOW Ventricular Rate 93 BPM BEYOND NOW Atrial Rate 93 BPM BEYOND NOW P-R Interval 208 ms BEYOND NOW QRS Duration 94 ms BEYOND NOW QT 334 ms BEYOND NOW QTc 415 ms BEYOND NOW P [place] 12 degrees BEYOND NOW R [place] 136 degrees BEYOND NOW T [place] 70 degrees BEYOND NOW 09/01/2023 5:55 PM CDT 09/02/2023 7:52 AM CDT Wilson Livingston MD EKG ORD BEYOND NOW [place], [place] * SCAN-PACER (09/01/2023 12:00 AM CDT) Narrative 09/01/2023 12:00 AM CDT Ordered by an unspecified provider. Other Clinical Staff OTHER * SCAN-PACER (09/01/2023 12:00 AM CDT) Narrative 09/01/2023 12:00 AM CDT Ordered by an unspecified provider. Other Clinical Staff OTHER * XR KNEE 2 VIEWS RIGHT PORTABLE (08/30/2023 2:05 PM CDT) Anatomical Region Laterality Modality KNEE R Digital Radiogra phy Narrative 08/30/2023 2:07 PM CDT Indication: Evaluate prosthesis/appliance. Technique: 2 portable postoperative images of the right knee. Findings: Right total knee arthroplasty with patellar resurfacing. ??The components are adequately aligned and well-seated. ??Surgical drain in place. ??Anterior surgical staple line. ??Air within the soft tissues and joint space related to the surgery. Impression: Postsurgical change of the right total knee arthroplasty. ??The components are adequately aligned and well-seated. [facility] * [facility] NDL PR10, HCHG ANES BLOCK INJ PERIPH (08/30/2023 10:35 AM CDT) Narrative Moe Roe MD - 08/30/2023 10:35 AM CDT Moe Roe MD ? 09/15/2023 ??9:00 AM Peripheral Block Patient location during procedure: pre-op Start time: 08/30/2023 10:30 AM End time: 08/30/2023 10:33 AM Reason for block: at surgeon's request and post-op pain Requesting provider: Minesh Carpenter MD PreProcedure Checklist Completed: patient identified, site marked, risks and benefits discussed, surgical consent, timeout performed and hand hygiene performed. Peripheral Block Patient position: supine Prep: chloraprep Patient monitoring: continuous pulse oximetry, ECG and blood pressure Supplemental O2: yes Neuro Status: alert Block type: adductor canal and lower extremity , regional analgesia techniques Lower extremity block type: adductor canal block of the femoral nerve Laterality: right Injection technique: single injection Skin Infiltration: lidocaine 1% Injection assessment: incremental Needle Needle type: short-bevel Needle gauge: 18 G Needle length: 4 in Unilateral needle localization (ultrasound): live ultrasound guidance, needle and nerve visualized, no pathologic findings, local anesthetic visualized surrounding nerve, nerve appears normal and permanent images obtained. Catheter Catheter used:no Events: no complications. Moe Roe MD ANESTHESIA P X NOTE ORDERABLES * (ABNORMAL) GLUCOSE METER (08/30/2023 9:46 AM CDT) Only the most recent of2 resultswithin the time period is included. [facility] GLUCOSE METER 103(H) 65 - 100 mg/dL 08/30/2023 9:47 AM CDT [facility] Blood BLOOD SPECIMEN / Unknown 08/30/2023 9:46 AM CDT 08/30/2023 9:47 AM CDT Minesh Carpenter MD CHEMISTRY [facility] [address] [place] [id number], * SCAN-CARDIAC STRIP (08/30/2023 12:00 AM CDT) Narrative 08/30/2023 12:00 AM CDT Ordered by an unspecified provider. Other Clinical Staff OTHER * XR CHEST 2 VIEWS PA AND LATERAL (08/14/2023 2:37 PM CDT) Anatomical Region Laterality Modality CHEST, THORAX, Lung, HEART Compu carmelita Radiography 08/15/2023 6:38 AM CDT Impressions 08/15/2023 6:38 AM CDT Soft infiltrates at both lung bases similar to previous studies. Dictated by Carlos Cowart MD @ 08/15/2023 6:38:52 AM (Electronically Signed) Narrative 08/15/2023 6:38 AM CDT For Patients: ??As a result of the Cures Act, medical imaging exams and procedure reports are released immediately into your electronic medical record. ??You may view this report before your referring provider. ??If you have questions, please contact your health care provider. INDICATION: Dyspnea on exertion. TECHNIQUE: Chest 2 views. COMPARISON: Chest x-ray 07/25/2020. CT chest 07/17/2020. FINDINGS: Cardiovascular and mediastinum: Sternotomy and pacemaker with multiple leads. Heart size and vasculature are normal in caliber and appearance. Mediastinum is within normal limits. Lungs and pleural spaces: Chronic elevation right hemidiaphragm. Soft infiltrates at both lung bases some of which represents chronic fibrosis and atelectasis as noted on previous chest x-ray and CT. No pleural effusion or pneumothorax Bones and soft tissues: Bony structures difficult to evaluate Procedure Note Calvin Cowart MD - 08/15/2023 For Patients: As a result of the Cures Act, medical imagingexams and procedure reports are released immediately into your electronicmedical record. You may view this report before your referring provider.If you have questions, please contact your health care provider. INDICATION: Dyspnea on exertion. TECHNIQUE: Chest 2 views. COMPARISON: Chest x-ray 07/25/2020. CT chest 07/17/2020. FINDINGS: Cardiovascular and mediastinum: Sternotomy and pacemaker with multipleleads. Heart size and vasculature are normal in caliber and appearance.Mediastinum is within normal limits. Lungs and pleural spaces: Chronic elevation right hemidiaphragm. Softinfiltrates at both lung bases some of which represents chronic fibrosisand atelectasis as noted on previous chest x-ray and CT. No pleuraleffusion or pneumothorax Bones and soft tissues: Bony structures difficult to evaluate IMPRESSION: Soft infiltrates at both lung bases similar to previous studies. Dictated by Carlos Cowart MD @ 08/15/2023 6:38:52 AM (Electronically Signed) Bre Pham MD GENERAL IMAGING * ANTI HCV [94415.2] (03/13/2018 12:00 PM HOSPITALITY COORDINATOR) HEPATITIS C ANTIBODY Non-React lauryn Non-React lauryn 03/14/2018 1:50 AM HOSPITALITY COORDINATOR [facility] Comment:Antibodies to HCV no t detected; does not exclude the possibility of exposure to HCV. Blood BLOOD SPECIMEN / Unknown Venipuncture / Unknown 03/13/2018 12:00 PM HOSPITALITY COORDINATOR 03/13/2018 12:06 PM HOSPITALITY COORDINATOR Bre Pham MD SEND OUTS [facility] [address] [place] [address], [place] from Last 3 Months or Most Recently Relevant to Health Maintenance Advance Directives Documents on File Type Date Recorded Patient Picker/Puller Expl anation POLST 02/13/2023 2:09 PM 01/30/23 POLST 01/13/2023 12:00 AM Healthcare Directive 06/06/2008 HEALTH CARE DIRECTIVE, [facility], [facility], 05/19/2008 * Full Code (Latest Code Status on File) Date Activated Date Inactivated Comments 09/02/2023 12:51 AM 09/04/2023 6:26 PM Question Answer Comments Code Status Discussion: Reviewed Preferences * Full Code Date Activated Date Inactivated Comments 08/30/2023 9:01 AM 09/01/2023 4:57 PM Question Answer Comments Code Status Discussion: Unable to Assess Preferences, Provider to review later * Full Code Date Activated Date Inactivated Comments 07/04/2023 10:25 AM 07/04/2023 3:47 PM Question Answer Comments Code Status Discussion: Discussed * Full Code Date Activated Date Inactivated Comments 12/19/2022 10:07 AM 12/20/2022 10:46 PM Question Answer Comments Code Status Discussion: Unable to Assess Preferences, Provider to review later * Full Code Date Activated Date Inactivated Comments 07/24/2020 2:08 PM 07/25/2020 4:06 PM Question Answer Comments Code Status Discussion: Not Discussed Care Teams Lifter/Driver Relationship Specialty Start Date End Date Bre Pham MD [address] [place] [address] [place] [address] PCP - General 07/27/05 Иван Pena MD [address] [facility] [address] [place] [address] Pulmonary Medicine 05/03/23 Angel Bains MD [address] [facility] [address] [place] [address] Consulting Physician Nephrology 10/16/23
--- OUTSIDE RECORDS SUMMARY | 2023-10-25 20:26 | XMS_ITS | Encounter Summary ---
Author Name [facility] [place] [facility] [place] Address [address] [place] [address] Care Team Providers Care Associate Manager Affiliate Marketing Name Role Phone ZOLTAN SYED Primary Care [...] Name Patient's Relationship to Policy Hawkins [employer]ICA [facility] (WNR) MEDICARE ADVANTAGE [facility] (WNR) Apr 10, 2021 [id number] [phone] KAT NAZARIO PATIENT MEDICARE (WNR) MEDICARE (M) PART A May 11, 1991 PART A [id number] [facility] [phone] KAT NAZARIO PATIENT MEDICARE (WNR) MEDICARE (M) PART B May 11, 1991 PART B [id number] KAT NAZARIODiana PATIENT Selected Encounter This section includes the information on record at CT for the Encounter. Date/Time Encounter Type Encounter Description Reason Provider Source Jul 05, 2023 09:30 AM OFFICE O/P EST SF 10 [facility] - IND ICD-10-CM F43.12 Post-traumatic stress disorder, chronic CHASE ESPINO P IHEmeli Encounter Template Text not used by CT Assessments - Encounter Diagnoses This section includes the primary and secondary diagnoses documented for the Encounter. Date/Time Primary/Secondary Diagnosis Diagnosis Name Provider Source Jul 05, 2023 09:56 AM PRIMARY Post-traumatic stress disorder, chronic CHASE ESPINO [facility] Plan of Treatment: Future Appointments (+ 6 months) and Future Tests (+/- 45 days) The Plan of Treatment section includes future care activities for the [facility] This section includes future appointments and future orders which are active, pending or scheduled. Future Appointments This section includes appointments that were scheduled to occur 6 months from the date of the Encounter, up to a maximum of 20 appointments. The data comes from all [place] treatment facilities. Appointment Date/Time Appointment Type Appointme nt Facility Name Jul 12, 2023 02:00 PM AMBULATORY - SURGERY [facility] Jul 12, 2023 03:00 PM AMBULATORY - PSYCHIATRY [facility] Sep 13, 2023 10:00 AM AMBULATORY - PSYCHIATRY [facility] Nov 01, 2023 09:30 AM AMBULATORY - PSYCHIATRY [facility] Nov 29, 2023 10:00 AM AMBULATORY - PSYCHIATRY [facility] Social History: Smoking Status (Most current) and Tobacco Use (All prior to encounter date) This section includes the most current, and the historical, smoking and tobacco- related health factors from the [place] facility where the Encounter took place. Current Smoking Status This section includes the most current smoking, or tobacco-related health factor, from the [place] facility where the Encounter took place. Date/Time Current Smoking Status Comment Facil ity Mar 22, 2023 03:00 PM VA-TOBACCO QUIT 15 YRS OR MORE [facility] Tobacco Use History This section includes a history of the smoking, or tobacco-related health factors, that were collected on or before the date of the Encounter. The data comes from the [place] facility where the Encounter took place. Date/Time Smoking Status/Tobacco Use Comment F acility Mar 22, 2023 03:00 PM VA-TOBACCO QUIT 15 YRS OR MORE [facility] Mar 25, 2022 12:45 PM VA-TOBACCO FORMER USER [facility] Mar 25, 2022 12:45 PM VA-TOBACCO QUIT 15 YRS OR MORE [facility] Mar 18, 2021 10:00 AM VA-TOBACCO FORMER USER [facility] Mar 18, 2021 10:00 AM VA-TOBACCO QUIT 15 YRS OR MORE [facility] Oct 16, 2018 11:06 AM VA-TOBACCO FORMER USER [facility] Oct 16, 2018 11:06 AM VA-TOBACCO QUIT 15 YRS OR MORE [facility] Sep 08, 2017 10:30 AM FORMER TOBACCO USER 7Y OR GREATE R [facility] September 02, 2016 10:04 AM FORMER TOBACCO USER 7Y OR GREATE R [facility] August 27, 2015 12:32 AM FORMER TOBACCO USER 7Y OR GREATE R [facility] August 28, 2014 08:53 AM FORMER TOBACCO USER 7Y OR GREATE R [facility] Sep 25, 2013 09:48 AM FORMER TOBACCO USER 7Y OR GREATE R [facility] Apr 25, 2006 10:07 AM FORMER TOBACCO USER 7Y OR GREATE R [facility] Advance Directives: All historical and current Section Date Range: From patient's date of to the date document was created. This section includes ALL of a patient's completed or amended CT Advance and Rescinded Directives. The entries below indicate that a directive exists for the patient, but an actual copy is not included with this document. The data comes from all CT facilities. Date Advance Directives Provider Source Apr 20, 2004 ADVANCE DIRECTIVE BABITA DIGGS [facility] Encounter Notes: All associated encounter notes This section contains the clinical notes associated to the Encounter. Date/Time Encounter Note(s) Provider Source Jul 05, 2023 09:59 AM ADDENDUM: LOCAL TITLE: Addendum STANDARD TITLE: ADDENDUM DATE OF NOTE: JUL 05, 2023@09:59:48 ENTRY DATE: JUL 05, 2023@09:59:49 AUTHOR: ALICJA ESPINO EXP COSIGNER: URGENCY: STATUS: COMPLETED Patient states he received a letter from [place] [facility] re: a sleep study and a number to call, states he called back but didn't receive a return call - if you are able to pass along message to facilitate call back, he would appreciate it. Thanks! /francisco/ ALICJA ESPINO MD PSYCHIATRIST Signed: 07/05/2023 10:01 Receipt Acknowledged By: 07/10/2023 15:17 /francisco/ JUANA BARNES RN REGISTERED NURSE --- Original Document --- 07/05/23 PSYCHIATRIC EVALUATION & MANAGEMENT: Medication management and supportive psychotherapy appointment Video visit; pt consented to format and confirmed location Time spent: 14 minutes Supportive Psychotherapy: 12 minutes ID: [place] is a male with a history of PTSD who has been seen at the [facility] for many years. Subjective:patient is stable, denies any decompensation, no concerning side effects from zolpidem, denies any sleepwalking, denies any falls. He feels good with regimen and wishing to continue, PTSD symptoms are manageable and he is used to dealing with them. He remains connected to [facility] Laguer[facility]. Strongly denies any SI/intent/plan. Running out of bupropion and zolpidem, we will expedite. Also asking for me to relay a message to sleep clinic as he states he received a letter from them and call back, but has not heard from them. Medications: Active Outpatient Medications (including Supplies): Active [...] Clear and fluent. Mood: I am doing great. Affect: Nonlabile. Thought process: Linear. Thought content: No evidence of SI/HI/AH/VH. No delusions or paranoia elicited. Cognition: Appropriate. Insight: Appropriate. Judgment: Appropriate Risk assessment: (Unchanged from prior) Patient with history of PTSD, prior suicide attempt years ago via overdose, history of alcohol abuse in the past. However, no evidence of suicidal ideation, intent, or plan, patient remains active in [facility], has remained sober for many years. [...] in full sustained remission Assessment and plan: is a male with a history of PTSD and alcohol dependence in full sustained remission who presents for routine follow up appointment. Patient continues to be stable with regimen, no evidence of any problems or abuse of sedative-hypnotic, we will expedite bupropion and zolpidem due to patient running short. Amenable for 4-month follow-up. Plan: -Continue bupropion 150 mg sustained action twice daily - Continue Buspar, Zolpidem, as prescribed above - Patient to continue therapy with SHELBIE Raza - Follow-up in 4 months via video - Patient has clinic contact information if experiencing decompensation. /es/ ALICJA ESPINO MD PSYCHIATRIST Signed: 07/05/2023 09:57 ALICJA SEPINO [facility] Jul 05, 2023 09:33 AM PSYCHIATRY E & M N OTE: LOCAL TITLE: PSYCHIATRIC EVALUATION & MANAGEMENT STANDARD TITLE: PSYCHIATRY E & M NOTE DATE OF NOTE: JUL 05, 2023@09:33 ENTRY DATE: JUL 05, 2023@09:33:08 AUTHOR: ALICJA ESPINO EXP COSIGNER: URGENCY: STATUS: COMPLETED PSYCHIATRIC EVALUATION & MANAGEMENT Has ADDENDA Medication management and supportive psychotherapy appointment Video visit; pt consented to format and confirmed location Time spent: 14 minutes Supportive Psychotherapy: 12 minutes ID: [place]f is a male with a history of PTSD who has been seen at the [facility] for many years. Subjective:patient is stable, denies any decompensation, no concerning side effects from zolpidem, denies any sleepwalking, denies any falls. He feels good with regimen and wishing to continue, PTSD symptoms are manageable and he is used to dealing with them. He remains connected to [facility] Lag[facility]. Strongly denies any SI/intent/plan. Running out of bupropion and zolpidem, we will expedite. Also asking for me to relay a message to sleep clinic as he states he received a letter from them and call back, but has not heard from them. Medications: Active Outpatient Medications (including Supplies): Active [...] Clear and fluent. Mood: I am doing great. Affect: Nonlabile. Thought process: Linear. Thought content: No evidence of SI/HI/AH/VH. No delusions or paranoia elicited. Cognition: Appropriate. Insight: Appropriate. Judgment: Appropriate Risk assessment: (Unchanged from prior) Patient with history of PTSD, prior suicide attempt years ago via overdose, history of alcohol abuse in the past. However, no evidence of suicidal ideation, intent, or plan, patient remains active in [facility], has remained sober for many years. [...] in full sustained remission Assessment and plan: is a male with a history of PTSD and alcohol dependence in full sustained remission who presents for routine follow up appointment. Patient continues to be stable with regimen, no evidence of any problems or abuse of sedative-hypnotic, we will expedite bupropion and zolpidem due to patient running short. Amenable for 4-month follow-up. Plan: -Continue bupropion 150 mg sustained action twice daily - Continue Buspar, Zolpidem, as prescribed above - Patient to continue therapy with SHELBIE Raza - Follow-up in 4 months via video - Patient has clinic contact information if experiencing decompensation. /francisco/ ALICJA ESPINO MD PSYCHIATRIST Signed: 07/05/2023 09:57 07/05/2023 ADDENDUM STATUS: COMPLETED Patient states he received a letter from [place] [facility] re: a sleep study and a number to call, states he called back but didn't receive a return call - if you are able to pass along message to facilitate call back, he would appreciate it. Thanks! /francisco/ ALICJA ESPINO MD PSYCHIATRIST Signed: 07/05/2023 10:01 Receipt Acknowledged By: * AWAITING SIGNATURE * JUANA BARNES RASIKA P [facility]
--- OUTSIDE RECORDS SUMMARY | 2023-10-25 20:26 | XMS_ITS | Clinical Summary ---
Author Organization [facility] [place] Address [address] [place] [address] Phone Care Team Providers Care Breaker Machine Operator Name Role Phone Bre Pham MD Primary Care Provider [phone] Allergies Active Allergy Reactions Criticality Noted Date Comments Lisinopril Other (see comments) 07/14/2010 Medications Medication Sig Dispensed Refills Start Date End Date Status brimonidine-timolo l (Combigan) 0.2-0.5 % ophthalmic solution Administer 1 drop into affected eye(s) in the morning and 1 drop in the evening. 11/12/2020 Active fluticasone (FLONASE) 50 MCG/ACT nasal spray Administer 2 sprays into affected nostril(s) if needed 02/10/2021 Active senna-docusate (PERICOLACE) 8.6-50 MG per tablet Take 1-4 tablets by mouth 2 (two) times a day if needed 12/20/2022 Active zolpidem (AMBIEN) 10 MG tablet Take 10 mg by mouth at bed time Active spironolactone (ALDACTONE) 25 MG tablet Take 25 mg by mouth 1 (one) time each day 12/21/2022 Active furosemide (LASIX) 40 MG tablet Take 40 mg by mouth in the morning and 40 mg in the evening. 03/23/2020 Active sacubitril-valsart an (Entresto) 49-51 MG per tablet Take 1 tablet by mouth in the morning and 1 tablet in the evening. 09/20/2022 Active carvedilol (COREG) 12.5 MG tablet Take 1 tablet by mouth in the morning and 1 tablet in the evening. Take with meals. Active rosuvastatin (CRESTOR) 20 MG tablet Take 1 tablet by mouth at bed time Active Empagliflozin (Jardiance) 10 MG tablet Take 1 tablet by mouth 1 (one) time each day Active primidone (MYSOLINE) 50 MG tablet Take 50 mg by mouth in the morning and 50 mg in the evening. 11/18/2022 Active warfarin (COUMADIN) 5 MG tablet Take 5 mg by mouth Monday, , Monday 5 mg (1 tab), Monday, Monday, Monday, Monday 2.5 mg (0.5 tabs) 01/03/2023 Active albuterol HFA (PROVENTIL HFA;VENTOLIN HFA) 108 (90 Base) MCG/ACT inhaler Inhale 2 puffs 4 (four) times a day if needed 08/24/2010 Active busPIRone (BUSPAR) 10 MG tablet Take 20 mg by mouth in the morning and 20 mg in the evening. Active acetaminophen (TYLENOL) 500 MG tablet Take 1,000 mg by mouth if needed 12/20/2022 Active buPROPion SR (WELLBUTRIN SR) 150 MG 12 hr tablet Take 150 mg by mouth in the morning and 150 mg in the evening. 03/13/2019 Active omeprazole (PriLOSEC) [address] capsule Take 20 mg by mouth in the morning. 08/27/2010 Active Thiamine Mononitrate 100 MG tablet Take 100 mg by mouth in the morning. Vitamin B1 tab. 07/13/2022 Active cholecalciferol (VITAMIN D-3) 25 MCG (1000 UT) capsule Take 1,000 Units by mouth in the morning. Active amoxicillin (AMOXIL) 500 MG tablet Take 4 capsules by mouth 1 (one) time if needed Take 4 capsule by mouth 1 hour prior to any dental procedure, including routine cleaning Active Tiotropium Buchanan-Olodaterol 2.5-2.5 MCG/ACT aerosol solution Inhale 2 puffs if needed Active latanoprost (XALATAN) 0.005 % ophthalmic solution Administer 1 drop into both eyes 1 (one) time each day 08/08/2023 Active COD LIVER OIL PO Take 1 tablet by mouth 1 (one) time each day Active sacubitril-valsart an (Entresto) 24-26 MG per tablet Take 1 tablet by mouth in the morning and 1 tablet in the evening. 10/17/2023 Discontinued (Med List Maintenance) [place]-3 Fatty Acids (EQL [place] 3 Fish Oil) 1000 MG capsule Take 2 capsules by mouth 1 (one) time each day 10/17/2023 Discontinued (Med List Maintenance) Active Problems Problem Noted Date Diagnosed Date Hyperkalemia 10/14/2023 Last Assessment & Plan: As noted in the narrative with hyperkalemia in August. Renal lactone restarted on 21 September but follow-up BMP has not been performed. Will plan for this follow-up blood work later this week. Stage 3a chronic kidney disease 04/16/2023 Overview: Erratic value stretching between 0.9-1.4 range from 2009-January 2013. There are no urinary records. CT of the chest July 2020: Normal adrenal glands. Probable renal parenchymal thinning incompletely visualized. Suspect underlying CKD from small vessel disease, hypertensive nephrosclerosis, and possible physiologic impact from cardiorenal syndrome. Certainly more erratic GFR as result of combination ARB and aldosterone blockade. With respect to future cares, he would refuse long-term dialysis if/when indicated. On the other hand he would consent to dialysis on an emergency basis if it meant that there was a chance for his kidneys to return. Last Assessment & Plan: Stable. Planning to repeat blood work later this week when he has his INR done to assure stability and both potassium and creatinine. Continue current medications as ordered at this time. Obesity 04/16/2023 Elevated prostate specific antigen (PSA) 024 Peripheral vascular disease 04/16/2023 Overview: Bilateral arterial Dopplers from November 2022: Right lower extremity MIRELLA 0.65 and left 0.53 Chronic systolic congestive heart failure 2023 Overview: Echocardiogram June 2021: EF 40-45% with grade 2 pattern of LV diastolic dysfunction with no significant valve disease and aortic valve sclerosis. Ischemic cardiomyopathy (status post CABG in 1997). Status post PPM (2017) with upgrade to biventricular pacemaker (March 2020) Last Assessment & Plan: Stable. Well compensated. Continue current medication regimen including Entresto, spironolactone, and loop diuretic. Deep venous thrombosis 04/16/2023 Overview: Left lower extremity, recurrent, historical, DVT free with anticoagulation. Pulmonary fibrosis 04/16/2023 Overview: [place] to be related to agent orange exposure Adult obstructive sleep apnea 04/16/2023 Overview: Nightly CPAP Hypertensive chronic kidney disease with stage 1 through stage 4 chronic kidney disease, or unspecified chronic kidney disease 11/27/2009 03/08/2023 Last Assessment & Plan: Very well-managed overall. Confirms systolic blood pressures ranging in the 1 15-125 range at his regular INR draws. Resolved Problems Problem Noted Date Diagnosed Date Resolved Date Varicose veins of bilateral lower extremities 04/16/19 24 04/17/2023 Encounters Date Type Department Care Team Description 10/17/2023 11:00 AM EDT Office Visit [facility] [address] [place] [address] Anegl Bains MD Stage 3a chronic kidney disease (HCC) (Primary Dx); Hyperkalemia; Chronic systolic congestive heart failure (HCC) 09/22/2023 Office Communication [facility] [address] [place] [address] Sylwia Gomez 08/03/2023 Office Communication [facility] [address] [place] [address] Angel Bains MD 08/03/2023 Office Communication [facility] [address] [place] [address] Angel Bains MD from Last 3 Months Immunizations Name Administration Dates Next Due Influenza Vaccine, Quadrival ent, Adjuvanted 01/25/2023,12/27/2021,01/15/2021, 020 Moderna Sars-cov-2 (Covid-19 ) Vaccine, Mrna, Dayday Protein 01/25/2023 Pfizer SARS-COV-2 07/16/2021 Pfizer SARS-CoV-2 Bivalent 3 0 mcg/0.3 mL 12/29/2021 Family History Medical History Relation Comments Cancer Father No Known Problems Maternal Grandfather No Known Problems Maternal Grandmother Arthritis Mother Hypertension Mother Macular degeneration Mother No Known Problems Mother's Sister No Known Problems Paternal Grandfather No Known Problems Paternal Grandmother No Known Problems Sister 1 Cancer Sister 2 Relation Status Comments Father Maternal Grandfather Maternal Grandmother Mother Mother's Sister Paternal Grandfather Paternal Grandmother Sister 1 Alive Sister 2 Social History Tobacco Use Types Packs/Day Years Used Date Smoking Tobacco: Former Cigarettes 1 29 04 977 - 1996 Smokeless Tobacco: Never Tobacco Cessation:Counseling Given: Not Answered Alcohol Use Standard Drinks/Week Comments Not Currently 0 (1 standard drink = 0.6 oz pure alcohol) Stopped drinking 31 years ago Sex and Gender Information Value Date Recorded Sex Assigned at Not on file Gender Identity Not on file Sexual Orientation Not on file Last Filed Vital Signs Vital Sign Reading [...] Mass Index 41.98 10/17/2023 10:39 AM CDT Plan of Treatment Health Maintenance Due Date Last Done Comments Pneumococcal Vaccine: 65+ Years (1 of 2 - PCV) 1951 Influenza Vaccine (#1) 2023 , 12/27/2021, 01/15/2021, Additional history exists Hepatitis B Vaccine Aged Out No longe r eligible based on patient's age to complete this topic Care Teams Breaker Machine Operator Relationship Specialty Start Date End Date Bre Pham MD [address] [facility] [place] [id number] PCP - General Internal Medicine 04/16/23
--- OUTSIDE RECORDS SUMMARY | 2023-10-25 20:27 | XMS_ITS | Encounter Summary ---
Author Name [facility] Organization [facility] Address [address] [place] [address] Care Team Providers Care Supersonic Engineer Name Role Phone ZOLTAN SYED Primary Care [...] Name Patient's Relationship to Policy Hawkins [employer] [facility] (WNR) MEDICARE ADVANTAGE [facility] (WNR) Apr 10, 2021 [id number] KAT BOCANEGRA PATIENT MEDICARE (WNR) MEDICARE (M) PART A May 11, [id number] [facility] [phone] KAT BOCANEGRA PATIENT MEDICARE (WNR) MEDICARE (M) PART B May 11, 1991 PART B [id number] [phone] KAT BOCANEGRADiana PATIENT Selected Encounter This section includes the information on record at [place] for the Encounter. Date/Time Encounter Type Encounter Description Reason Provider Source Sep 13, 2023 10:00 AM PSYTX W PT 45 MINUTES [facility] - IND ICD-10-CM F43.12 Post-traumatic stress disorder, chronic CELIA HILL Encounter Template Text not used by [place] Assessments - Encounter Diagnoses This section includes the primary and secondary diagnoses documented for the Encounter. Date/Time Primary/Secondary Diagnosis Diagnosis Name Provider Source Sep 15, 2023 03:19 PM PRIMARY Post-traumatic stress disorder, chronic CELIA HILL [facility] Plan of Treatment: Future Appointments (+ 6 months) and Future Tests (+/- 45 days) The Plan of Treatment section includes future care activities for the patient from all [facility]. This section includes future appointments and future orders which are active, pending or scheduled. Future Appointments This section includes appointments that were scheduled to occur 6 months from the date of the Encounter, up to a maximum of 20 appointments. The data comes from all [facility] facilities. Appointment Date/Time Appointment Type Appointme nt Facility Name Nov 01, 2023 09:30 AM AMBULATORY - PSYCHIATRY [facility] Nov 29, 2023 10:00 AM AMBULATORY - PSYCHIATRY [facility] Social History: Smoking Status (Most [...] 22, 2023 03:00 PM VA-TOBACCO FORMER USER [facility] Tobacco Use History This section includes a history of the smoking, or tobacco-related health factors, that were collected on or before the date of the Encounter. The data comes from the [place] facility where the Encounter took place. Date/Time Smoking Status/Tobacco Use Comment F acility Mar 22, 2023 03:00 PM VA-TOBACCO QUIT 15 YRS OR MORE [facility] Mar 25, 2022 12:45 PM VA-TOBACCO FORMER USER [facility] Mar 25, 2022 12:45 PM VA-TOBACCO QUIT 15 YRS OR MORE [facility] Mar 18, 2021 10:00 AM VA-TOBACCO FORMER USER [facility] Mar 18, 2021 10:00 AM VA-TOBACCO QUIT 15 YRS OR MORE [facility] Oct 16, 2018 11:06 AM VA-TOBACCO FORMER USER [facility] Oct 16, 2018 11:06 AM VA-TOBACCO QUIT 15 YRS OR MORE [facility] Sep 08, 2017 10:30 AM FORMER TOBACCO USER 7Y OR GREATE R [facility] September 02, 2016 10:04 AM FORMER TOBACCO USER 7Y OR GREATE R [facility] August 27, 2015 12:32 AM FORMER TOBACCO USER 7Y OR JAKEE R [facility] August 28, 2014 08:53 AM FORMER TOBACCO USER 7Y OR JAKEE R [facility] Sep 25, 2013 09:48 AM FORMER TOBACCO USER 7Y OR JAKEE R [facility] Apr 25, 2006 10:07 AM FORMER TOBACCO USER 7Y OR TASNEEM R [facility] Advance Directives: All historical and current Section [...] Apr 20, 2004 ADVANCE DIRECTIVE BABITA DIGGS [facility] Encounter Notes: All associated encounter notes This section contains the clinical notes associated to the Encounter. Date/Time Encounter Note(s) Provider Source Sep 13, 2023 10:00 AM MENTAL HEALTH NOTE : LOCAL TITLE: MH PROGRESS NOTE STANDARD TITLE: MENTAL HEALTH NOTE DATE OF NOTE: SEP 13, 2023@10:00 ENTRY DATE: SEP 15, 2023@14:48:37 AUTHOR: CELIA HILLIGNER: URGENCY: STATUS: COMPLETED S/0 Met with Mr. Bocanegra for 45 minutes by [facility] to provide individual therapy and treatment coordination assistance. He was pleasant and engaging in session, appearing well organized, exhibiting good range of affect, while endorsing a fair overall mood. He does not report any thoughts of harming himself/others and no significant mood swings over the past few months, but does acknowledge some significant medical issues being prominent which has led to some stress and frustration. Since we last met, he had his second knee replacement surgery (specifically on August 29) and though the surgery went well, there were accompanying factors which resulted in return hospitalization in the community (specifically elevated potassium levels, low blood pressure issues). He has felt much better in recent days, noting his appreciation for weekly longterm care visits as well as physical therapy 3 times a week. His mood has improved over the past week as has his overall sleep. He is currently on 24-hour oxygen, but that would likely be short-term as will his need for using a walker for ambulation (especially as he begins to build his strength and more steadiness going forward). He stated that he is over the hump now, noting he is no longer experiencing significant irritability, while also agreeing with database report writer as to the importance of utilizing stress reduction strategies that we have reviewed in past sessions and relaxation strategies that have been helpful over the years. He reports excellent support from his [place] at home, though acknowledges he looks forward to getting out of the house and being more social at the local [facility] (where the 2 of them were involved in walking club and other exercise programs), while also going to tenriism services on a regular basis. Praised for his efforts in his MH and CD recovery. Encouraged him to continue to adhere to his prescribed medications and to contact database report writer should he need any additional supportive therapy prior to our next scheduled appointment. He was appreciative of support and feedback offered during the session. Suicide Risk Assessment: Risk factors- Current psychiatric diagnosis, history of SI and suicide attempt by overdose several decades ago (nothing since), history of alcohol dependence (many yrs sober) Protective factors- Sense of responsibility to family (, [place]), no SI for many years, excellent support system at home and in the community. positive therapeutic relationship, medication and MH tx adherent , spirituality Low acute risk Low chronic risk Goal: To maintain overall MH stability and effective management of mood symptoms (jorge. anger), while [id number] sobriety A/ PTSD, Mood disorder, symptoms under good control. ETOH dependence in full sustained remission. P/ Will continue to provide individual therapy and treatment coordination assistance every 60-90 days for scheduled outpatient appointments and as needed/requested by or staff. /francisco/ CELIA Rivera CLINICAL ENGINEERING GROUP LEADER Signed: 09/15/2023 15:19 CELIA HILL [facility] Sep 13, 2023 10:00 AM MENTAL HEALTH NOE TMENT PLAN NOTE: LOCAL TITLE: MH TREATMENT PLAN STANDARD TITLE: MENTAL HEALTH TREATMENT PLAN NOTE DATE OF NOTE: SEP 13, 2023@10:00 ENTRY DATE: SEP 15, 2023@15:20:34 AUTHOR: CELIA HILL EXP COSIGNER: URGENCY: STATUS: COMPLETED TREATMENT PLAN TYPE: Update MENTAL HEALTH TEAM ASSIGNMENT: Team Z MENTAL HEALTH MEDICAL TECHNOLOGIST CHIEF (MHTC): SHELBIE Raza TEAM MEMBERS & OTHER COLLABORATORS CONTRIBUTING TO THE 'S CARE AND TREATMENT PLAN: Heidi León MD, Abiel Fuller RN PARTICIPATION IN TREATMENT PLANNING: Discussed over VVC and agreed to plan DIAGNOSIS: Post-traumatic stress disorder ICD-10-CM F43.12 SUICIDE RISK ASSESSMENT: Acute low Chronic low Patient with history of PTSD, prior suicide attempt many years ago via overdose, history of alcohol abuse in the past (sober many years). However, no evidence of suicidal ideation, intent, or plan, patient remains active in community, has remained sober for many years. He is able to recognize his triggers and address them by seeking help. In a stable relationship, housing stable, patient engaged in many activities which he enjoys. As such the patient is deemed to be at low- risk for imminent self- harm. IDENTIFIED PROBLEMS: History of mood disturbances/anger, Trauma/nightmares STRENGTHS: Life satisfaction, excellent family/social support (lives with girlfriend), positive therapeutic relationship, longtime sobriety BARRIERS: History of issues with anger, history of trauma GOAL #1: To maintain overall MH stability and effective management of mood symptoms (jorge. anger), while maintaining longtime sobriety INTERVENTION(S)/OBJECTIVE METHODS TO ACCOMPLISH GOAL #1: Individual Psychotherapy with: SHELBIE Raza The therapist will assess symptoms at each visit and provide psychoeducation regarding diagnoses and specific interventional strategies. The agrees to ask questions if they have concerns or do not fully understand content or expectations of therapy. [place] will regularly attend appointments. The frequency of individual appointments will be reassessed by the provider and with each appointment and documented in the progress note. Clinician will provide information regarding available VA MH treatment options. Overall MH treatment needs will be periodically assessed at visits. will be encouraged to involve supportive people (e.g., family/friends) in their treatment as applicable. [place] will contact provider as needed for nonemergent MH concerns between appointments; responsible staff will return contact to in timely manner. [place] will use emergency MH options as agreed upon with provider (911, Emergency Department, [facility] Crisis Line). Different evidence-based treatment options were considered and discussed with as part of current treatment planning. CBT is modality provided Psychiatric Evaluation & Medication Management with: Heidi León MD [place] will attend periodic MH appointments with Licensed Independent Provider and/final inspector balance wheel for monitoring effectiveness of medications, assessing for side-effects, reviewing relevant labs, safety assessments, and screening exams. The frequency of appointments will be reassessed by staff and with each visit and documented in the progress note. Overall MH treatment needs will be periodically reassessed at visits. Staff will provide education regarding conditions, medications, and treatment options. The agrees to ask questions if they have concerns or do not fully understand. Staff will provide supportive therapy to optimize wellness, including education related to symptom management skills, life coping skills, general health/wellness, safety planning and the role of medications. [place] will be encouraged to involve supportive people (e.g., family/friends) in their treatment as applicable will contact staff as needed for nonemergent MH concerns between appointments; responsible staff will return contact to in timely manner. will use emergency MH options as agreed upon with provider (911, Emergency Department, [facility] Crisis Line). Treatment Coordination/Case Management/Supportive Therapy: SHELBIE Raza Staff will provide Supportive Therapy (Infrequent, support focused meetings) to optimize wellness, including education related to symptom management skills, life coping skills and safety planning. The staff will provide information about Community and VA Resource education as indicated. RN appointments as needed for mental health nursing assessment, symptom monitoring, counseling, and education. Staff will assess and provide Health and Wellness education as indicated, including smoking cessation, sleep hygiene, coping skills, symptom management skills, ADL/IADL skills, Diet/Exercise, Integrative Health options (Rowdy Chi, yoga, acupuncture, mindfulness, aroma therapy) The frequency of appointments will be reassessed by the provider and with each visit and documented in the progress note. [place] will contact staff as needed for nonemergent MH concerns between appointments; responsible staff will return contact to in timely manner. will use emergency MH options as agreed upon with provider (911, Emergency Department, [facility] Crisis Line). PROGRESS TOWARD GOAL #1 WILL BE MEASURED BY: [place] self-report, provider(s) observations in progress notes, medication refill history, regular attendance at MH appointments. DATE OF NEXT TREATMENT PLAN REVIEW: Mar 14, 2024 [facility] Treatment Plan Update: Patient had [facility] Treatment Plan updated at this encounter. /francisco/ CELIA BlancoSZhenWZhen CLINICAL ENGINEERING GROUP LEADER Signed: 09/15/2023 15:23 CELIA HILL [facility]
--- OUTSIDE RECORDS SUMMARY | 2023-10-25 20:27 | XMS_ITS | Encounter Summary ---
Author Name [facility] [place] [facility] [place] Address [address] [place] [address] Care Team Providers Care Clinic Assistant Name Role Phone ZOLTAN SYED Primary Care [...] Name Patient's Relationship to Policy Hawkins MEDICA [facility] (WNR) MEDICARE ADVANTAGE [facility] (WNR) Apr 10, 2021 [id number] [phone] ARAVINDAUGUST OGDiana PATIENT MEDICARE (WNR) MEDICARE (M) PART A May 11, 1991 PART A [id number] [facility] [phone] KAT NAZARIO PATIENT MEDICARE (WNR) MEDICARE (M) PART B May 11, 1989 PART B [id number] ARAVINDKAT MIGUE PATIENT Selected Encounter This section includes the information on record at [place] for the Encounter. Date/Time Encounter Type Encounter Description Reason Provider Source August 18, 2023 02:16 PM HC PRO PHONE CALL 11-20 MIN TELEPHONE/MEDICIN E ICD-10-CM G47.30 Sleep apnea, unspecified DILLE,SHIRA S IHE Encounter Template Text not used by [place] Assessments - Encounter Diagnoses This section includes the primary and secondary diagnoses documented for the Encounter. Date/Time Primary/Secondary Diagnosis Diagnosis Name Provider Source August 18, 2023 02:16 PM PRIMARY Sleep apnea, unspecified DILLE,SHIRA S [facility] Plan of Treatment: Future Appointments (+ 6 months) and Future Tests (+/- 45 days) The Plan of Treatment section includes future care activities for the patient from all [place] [facility]. This section includes future appointments and future orders which are active, pending or scheduled. Future Appointments This section includes appointments that were scheduled to occur 6 months from the date of the Encounter, up to a maximum of 20 appointments. The data comes from all [facility] facilities. Appointment Date/Time Appointment Type Appointme nt Facility Name Sep 13, 2023 10:00 AM AMBULATORY - PSYCHIATRY [facility] Nov 01, 2023 09:30 AM AMBULATORY - PSYCHIATRY [facility] Nov 29, 2023 10:00 AM AMBULATORY - PSYCHIATRY [facility] Social History: Smoking Status (Most current) and Tobacco Use (All prior to encounter date) This section includes the most current, and the historical, smoking and tobacco- related health factors from the [place] facility where the Encounter took place. Current Smoking Status This section includes the most current smoking, or tobacco-related health factor, from the [place] facility where the Encounter took place. Date/Time Current Smoking Status Comment Lon ity Mar 22, 2023 03:00 PM VA-TOBACCO FORMER USER [facility] Tobacco Use History This section includes a history of the smoking, or tobacco-related health factors, that were collected on or before the date of the Encounter. The data comes from the [place] facility where the Encounter took place. Date/Time Smoking Status/Tobacco Use Comment F acility Mar 22, 2023 03:00 PM VA-TOBACCO QUIT [address] [facility] Mar 25, 2022 12:45 PM VA-TOBACCO FORMER USER [facility] Mar 25, 2022 12:45 PM VA-TOBACCO QUIT [address] [facility] Mar 18, 2021 10:00 AM VA-TOBACCO FORMER USER [facility] Mar 18, 2021 10:00 AM [place]-TOBACCO QUIT [address] [facility] Oct 16, 2018 11:06 AM VA-TOBACCO FORMER USER [facility] Oct 16, 2018 11:06 AM VA-TOBACCO QUIT [address] [facility] Sep 08, 2017 10:30 AM FORMER TOBACCO USER 7Y OR JAKEE R [facility] September 02, 2016 10:04 AM FORMER TOBACCO USER 7Y OR TASNEEM R [facility] August 27, 2015 12:32 AM FORMER TOBACCO USER 7Y OR TASNEEM R [facility] August 28, 2014 08:53 AM FORMER TOBACCO USER 7Y OR JAKEE R [facility] Sep 25, 2013 09:48 AM FORMER TOBACCO USER 7Y OR TASNEEM R [facility] Apr 25, 2006 10:07 AM FORMER TOBACCO USER 7 OR [facility] Advance Directives: All historical and current Section Date Range: From patient's date of to the date document was created. This section includes ALL of a patient's completed or amended [place] Advance and Rescinded Directives. The entries below indicate that a directive exists for the patient, but an actual copy is not included with this document. The data comes from all [place] facilities. Date Advance Directives Provider Source Apr 20, [address] AD[address] [facility] Encounter Notes: All associated encounter notes This section contains the clinical notes associated to the Encounter. Date/Time Encounter Note(s) Provider Source August 18, 2023 02:16 PM SLEEP MEDICINE NOT E: LOCAL TITLE: SLEEP MEDICINE NOTE STANDARD TITLE: SLEEP MEDICINE NOTE DATE OF NOTE: AUGUST 18, 2023@14:16 ENTRY DATE: AUGUST 18, 2023@14:16:30 AUTHOR: SHIRA ROUSE COSIGNER: URGENCY: STATUS: COMPLETED Compliance Summary Report DreamStation BiPAP AVAPS 30 [id number] ([id number]) [id number]: 04/20/2023 - 05/19/2023 09/13/2018 Care Team [facility] [address] [place] [address] Compliance Summary Initial Compliance Status Compliant % Days with Usage >= 4 Hours % Days Used Average Usage (Days Used) Hours of Usage 100.0% (30 of 30 days) 100.0% (30 of 30 days) 7 hrs. 46 mins. 58 secs. Device Settings Device Last Modified Min IPAP Breath Rate Tidal Volume AHI 35.8 DreamStation BiPAP AVAPS 30 05/19/2023 24 cmH2O 14 560 Clear Airway Apnea Index Obst. Airway Apnea Index Mode EPAP Pressure Max IPAP Timed Inspiration Rise Time Setting Hypopnea Index RERA Index S/T - AVAPS 16 cmH2O 27 cmH2O Vibratory Snore Index 1.3 1 %of Night In Periodic Breathing 0 Average Minute Ventilation 7.2 l/min Average Tidal Volume 0 Average Breath Rate 35.8 Average IPAP 0 Average EPAP 0 3.6 %of Patient-Triggered Breaths 382.9 ml Median Unintended Leak 87 l/min Ave. Large Leak/Day 15.7 Ave % Large Leak 17.[address] % Mask Fit [address] Peak Insp. Patient Flow 43.7 90% IPAP Average Unintended Leak 81.2 l/min 90% EPAP 05:08:16 Printed By: angel Castillo 08/18/2023 34 Care Telephone Directory Deliverer Version: 1.51.0 24 l/min 23.5 cmH2O 15.9 cmH2O Fax recieved for DL request from provider for 30 day compliance, this was sent. Called and LVM regarding mask leak and resupply. /francisco/ SHIRA ROUSE registered respiratory therapist Signed: 08/18/2023 14:[address] [facility]
--- OUTSIDE RECORDS SUMMARY | 2023-10-25 20:28 | XMS_ITS ---
Author Organization [facility] Address [address] [place] [address] Care Team Providers Care Publicity Agent Name Role Phone Unavailable Unavailable Unavailable Surgery Details Not on file Complications Check Surgery Details section. Procedure Estimated Blood Loss Check Surgery Details section. Procedure Findings Check Surgery Details section. Procedure Specimens Taken Check Surgery Details section.
--- OUTSIDE RECORDS SUMMARY | 2023-10-25 20:28 | XMS_ITS | Data Portability ---
Author Organization [place] - [facility], [employer] Address [address] [facility] [place] [address] Assessment Encounter Date Assessment Date Assessment LastModified by Organization Details LastModified Time 08/10/2022 08/10/2022 Nails were debrided as previously documented. The patient can be seen in 3 months or sooner if acute problems arise. Patient does not meet class criteria for nail cares and an ABN was signed today. Not available 08/10/2022 11:34:52 10/12/2022 10/12/2022 Discussed with t he patient today his diagnosis as detailed down below. The patient was informed that in regards to his right Hallux nail he was informed that he is at higher risk of complication secondary to reduced blood flow. He was informed that my overall recommendation would be to perform slant back procedures to help reduce his pain, while still mitigating risk, however he mentions that he would like to take on added risk secondary to long standing, chronic nature of his pain. He does have an appointment with a knee specialist to a have a left knee replacement in the near future (October 25 appointment) and I did discuss with him that we should await all discussions regarding this procedure until after it is determined when his knee surgery will take place to allow for optimal recovery. Patient was in agreement and will contact back after his upcoming appointment for further discussion. Not available 10/12/2022 11:54:25 11/23/2022 11/23/2022 Nails were debrided as previously documented. The patient can be seen in 3 months or sooner if acute problems arise. Patient does have evidence of PVD and we will order a referral to [facility] for further assessment of a possible toenail procedure (they will obtain baseline blood flow results) Not available 11/23/2022 10:18:30 02/15/2023 02/15/2023 Nails were debrided as previously documented. The patient can be seen in 3 months or sooner if acute problems arise. Patient does have evidence of PVD and will be following the recommendations by BUBBA going forward with this. I did perform a phenol and alcohol procedure to the right Hallux nail secondary to being cleared by BUBBA to heal this procedure. Not available 02/15/2023 13:52:45 03/08/2023 03/08/2023 The patient was informed that he is healing well post procedure and that he will be seen in an as needed capacity moving forward. Not available 03/08/2023 20:15:27 Plan of Treatment Reminders Order Date Submit Date Provider Last Modified By Organization Details Last Modified Time Details Appointments None record ed. Lab None record ed. Referral None record ed. Procedures None record ed. Surgeries None record ed. Imaging None record ed. Medication Orders None record ed. Patient TargetsNo targets recorded. Patient InstructionsNo instructions recorded. Reason for Referral None Reported. Results Created Date Observation Date Name Description Value Unit Range Abnormal Flag LastModifiedBy Organization Detail LastModifiedTime 12/04/1912/02/2022 imagi ng/di agnos tic resul t No observ ation record ed. [facility] [address], [place], [address], 12/05/2022 11:00:57 Result Notes None recorded. Problems Name Status Onset Date Resolution Date Notes Provider Name and Address Organization Details Recorded Time Corns and callus Active 2013 Corns and Callosities; Original Code: 700 Original Codesystem: ICD-9-CM Class ification: Medical Confir mation Status: Confirmed Not Available [facility] 3 08:59:19 Obesity Active 2013 Obesity; Original Code: 278.00 Origina l Codesystem: ICD-9-CM Class ification: Medical Confir mation Status: Probable Not Available [facility] 3 08:59:20 Onychomycosis due to dermatophyte Active 2010 Onychomycosis. .; Original Code: 110.1 Original Codesystem: ICD-9-CM Class ification: Medical Confir mation Status: Confirmed Not Available [facility] 3 08:59:20 Foot pain Active 2015 Foot pain; Original Code: 538415499 Orig inal Codesystem: SNOMED CT Classificat ion: Medical Confir mation Status: Confirmed Not Available [facility] 3 08:59:21 Chronic ulcer of lower extremity Active 2014 Chronic ulcer of lower extremity; Original Code: 88393248 Origi nal Codesystem: SNOMED CT Classificat ion: Medical Confir mation Status: Confirmed Not Available [facility] 3 08:59:22 Onychomycosis of toenails Active 2015 Onychomycosis of toenails; Original Code: 3802200411 Al ginal Codesystem: SNOMED CT Classificat ion: Medical Confir mation Status: Confirmed Not Available [facility] 3 08:59:22 Peripheral venous insufficiency Active 2014 Peripheral venous insufficiency; Original Code: 47144191 Origi nal Codesystem: SNOMED CT Classificat ion: Medical Confir mation Status: Confirmed Not Available [facility] 3 08:59:22 Notes:Anticoagulated (V58.61 ) Original Code: V58.61 Original Codesystem: ICD-9-CM Classification: Medical Confirmation Status: Confirmed Problem Notes None recorded. Procedures Surgical History Date Name Laterality Status Provider Name and Address Organization Details Recorded Time 02/16/[address] Alejandro Goddard DPM [address] [place], [address], [facility] 02/15/2023 13:51:19 02/16/[address] Alejandro Goddard DPM [address] [place], [address], [facility] 02/15/2023 13:51:46 11/24/[address] Allen completed Chaz Goddard DPM [address] [place], [address], [facility] 11/23/2022 10:05:04 08/11/[address] Allen completed Chaz Goddard DPM [address] [place], [address], [facility] 08/10/2022 11:34:43 06/09/[address] Allen completed Chaz Goddard, [facility] [address] [place], [address], [facility] 06/08/2022 12:00:38 03/30/[address] Allen completed Chaz Goddard, ARIELLA [address] [place], [address], [facility] 03/30/2022 11:23:16 Imaging Results Imaging Date Name Status LastModified by Organizatio n Details LastModified Time 12/02/2022 imaging/diag nostic result active [facility] [address] [place] [address] [address], [place], [address], 12/05/2022 11:00:57 Procedure Notes None recorded. Medical Equipment None Reported. Allergies Allergen ID Allergen Name Allergen Category Reaction Reaction Severity Criticality Documentation Date Start Date Code Code System Note Provider Name and Address Organization Details Recorded Time 861 lisinopri l medicatio n Not available Not available Not available 03/30/2022 11130 RxNorm Payton Webb [facility] 11:13:42 Medications Name Sig Start Date Stop Date Status Note LastModified by Organization Details LastModified Time amoxicillin 500 mg capsule TAKE 4 CAPSULE BY MOUTH 1 HOUR PRIOR TO ANY DENTAL PROCEDURE, INCLUDING ROUTINE CLEANING active Not Available Not Available No t Available latanoprost 0.005 % eye drops INSTILL ONE DROP IN AFFECTED EYE(S) EVERY EVENING. active Not Available Not Available No t Available primidone 50 mg tablet TAKE ONE AND ONE-HALF TABLETS BY MOUTH AT BEDTIME active Not Available Not Available No t Available carvedilol 12.5 mg tablet TAKE ONE TABLET BY MOUTH TWICE A DAY WITH MEALS active Not Available Not Available No t Available spironolacto ne 25 mg tablet TAKE 1.5 TABLETS (37.5MG) BY MOUTH ONCE DAILY active Not Available Not Available No t Available potassium chloride ER 20 mEq tablet,exten ded release(part /cryst) TAKE 2 TABLETS BY MOUTH TODAY THEN TAKE ONE TABLET BY MOUTH EVERY DAY UNTIL YOUR FOLLOW UP CARDIOLOGY APPOINTMENT active Not Available Not Available Not Available warfarin 5 mg tablet TAKE ONE TABLET BY MOUTH EVERY DAY active Not Available Not Available No t Available oxycodone 5 mg tablet active Not Available Not Available No t Available rosuvastatin 20 mg tablet TAKE ONE TABLET BY MOUTH AT BEDTIME active Not Available Not Available No t Available brimonidine 0.2 %-timolol 0.5 % eye drops INTILL ONE DROP IN RIGHT EYE TWICE A DAY active Not Available Not Available Not Available Jardiance 10 mg tablet TAKE ONE TABLET BY MOUTH EVERY DAY active Not Available Not Available No t Available Entresto 49 mg-51 mg tablet TAKE ONE TABLET BY MOUTH TWICE A DAY active Not Available Not Available No t Available Entresto 24 mg-26 mg tablet TAKE ONE TABLET BY MOUTH TWICE A DAY active Not Available Not Available No t Available Vitals None Recorded Social History None recorded. Functional Status None recorded. Mental Status None recorded. Family History Nothing Reported. Medical History No medical history recorded. Past Encounters Encounter ID Performer Location Encounter Start Date Encounter Closed Date Diagnosis/Indication Diagnosis SNOMED-CT Code [id number] Chaz Goddard DPM [facility] [address] [place] [id number] 03/30/2022 11:10:24 03/30/2022 12:30:55 Pain in left foot [id number] 7 Pain in right foot 32732 747965615 7 Onychomycosis 081465998 Long-term current use of anticoagulant 023634108 [id number] [facility] [address] [place] [id number] 06/08/2022 11:20:30 06/09/2022 09:20:05 Pain in left foot 09469277979281 7 Pain in right foot 28188 748650517 7 Onychomycosis 034568924 Long-term current use of anticoagulant 403101405 [id number] [facility] [address] [place] [id number] 08/10/2022 11:25:11 08/11/2022 09:24:12 Pain in left foot 85241228756604 7 Pain in right foot 09881 482094705 7 Onychomycosis 561901186 Long-term current use of anticoagulant 600046304 [id number] Chaz Goddard DPM [facility] [address] [place] [address] 10/12/2022 10:09:18 10/13/2022 09:51:18 Pain in right foot 36388878295398 7 Onychomycosis 499776257 Long-term current use of anticoagulant 090029977 Ingrowing nail 608448660 [id number] [facility] [address] [place] [address] 11/23/2022 09:47:36 11/24/2022 12:31:02 Pain in left foot 91922169795283 7 Pain in right foot 75284 302320427 7 Onychomycosis 654134136 Long-term current use of anticoagulant 247660877 Peripheral vascular disease 605844615 [id number] [facility]A [facility] [address] [place] [id number] 02/15/2023 11:50:28 2023 15:22:04 Peripheral vascular disease 017475620 Onychomycosis 627195695 Long-term current use of anticoagulant 340050002 Pain in left foot 663853 91891986 7 Pain in right foot 06702 766186601 7 [id number] Chaz Goddard DPM [facility] [address] [place] [phone] 03/08/2023 11:27:02 03/09/2023 11:00:51 Onychomycosis 120219927 Long-term current use of anticoagulant 031413639 Pain in left foot 930684 76165365 7 Pain in right foot 45256 704398548 7 Health Concerns Section Related Observation LastModified by Organization Detai ls LastModified Time None Recorded Concern Status LastModified by Organization Details LastModified Time None Recorded Advance Directives Directive None Recorded Payers Encounter Date Sequence Insurance Name Policy Number Policy Hawkins Covered Member ID Hawkins Member ID Guarantor Name 08/10/2022 1 [employer] Alirio Bocanegra [id number] Alirio Bocanegra 10/12/2022 1 [employer] Alirio Bocanegra [id number] Amezquita Carlos Daljit 11/23/2022 1 [facility] Amezquita Carlos Daljit [id number] Amezquita Carlos Daljit 02/15/2023 1 [facility] Alirio Bocanegra [id number] Alirio Bocanegra 03/08/2023 1 [facility] [employer] Alirio Bocanegra [id number] Alirio Bocanegra Notes Date Note Type Note Provider Name and Address Organization Details Recorded Time 08/10/2022 text/html HPI Notes: 76 ye ar old male who presents with the chief complaint. Presents today for evaluation of problematic toenails and feet in general. They relate chronic thickening and deformity to their toenails that has not responded to self-trimming, topical xvvl-rbj-oqcpako anti-fungal therapy, foot soaks, and other similar conservative treatments. Nails are painful with ambulation and shoegear. Denies any recent foot injury or infection. Claudication symptoms: no Burning symptoms: no Paresthesia: no Patient presents for further evaluation and treatment options. Chaz Goddard DPM [address] [place], [address], [facility] 08/10/2022 11:34:55 10/12/2022 text/html HPI Notes: Siobhan brasher is a 77 year old male established patient who presents today for evaluation of a painful right big toe nail. Patient mentions that this has been an issue for many years even outside of the times I have taken over his care. Mentions that he is interested in discussing possible nail removal. Chaz Goddard DPM [address] [place], [address], [facility] 10/12/2022 11:54:28 11/23/2022 text/html HPI Notes: 76 ye ar old male who presents with the chief complaint. Presents today for evaluation of problematic toenails and feet in general. They relate chronic thickening and deformity to their toenails that has not responded to self-trimming, topical alwc-bsb-znpuakj anti-fungal therapy, foot soaks, and other similar conservative treatments. Nails are painful with ambulation and shoegear. Denies any recent foot injury or infection. Claudication symptoms: no Burning symptoms: no Paresthesia: no Patient presents for further evaluation and treatment options. Chaz Goddard DPM [address] [place], [address], [facility] 11/23/2022 10:18:32 02/15/2023 text/html HPI Notes: 77 ye ar old male who presents with the chief complaint. Presents today for evaluation of problematic toenails and feet in general. They relate chronic thickening and deformity to their toenails that has not responded to self-trimming, topical jheu-fxb-uxtqkdh anti-fungal therapy, foot soaks, and other similar conservative treatments. Nails are painful with ambulation and shoegear. Denies any recent foot injury or infection. The patient has been seen by Vascular interventional experts who have scheduled the patient for bilateral venous disease treatments. He did also have an MIRELLA with waveforms that showed an appropriate level of bloodflow to heal a nail avulsion procedure. Claudication symptoms: no Burning symptoms: no Paresthesia: no Patient presents for further evaluation and treatment options. Chaz Goddard DPM [address] [place], [address], [facility] 02/15/2023 13:52:48 03/08/2023 text/html HPI Notes: Siobhan brasher is a 78 year old male established patient who presents to clinic today for evaluation of a right side Hallux nail phenol and alcohol procedure performed on 02/15/2023. Mentions that he has adhered to the post procedure instructions without difficulty at this time or complication. Chaz Goddard DPM [address] [place], [address], [facility] 03/08/2023 20:15:33
--- OUTSIDE RECORDS SUMMARY | 2023-10-25 20:28 | XMS_ITS | Clinical Summary ---
Author Organization [facility] Address [address] [place] [address] Care Team Providers Care Continuous Conveyor Screen Drier Name Role Phone Unavailable Primary Care Provider Unavailabl e Source Comments Patient records contain information from all sites at [facility]. For routine questions regarding patient records, call [phone] during business hours, M-F 8:00 AM - 5:00 PM Central Time. Record requests for emergency care only can be directed to [phone] at any time.[facility] Social History Tobacco Use Types Packs/Day Years Used Date Smoking Tobacco: Never Assessed Nutrition Answer Date Recorded Nutrition: EVOO Fat Source Unknown 06/09 Nutrition: Servings of Fruits/Vegetables per Day Not on file 06/09/2020 Dental Answer Date Recorded Dental: Regular Dentist Unknown 06/10/19 21 Sex and Gender Information Value Date Recorded Sex Assigned at Not on file Gender Identity Not on file Sexual Orientation Not on file Plan of Treatment Health Maintenance Due Date Last Done Comments Hepatitis C Screening 1945 Depression Screening (Annual PHQ-2) 04/10/2023 Fall Risk Screen (Annual) 04/10/2023 COVID-19 Vaccine (7 - 2022-2 4 season) 2023 01/25/2023, 12/29/2021, 07/16/2021, Additional history exists Influenza Vaccine (#1) 2024 , 12/27/2021, 12/27/2021, Additional history exists DTaP,Tdap,and Td Vaccines (4 - Td or Tdap) 03/18/2031 03/18/2021, 08/24/2011, 12/07/2007, Additional history exists Pneumococcal vaccine (65+ years) Completed 10/06/2015, 08/24/2012, 08/22/2012, Additional history exists Zoster Vaccines Completed 09/13/2018, 06/08, 09/08/2008, Additional history exists
--- OUTSIDE RECORDS SUMMARY | 2023-10-25 20:28 | XMS_ITS | Referral Summary ---
Author Organization [facility] Address [address] [place] [address] Care Team Providers Care Checkroom Attendant Name Role Phone Unavailable Primary Care Provider Unavailabl e Source Comments Patient records contain information from all sites at [facility]. For routine questions regarding patient records, call [phone] during business hours, M-F 8:00 AM - 5:00 PM Central Time. Record requests for emergency care only can be directed to [phone] at any time.[facility] Social History Tobacco Use Types Packs/Day Years [...] Orientation Not on file Plan of Treatment Not on file
== END 2023-10-25 20:21 | disposition home or self-care (01) ==
PROVIDERS: PCP Nurse Practitioner; Visit Provider Internal Medicine
DX: G47.33 Obstructive sleep apnea (adult) (pediatric) (principal)
CPT/HCPCS: 95811

== ENCOUNTER 2024-09-18 13:55 | Outpatient (CLI) | payer OTHER, SELFPAY | END 2024-09-18 13:56 | disposition home or self-care (01) | LOC: WOUND 13:58 | PROVIDERS: PCP Nurse Practitioner; Visit Provider Surgery | DX: I89.0 Lymphedema, not elsewhere classified (principal); L97.822 Non-pressure chronic ulcer of other part of left lower leg with fat layer exposed; J84.10 Pulmonary fibrosis, unspecified; I44.2 Atrioventricular block, complete; I50.22 Chronic systolic (congestive) heart failure; Z79.01 Long term (current) use of anticoagulants; Z95.0 Presence of cardiac pacemaker | CPT/HCPCS: G0463 ==

== ENCOUNTER 2024-09-25 13:49 | Outpatient (CLI) | payer OTHER, SELFPAY | END 2024-09-25 13:50 | disposition home or self-care (01) | LOC: WOUND 13:49 | PROVIDERS: PCP Nurse Practitioner; Visit Provider Surgery | DX: I89.0 Lymphedema, not elsewhere classified (principal); Z87.2 Personal history of diseases of the skin and subcutaneous tissue; J84.10 Pulmonary fibrosis, unspecified; I44.2 Atrioventricular block, complete; Z95.0 Presence of cardiac pacemaker; Z79.01 Long term (current) use of anticoagulants | CPT/HCPCS: G0463 ==